=== PATIENT | female | born 1955 | race Caucasian/White ===

== ENCOUNTER 2019-07-05 15:44 | Outpatient (CLI) | payer OTHER, MEDICARE, SELFPAY ==
--- NOTE | 2019-07-05 16:00 | MR_ITS ---
WS: [id number] MRI LEFT KNEE HISTORY: pain COMPARISON: Knee radiograph 02/06/2019 Anterior cruciate ligament: Intact. Posterior cruciate ligament: Intact. Medial collateral ligament: Intact. Posterior lateral corner structures: PCL is being displaced from the knee joint by a large meniscal e xtrusion and osteophytes. No tear. Medial menisci: Intact. Normal signal, size and shape. Lateral meniscus: Anterior and posterior horns are abnormal shape and signal. Meniscal extrusion beyo nd the joint space. Horizontal tear in the posterior horn extends to the inferior articular surface. Extensor mechanism: Distal quadriceps tendon and patellar tendons are intact. Fluid and soft tissue: Small suprapatellar joint effusion. Lobulated Hogue's cyst extends over length of 7.0 cm. Osseous and articular structures: Patellofemoral compartment: Cartilage is intact. No displacement or marrow edema. Medial compartment: Mild narrowing of the medial compartment. No marrow edema in the cartilage is int act. Lateral compartment: Severe narrowing of the lateral compartment internal derangement. There is bone upon bone with marrow edema, complete loss of cartilage with meniscal extrusion and complex tears. Os teophytes extend laterally from the tibial plateau and femoral condyle. There is additional loss of c artilage over the posterior femoral condyle and subchondral cystic edema. MR/MR knee LT wo con* [id number] IMPRESSION: 1. Severe internal derangement lateral compartment of the LEFT knee. Complete loss of cartilage with bone upon bone and extruded meniscus with meniscal tears . 2. Large Hogue's cyst.
== END 2019-07-05 15:45 | disposition home or self-care (01) ==
PROVIDERS: Family Provider Family Medicine; PCP Family Medicine; Visit Provider Orthopaedic Surgery
DX: M71.22 Synovial cyst of popliteal space [Baker], left knee (principal); M25.562 Pain in left knee
CPT/HCPCS: 73721

== ENCOUNTER 2019-08-08 06:58 | Outpatient (CLI) | payer OTHER, MEDICARE, SELFPAY ==
--- NOTE | 2019-08-08 07:15 | MR_ITS ---
WS: [id number] MRI RIGHT KNEE HISTORY: Chronic pain COMPARISON: 02/06/2019 radiograph. Anterior cruciate ligament: Intact. Posterior cruciate ligament: Intact. Medial collateral ligament: Intact. Posterior lateral corner structures: Fluid surrounding the popliteus tendon with increased signal in the lateral corner structures. Medial menisci: Anterior and posterior horns are abnormal. Horizontal tear extending through the post erior horn with abnormal signal extending toward the meniscal root and also into the body of the meni scus. The anterior horn contains a horizontal tear and is partially extruded. Lateral meniscus: On the very last image through the posterior horn towards the meniscal root is incr eased signal extending to the superior articular surface. Anterior horn as a normal triangular struct ure is not identified. Extensor mechanism: Distal quadriceps tendon and patellar tendons are intact. Fluid and soft tissue: Moderate-sized joint effusion. Large lobulated Hogue's cyst extends over a stevie gth of at least 8.2 cm. Small loose bodies within the Hogue's cyst. Small amount of fluid surrounding the popliteus tendon. Osseous and articular structures: Patellofemoral compartment: Normal. Medial compartment: Severe narrowing medial compartment with bone upon bone with complete loss of car tilage. Subchondral edema involving the femoral condyle and tibial plateau. Small osteophytes. There is an osteochondral defect in the midportion of the femoral condyle. Lateral compartment: Moderate narrowing of the lateral compartment with osteophytes. Thinning of the cartilage with fissuring. No full-thickness defect. There is a small amount of marrow edema at the ba se of the lateral tibial spine. MR/MR knee RT wo con* [id number] IMPRESSION: 1. Severe osteoarthritis in the medial compartment. Bone upon bone with loss o f cartilage, subchondral edema and meniscal tears. 2. Moderate-sized joint effusion. 3. Large lobulated Hogue's cyst with loose bodies. 4. Fluid surrounding the popliteus tendon 5. Abnormal lateral menisci. Anterior meniscus is macerated. On the very last image through the meniscal root of the posterior horn is increased signal. Thi s increased signal may be external to the meniscal root. 6. Mild to moderate osteoarthritis lateral compartment.
== END 2019-08-08 06:59 | disposition home or self-care (01) ==
LOC: RADSHAW 07:01
PROVIDERS: Family Provider Family Medicine; PCP Family Medicine; Visit Provider Orthopaedic Surgery
DX: M25.561 Pain in right knee (principal); G89.29 Other chronic pain; M17.11 Unilateral primary osteoarthritis, right knee; M25.461 Effusion, right knee; M71.21 Synovial cyst of popliteal space [Baker], right knee
CPT/HCPCS: 73721

== ENCOUNTER 2020-01-08 08:40 | Inpatient (IN) | payer OTHER, MEDICARE, SELFPAY ==
--- NOTE | 2020-01-02 10:52 | ECG_ITS ---
[facility] Test Date: 2020-01-02 Pat Name: Mariano Summers Department: Room: Gender: Female Liaison Officer: : 1955 Requested By: Lian Palomo Order Number: [id number] [place] MD: Vanessa Mantilla M.D. Measurements Intervals [place] Rate: 73 P: 48 [place]: 206 QRS: 67 QRSD: 97 T: 62 QT: 410 QTc: 454 Interpretive Statements SINUS RHYTHM NONSPECIFIC T-WAVE ABNORMALITY No previous ECG available for comparison Electronically Signed On 01-02-2020 17:29:22 CDT by Vanessa Mantilla M.D. [id number]
[2020-01-02 10:54] VITALS: BMI 27.4
[2020-01-02 10:54] LABS: Basophils % 0.5 %; Eosinophils # 0.1 10^3/uL (0.0-0.8); Eosinophils % 1.4 %; Hematocrit 43.1 % (37.0-47.0); Lymphocytes # 1.3 10^3/uL (0.8-4.8); Lymphocytes % 19.6 %; Mean Corpuscular HGB Conc 32.5 g/dL (30.0-36.0); Mean Corpuscular Hemoglobin 31.2 pg (28.0-34.0); Mean Platelet Volume 9.5 fL (7.4-10.4); Monocytes # 0.5 10^3/uL (0.2-0.9); Monocytes % 7.2 %; Neutrophils # 4.67 10^3/uL (1.8-7.7); Nucleated Red Blood Cells % 0 %; Platelet Count 280 10^3/cmm (130-400); Red Blood Count 4.49 10^6/uL (4.1-5.3); Red Cell Distribution Width 12.3 % (12.1-15.1); White Blood Count 6.6 10^3/uL (4.0-10.0)
--- NOTE | 2020-01-02 11:14 | ANES.PREANE2 ---
Pre-Anesthetic Assessment Pre-Anesthetic Assessment: Height/Weight: Height 1.6 m Weight 70.307 kg Preop Diagnosis: OA Proposed Procedure: Operation Date: 01/08/20 07:00 Proposed Procedures p Total Knee Arthroplasty 20173 M17.0(Left) - Mac Gaxiola MD Familial anesthetic complications: None Social: Social History: No alcohol and No tobacco Exam: Pre-Anes Outpt Exam: alert, oriented x 3, clear to auscultation bilaterally and regular rate & rhythm Airway: Cervical ROM: WNL Dentition: Chipped, False and Partials Pulmonary: Pulmonary: None reported Metabolic: Metabolic: Thyroid Anesthetic Plan: ASA status: 2 Anesthesia: Eval. for regional block and Regional (specify below) Other: Will attempt spinal, though patient afraid of needles. informed her she can ask us to stop at anytime if she become uncomfortable Risk of > 500 ml blood loss (7ml/kg in children): No PFSH Anesthesia PFSH: Medical History Osteoarthritis of knees, bilateral Primary osteoarthritis of right knee Family History Denies family history of Diabetes CAD (coronary artery disease) Clotting disorder Dementia Hyperlipidemia Psychiatric illness Chronic kidney disease (CKD) Suicide Anesthesia complication Bleeding disorder Family history of premature coronary artery disease Lung disease Cancer Hypertension Stroke Social History (Updated 01/02/20 @ 10:39 by Merissa Nicole) Smoking and tobacco status: former smoker Alcohol intake: never Data Anesthesia CBC & Chem 7: 01/02/20 10:45 Other Labs: Laboratory Results - last 48 hr 01/02/20 10:45 WBC 6.6 RBC 4.49 Hgb 14.0 Hct 43.1 MCV 96.0 MCH 31.2 MCHC 32.5 RDW 12.3 Plt Count 280 MPV 9.5 Neut % (Auto) 71.0 Lymph % (Auto) 19.6 Cannon % (Auto) 7.2 Eos % (Auto) 1.4 Baso % (Auto) 0.5 Neut # (Auto) 4.67 Lymph # (Auto) 1.3 Cannon # (Auto) 0.5 Eos # (Auto) 0.1 Baso # (Auto) 0.0 Nucleated RBC % (auto) 0 Nucleated RBCs # 0.0 Cardiac Studies: No Data to Display
--- NOTE | 2020-01-02 14:17 | SUR.PREOP ---
spoke with pt and phone and pt unable to come for drive thru covid testing at 11am due to unable to get off work at [employer], pt to come in on wednesdayjanuary 04 at 1530 after work to get test done
[2020-01-07 16:28] LABS: Coronavirus Lab Test PTC Negative
[2020-01-08] VITALS (11 sets, daily range): BP systolic 110–150; BP diastolic 53–94; PULSE 64–98; RESP 12–18; TEMP 36.1–36.5; O2SAT 92–98
[2020-01-08] MEDS: sodium chloride 0.9% 1,000 ML 30 ML IV (06:01)
--- NOTE | 2020-01-08 06:16 | P.ANESUD_ITS ---
Pre-Anesthetic Update Pre-Anesthetic Assessment: Date of Surgery/Procedure: 01/08/20 Preop Zoey gnosis: Osteoarthritis left knee Proposed Procedure: Operation Date: 01/08/20 07:00 Proposed Procedures p Total Knee Arthroplasty 69881 M17.0(Left) - Mac Gaxiola MD Last Intake: Intake Last Liquid Date 01/08/20 Last Liquid Time 05:00 Last Solid Date 01/07/20 Last Solid Time 20:00 Labs Last 48hrs: Laboratory Results - last 48 hr 01/05/20 16:04 Nasal/Oral COVID-1 9 PCR Negative Vitals: Temperature 96.9 F L 01/08/20 05:40 Temperature Source Temporal Artery S can 01/08/20 05:40 Pulse Rate 81 01/08/20 05:40 Respiratory Rate 18 01/08/20 05:40 Blood Pressure 150/94 01/08/20 05:40 Blood Pressure Yue n 112 01/08/20 05:40 Pulse Oximetry 95 01/08/20 05:40 Oxygen Delivery Me thod 01/08/20 05:40 Cardiac Studies: No Data to Display
--- NOTE | 2020-01-08 06:31 | ANES.PROC ---
Anesthesia Procedures Procedure/Date: 01/08/20 Nerve Block ^: Nerve Block 1: Main Anesthesia: general anesthesia Time Out Performed: Yes Consent: requested by attending/covering physician, from patient, risks and benefits reviewed and patient agrees to proceed Nerve block location: adductor canal (L) Anesthesia monitors applied: pulse oximetry and oxygen Nerve block position: semi sitting Anesthetic Used: ropivicaine 0.5% and with decadron (4 mg) Amount of anesthesia used (mL): 30 Ultrasound used to: recognize landmarks Nerve Stimulator Used?: Yes Interscalene/Femoral BLK: 4 stimuplex 21 g needle used for position and inplane approach and visualize local anesthetic spread Injection: neg aspiration of heme Patient Tolerated Procedure: well Complications: none
[2020-01-08] MEDS: midazolam 1 mg/mL INJ 2 mL 2 MG IVP (06:34)
--- NOTE | 2020-01-08 06:55 | W.PM.OPSUD ---
Surgery/Procedure H&P Update DATE OF PROCEDURE: January 08, 2020 PREOP DIAGNOSIS: Osteoarthritis left knee PLANNED PROCEDURE: Operation Date: 01/08/20 07:00 Proposed Procedures p Total Knee Arthroplasty 12517 M17.0(Left) - Mac Gaxiola MD
--- NOTE | 2020-01-08 06:56 | W.PM.OPSFHP ---
Same Day Surgery H&P Indication for Procedure/HPI DATE OF PROCEDURE: January 08, 2020 CHIEF COMPLAINT/INDICATIONFOR SURGICAL PROCEDURE: OA L knee PREOP DIAGNOSIS: Osteoarthritis left knee PLANNED PROCEDRUE: Operation Date: 01/08/20 07:00 Proposed Procedures p Total Knee Arthroplasty 07202 M17.0(Left) - Mac Gaxiola MD Medications/Allergies* Home Medications Medication Instructions Recorded Confirmed Type ascorbate calcium (vitamin C) 500 1,000 mg PO DAILY 06/16/19 01/08/20 History mg tablet escitalopram oxalate 20 mg tablet 20 mg PO DAILY 06/16/19 01/08/20 History levothyroxine 100 mcg capsule 100 mcg PO DIRECTED 06/16/19 01/08/20 History levothyroxine 88 mcg capsule 88 mcg PO DIRECTED 06/16/19 01/08/20 History docusate sodium [Stool Softener] 300 mg PO BEDTIME 01/02/20 01/08/20 History trazodone 25 mg PO BEDTIME 01/02/20 01/08/20 History vitamin Z05-cjezn acid 2 tab PO DAILY 01/02/20 01/08/20 History Allergies/Adverse Reactions Allergy/AdvReac Type Severity Reaction Status Date / Time Sulfa (Sulfonamide Allergy algy-rash Verified 11/21/19 08:03 Antibiotics) Current Medications: Generic Name Dose Route Start Last Admin Trade Name Freq PRN Reason Stop Dose Admin Sodium Chloride 1,000 mls @ 30 mls/hr 01/08/20 05:30 01/08/20 06:01 Sodium Chloride 0.9% IV 01/09/20 05:29 30 mls/hr .Q24H INDER Administration Midazolam HCl 2 mg 01/08/20 05:28 01/08/20 06:34 Versed IVP 2 mg Q5M PRN Administration Preop Anxiety Pertinent History/Comorbid Conditions* Medical History (Updated 11/21/19 @ 08:53 by Mac Gaxiola MD) Osteoarthritis of knees, bilateral Primary osteoarthritis of right knee Family History (Updated 06/16/19 @ 08:37 by Nayely Swenson LPN) Denies family history of Diabetes CAD (coronary artery disease) Clotting disorder Dementia Hyperlipidemia Psychiatric illness Chronic kidney disease (CKD) Suicide Anesthesia complication Bleeding disorder Family history of premature coronary artery disease Lung disease Cancer Hypertension Stroke Social History Smoking and tobacco status: former smoker Alcohol intake: never Pertinent Exam Findings alert, oriented x 3, clear to auscultation bilaterally and regular rate & rhythm Recommendations Surgery/Procedure today Coding Level of Care Code Acute Nurses' Association Counselor for Wilda Singh
[2020-01-08] MEDS: tranexamic acid 1,000 mg/10mL SDV 1000 MG IRRIGATION (08:00)
[2020-01-08] MEDS: ketorolac 30 mg/mL INJ IM (08:00)
[2020-01-08] MEDS: EPINEPHrine 1 mg/mL INJ XX (08:00)
--- NOTE | 2020-01-08 08:47 | PM.OP ---
Operative Report Date of procedure: January 08, 2020 Pre-op Diagnosis: Osteoarthritis left knee Post-op diagnosis: same Post-op Findings: The patient had eburnation of the lateral femoral condyle and lateral tibial plateau with maceration of the lateral menisci Procedure Done: Left total knee arthroplasty Implants: Shobha total knee arthroplasty components were used includin) Size 4 triathalon cruciate retaining femoral component 2) Size 3 Tritanium tibial component 3) Size 3/11 mm thickness CR tibial bearing insert Pathology: none sent Surgeon: Mac Gaxiola Anesthesia: Nerve Block (Final/adductor canal block) Estimated blood loss (mL): 150 Findings: The patient had eburnation of the lateral femoral condyle and lateral tibial plateau with maceration of the lateral menisci Condition: stable Disposition: PACU Brief History: The patient is a 64-year-old female with an MRI that revealed a lateral compartment degenerative changes and maceration of the lateral meniscus. She failed reasonable conservative measures including anti-inflammatories even steroid injections. Options were discussed and she elected to proceed with total knee arthroplasty to improve pain and function Procedure: The patient was taken to the operating room. Patient was given 1 g of tranexamic acid . The above anesthesia provided by the anesthesia service. A timeout was performed. The patient was prepped and draped in the usual fashion with the lower extremity exposed. A anterior incision was made, midline, from a point proximal to the patella to the distal tibial tubercle. The knee was entered through a medial parapatellar approach. The patella could be displaced laterally and the knee flexed. The patellar fat pad was resected to provide better visibility. Retractors were placed medially and laterally adjacent to the tibial plateau. The femoral canal was drilled in line with the longitudinal axis of the femur. Intramedullary femoral guide for used to make a distal femoral cut in 5 degrees of valgus, resecting 8 mm from the more prominent condyle. Next the extra medullary tibial guide was placed in alignment with the longitudinal axis of the tibia. The cutting guides were set to remove just over 9 mm from the high tibial plateau. The proximal tibia was then cut. The femoral measuring guide was then placed over the distal femur. Rotation was verified checking the relationship of the guide to the condyle and the trochlear groove. The femur was measured and cut for the desired femoral component. The desired tibial baseplate was then chosen. A trial reduction with the femur tibial baseplate and polyethylene was done, assuring that the knee was stable throughout full motion. Ligament balancing involved nothing more than a release of the deep medial collateral ligament.The tibia was prepared for the tibial baseplate. The patella was carefully inspected with no significant chondromalacia identified. Decision was made to proceed with no resurfacing of the patella all surfaces were cleaned with pulsatile lavage. The femur and tibia were then press-fit into place. The posterior capsule and collateral ligaments were then injected with a solution of 100 mL of 0.2% ropivacaine, 1 mL of a 1:1000 epinephrine solution, and 30 mg of Toradol. Final polyethylene component was then snapped into place into the tibia. 2 grams of tranexamic acid were applied to the wound. The tourniquet was deflated. The tranxanemic acid was left contact with the knee for 5 minutes before the knee was irrigated with saline. The extensor retinaculum was closed with 1 Ethibond. The subcutaneous tissues were closed with 2-0 Vicryl and the skin was closed with skin tiny. A compressive dressing was applied. The patient was taken to recovery room in stable condition.
--- NOTE | 2020-01-08 09:02 | SUR.PHASEI ---
RECIEVED PT AWAKE ALERT ON RA PT ALERT HOB AT 30 DEGREES, PT VSS LT KNEE DRESSING D/I NO DRAIN FIRST ICE TO SITE DISTAL FOOT PINK WARM WITH STRONG REGULAR PULSE NOTED MARKED AND BILAT FOOT PUMPS ON BARRETT TO DD STATLOCK PLACED TO RT THIGH.YELLOW URINE NOTED TO TUBING AND BAG IN SMALL AMT.
--- NOTE | 2020-01-08 09:03 | XRR_ITS ---
PROCEDURE INFORMATION: Exam: XR Left Knee Exam date and time: 01/08/2020 9:14 AM Age: 64 years old Clinical indication: Device placement; Joint replacement hardware; Prior surgery; Surgery date: Post-operative (0-2 days); Surgery type: Left total knee arthroplasty TECHNIQUE: Imaging protocol: XR Left knee. Views: 3 views. COMPARISON: MR knee LT wo con* [id number] 07/05/2019 4:05 PM FINDINGS: Bones/joints: Left knee arthroplasty, without postoperative complication. Anatomic alignment. Soft tissues: Postoperative subcutaneous emphysema and skin tiny. XR/XR knee LT 3V* [id number] IMPRESSION: Left knee arthroplasty, without postoperative complication.
--- NOTE | 2020-01-08 09:05 | SUR.PHASEI ---
PT WAS A SPINAL AND LEVEL BELOW T 12 PT ABLE TO MOVE BILAT FEET TO COMMAND NOT ABLE TO LIFT KNEE YET.
--- NOTE | 2020-01-08 09:14 | PM.PACU ---
PACU note PACU note: Spinal block receding, moving feet Post-Anesthesia Exam: awake and vital signs stable Disposition: admitted
[2020-01-08] MEDS: mupirocin oint 22 gm 1 APPLIC NASAL (10:47)
[2020-01-08] MEDS: ondansetron 2 mg/ML SDV 2 mL 4 MG IVP ×2 (10:52→18:15)
[2020-01-08] MEDS: sodium chloride 0.9% 1,000 ML 75 ML IV ×2 (11:10→23:10)
[2020-01-08] MEDS: metoclopramide 5 mg/mL SDV 2 mL 10 MG IV (13:32)
--- NOTE | 2020-01-08 19:24 | PC.NURSE ---
Pt has had no complaints of pain today. She has had intermittent nausea and vomiting, which was treated with Zofran x2 doses and Reglan x1 dose (see MAR). Bilateral foot pumps in place. Left knee surgical dressing dry and intact, with ice pack in place. Nasal cannula applied at 2L/min for intermittent oxygen desaturations during sleep, with SpO2 as low as 77%, which resolves quickly when pt is awakened and instructed to deep breathe. Pt states she does not normally wear oxygen.
[2020-01-08] MEDS: docusate sodium 100 mg Capsule 300 MG PO (21:46)
[2020-01-08] MEDS: chlorhexidine gluconate 0.12% Btl 473 mL 30 ML MUCOUS MEM (21:46)
[2020-01-08] MEDS: trazodone 50 mg Tablet 25 MG PO (21:47)
[2020-01-09] VITALS (11 sets, daily range): BP systolic 124–171; BP diastolic 69–78; PULSE 72–84; RESP 17–20; TEMP 36.8–37.1; O2SAT 95–98
[2020-01-09] MEDS: oxyCODONE 5 mg IR Tab/Cap PO ×5 (04:24→20:17)
[2020-01-09 04:54] LABS: Hemoglobin 11.5 g/dL (11.5-15.3)
--- NOTE | 2020-01-09 07:19 | ANE.PACU2 ---
Inpatient post-anesthesia follow up: Airway intact: Yes Vital signs: Temperature 98.8 F Pulse Rate 72 Respiratory Rate 18 Blood Pressure 124/69 Pulse Oximetry 97 Oxygen Delivery Me thod Room Air Oxygen Flow Rate Fraction of Inspir ed Oxygen Hydration adequate: Yes Nausea and vomiting: No Pain level: 4 Mental status: Baseline Additional Comments: Patient developed PONV post surgery. Possibly d/t morphine. Controlled now.
[2020-01-09] MEDS: ondansetron 2 mg/ML SDV 2 mL 4 MG IVP (08:24)
[2020-01-09] MEDS: aspirin 325 mg EC Tablet PO (08:28)
[2020-01-09] MEDS: chlorhexidine gluconate 0.12% Btl 473 mL 30 ML MUCOUS MEM ×4 (08:28→21:12)
[2020-01-09] MEDS: mupirocin oint 22 gm 1 APPLIC NASAL ×2 (08:29→17:45)
[2020-01-09] MEDS: levothyroxine 88 mcg Tablet PO (10:03)
[2020-01-09] MEDS: sodium chloride 0.9% 1,000 ML 75 ML IV (13:47)
--- NOTE | 2020-01-09 17:38 | P.PN_ITS ---
Subjective Subjective: Interval history: Patient was vomiting last night. Pain uncontrolled with oral medications required IV Tylenol today Vitals/I&O/Wt Last Vital Signs Temp 98.6 F 01/09/20 15:56 Pulse 83 01/09/20 15:56 Resp 18 01/09/20 16:29 BP 171/77 01/09/20 15:56 Pulse Ox 96 01/09/20 15:56 01/09/20 01/09/20 01/09/20 06:59 14:59 22:59 Intake Total 950 / 1280 1310 / 1310 Output Total 350 / 1200 400 / 400 Balance 600 / 80 910 / 910 Physical Exam Narrative: EXAM NARRATIVE: Knee dressing clean and dry. Minimal swelling. No distal neurovascular deficit Urinary Catheter Management^: F: Cath Placed During This Visit: yes Urinary Catheter Date of Insertion: 01/08/20 Urinary Catheter Time of Insertion: 07:20 Data : 01/09/20 04:10 A&P Assessment and plan (1) Status post left knee replacement: Will keep overnight until tolerating pain with oral medications. Anticipate discharge tomorrow Status: Acute Attestations Medical Necessity Statement*: Patient has pain uncontrolled with oral medications alone. Will change to inpatient status and likely discharge home tomorrow Coding Level of Care Code Acute [employer] Truck Driver for Wilda Signh Diagnoses Status post left knee replacement Z96.652
--- NOTE | 2020-01-09 18:14 | PC.NURSE ---
summary pt started having severe pain prior to noon and was unable to sit on side of bed with phys tx. Which he worked with her while in bed because of that. I got a order from dr faith of [facility] which really helped her. pain is better now.
[2020-01-09] MEDS: docusate sodium 100 mg Capsule 300 MG PO (21:12)
[2020-01-09] MEDS: trazodone 50 mg Tablet 25 MG PO (21:12)
[2020-01-10] VITALS (10 sets, daily range): BP systolic 127–166; BP diastolic 63–88; PULSE 81–95; RESP 14–22; TEMP 36.9–37.4; O2SAT 88–97
[2020-01-10] MEDS: oxyCODONE 5 mg IR Tab/Cap PO ×3 (00:10→09:52)
--- NOTE | 2020-01-10 08:14 | PM.PN ---
Subjective Subjective: Interval history: Pain better controlled with oral meds. No vomiting last night. Vitals/I&O/Wt Last Vital Signs Temp 98.6 F 01/10/20 07:42 Pulse 92 01/10/20 07:42 Resp 18 01/10/20 07:42 BP 158/88 01/10/20 07:42 Pulse Ox 93 01/10/20 07:42 01/09/20 01/10/20 01/10/20 22:59 06:59 14:59 Intake Total 240 / 1550 400 / 1950 1100 / 1100 Balance 240 / 1150 400 / 1550 1100 / 1100 Physical Exam Narrative: EXAM NARRATIVE: Left knee incision clean and dry. Expected left knee swelling. Urinary Catheter Management^: F: Cath Placed During This Visit: yes Urinary Catheter Date of Insertion: 01/08/20 Urinary Catheter Time of Insertion: : Data : 01/09/20 04:10 A&P Assessment and plan (1) Status post left knee replacement: Continue to mobilize with therapy. We will try for discharge today. Patient struggling with pain control and nausea with pain meds and progress is slow. Status: Acute Attestations Medical Necessity Statement*: Will discharge home if pain controlled with meds and independent with walker. Coding Level of Care Code Acute Animal Damage Control Agent for Wilda Singh Diagnoses Status post left knee replacement Z96.652
[2020-01-10] MEDS: aspirin 325 mg EC Tablet PO (09:29)
[2020-01-10] MEDS: levothyroxine 88 mcg Tablet PO (09:29)
[2020-01-10] MEDS: chlorhexidine gluconate 0.12% Btl 473 mL 30 ML MUCOUS MEM ×4 (09:30→20:16)
[2020-01-10] MEDS: mupirocin oint 22 gm 1 APPLIC NASAL ×2 (09:31→17:33)
--- NOTE | 2020-01-10 10:18 | PC.NURSE ---
Students picked up tray.
[2020-01-10] MEDS: ondansetron 2 mg/ML SDV 2 mL 4 MG IVP (11:42)
--- NOTE | 2020-01-10 18:03 | PC.NURSE ---
END OF SHIFT SUMMARY pt slighty drowsy this am, but is A/Ox4. pt able to take morning meds well. pt able to get up to chair with standby assistance, but is transferring well. pt stated some nausea, but was relieved with Zofran. pt was able to rest well this afternoon and has since stated that she is feeling much better. pt is able to move left lower extremity and has been improving all throughout the day.
[2020-01-10] MEDS: docusate sodium 100 mg Capsule 300 MG PO (20:14)
[2020-01-10] MEDS: HYDROcodone-acetaminophen 5-325 mg Tablet 1 TAB PO (20:15)
[2020-01-10] MEDS: trazodone 50 mg Tablet 25 MG PO (20:16)
[2020-01-11 04:08] VITALS: BP 149/76; PULSE 92; RESP 18; TEMP 36.8; O2SAT 96
[2020-01-11] MEDS: HYDROcodone-acetaminophen 5-325 mg Tablet 1 TAB PO (04:31)
[2020-01-11 07:18] VITALS: BP 150/78; PULSE 86; RESP 18; TEMP 37.2; O2SAT 95
[2020-01-11] MEDS: mupirocin oint 22 gm 1 APPLIC NASAL (08:07)
[2020-01-11] MEDS: levothyroxine 88 mcg Tablet PO (08:08)
[2020-01-11] MEDS: chlorhexidine gluconate 0.12% Btl 473 mL 30 ML MUCOUS MEM (08:08)
[2020-01-11] MEDS: aspirin 325 mg EC Tablet PO (08:08)
--- NOTE | 2020-01-11 08:39 | PM.DCS ---
Discharge Providers Date of Admission: 01/09/20 17:37 Date of Discharge: January 11, 2020 Attending Provider at Admission: Mac Gaxiola MD Attending Provider at Discharge: Mac Gaxiola MD Primary Care Provider: Abhay Chamorro MD Diagnoses at Discharge Discharge Diagnosis (1) Status post left knee replacement: Status: Acute Reason for Visit Reason for Visit: bilaternal knee osteoarthtrits Hospital Course Hospital Course: The patient tolerated surgery well. They remained hemodynamically stable. They was begun on aspirin and sequential compression devices for DVT prophylaxis. The patient was mobilized with therapy beginning the day of surgery and by the first postoperative day independent with the walker. He continues to have problems with pain control and nausea with medications. By the third postoperative day she was tolerating hydrocodone and thought stable for discharge as the pain was adequately controlled and they were fully mobile they were discharged home. Physical Exam Narrative: EXAM NARRATIVE: On the day of discharge the knee incision was clean. They had no drainage. There is minimal swelling in the thigh and knee and the calf. No distal neurovascular deficits were noted Urinary Catheter Management^: F: Cath Placed During This Visit: yes Urinary Catheter Date of Insertion: 01/08/20 Urinary Catheter Time of Insertion: 07:20 Discharge Data Data Completed and Pending: Completed Studies During Hospitalization Category Date Time Status XR knee LT 3V* [id number] Routine Exams 01/08/20 09:03 Completed Vitals: Last Vital Signs Temp 98.9 F 01/11/20 07:18 Pulse 86 01/11/20 07:18 Resp 18 01/11/20 07:18 BP 150/78 01/11/20 07:18 Pulse Ox 95 01/11/20 07:18 Discharge Plan Discharge Patient Disposition: Home Health Service Condition: Stable Prescriptions: New hydrocodone-acetaminophen 5-325 mg Tablet 1 tab PO Q4H PRN (Reason: Moderate Pain) 7 Days Qty: 40 RF: 0 aspirin 325 mg Tablet,Delayed Release (Dr/Ec) 325 mg PO DAILY 30 Days Qty: 30 RF: 0 Continued ascorbate calcium (vitamin C) 500 mg tablet 1,000 mg PO DAILY RF: 0 levothyroxine 100 mcg capsule 100 mcg PO DIRECTED RF: 0 levothyroxine 88 mcg capsule 88 mcg PO DIRECTED RF: 0 escitalopram oxalate 20 mg tablet 20 mg PO DAILY RF: 0 trazodone 50 mg Tablet 25 mg PO BEDTIME RF: 0 vitamin H07-[id number] acid 0.5-1 mg Tablet 2 tab PO DAILY RF: 0 docusate sodium [Stool Softener] 100 mg Capsule 300 mg PO BEDTIME RF: 0 Discharge Orders: Discharge Order (Routine); Ordered 01/11/20 Ordered By: Mac Gaxiola Referrals: [facility] [Outside] (This is your home health provider. They will be calling to set up a time to begin home health services. If you do not hear from them in 1-2 days you may call their office at the phone number provided.) Mac Gaxiola MD [Physician] - 01/23/20 1:30 pm Discharge Diet: Advance as tolerated Discharge Activity: Limit activity as instructed Patient Instructions: Total Knee Replacement (DC) Activity Restrictions/Additional Instructions: May shower once incisions completely free of drainage. Discontinue knee dressing in 24-48 hours. Replaced dressings as needed. take Eek for breakthrough pain. Exercises per physical therapy. 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
[2020-01-11 12:00] VITALS: BP 144/83; PULSE 92; RESP 18; TEMP 36.4; O2SAT 95
[2020-01-11 14:23] VITALS: BP 144/83; PULSE 92; RESP 18; TEMP 36.4; O2SAT 95
== END 2020-01-11 14:41 | disposition home health service (06) | DRG 470 ==
LOC: MEDSURG 08:40
PROVIDERS: Admitting Provider Orthopaedic Surgery; PCP Family Medicine; Visit Provider Orthopaedic Surgery
PROC: 0SRD0JZ Replacement of Left Knee Joint with Synthetic Substitute, Open Approach (ICD-10-PCS; CPT 27447; principal; 2020-01-08 07:00)
DX: M17.0 Bilateral primary osteoarthritis of knee (principal); Z87.891 Personal history of nicotine dependence; G89.18 Other acute postprocedural pain
CPT/HCPCS: 12345; 36415; 51702; 73562; 85018; 85025; 87635; 93005; 96374; 96375; 97110; 97116; 97161; 97165; 97530; 97535; C1776; G0378; J0131; J0171; J0690; J1100; J1580; J1885; J2250; J2274; J2405; J2704; J2765; J2795; J7030

== ENCOUNTER 2020-01-29 08:33 | Outpatient (RCR) | payer OTHER, MEDICARE, SELFPAY | END 2020-02-07 23:59 | disposition home or self-care (01) | LOC: SPT 08:33 | PROVIDERS: PCP Family Medicine; Referring Provider Orthopaedic Surgery; Visit Provider Orthopaedic Surgery | DX: Z47.1 Aftercare following joint replacement surgery (principal); Z96.652 Presence of left artificial knee joint | CPT/HCPCS: 97110; 97116; 97161 ==

== ENCOUNTER 2020-02-08 06:00 | Outpatient (RCR) | payer OTHER, MEDICARE, SELFPAY | END 2020-03-09 23:59 | disposition home or self-care (01) | LOC: SPT 06:00 | PROVIDERS: PCP Family Medicine; Referring Provider Orthopaedic Surgery; Visit Provider Orthopaedic Surgery | DX: Z47.1 Aftercare following joint replacement surgery (principal); Z96.652 Presence of left artificial knee joint | CPT/HCPCS: 97110 ==

== ENCOUNTER → 2020-02-21 08:14 | Outpatient (BNVA) | payer OTHER, MEDICARE, SELFPAY | PROVIDERS: PCP Family Medicine; Visit Provider Orthopaedic Surgery | DX: Z47.1 Aftercare following joint replacement surgery (principal); Z96.652 Presence of left artificial knee joint | CPT/HCPCS: 73560; 73565 ==

== ENCOUNTER 2020-06-05 15:35 | Outpatient (CLI) | payer OTHER, MEDICARE, SELFPAY ==
--- NOTE | 2020-06-05 15:41 | MM_ITS ---
WS: [id number] BILATERAL DIGITAL SCREENING MAMMOGRAPHY WITH CAD CLINICAL INFORMATION: SCR HISTORY: Screening mammogram. No current complaints. COMPARISON: March 10, 2019 TECHNIQUE: Bilateral CC and MLO views. FINDINGS: Scattered fibroglandular densities bilaterally. No suspicious focal mass, asymmetry, calcifications, or architectural distortion. No evidence of malignancy. MM/[place] [id number] IMPRESSION: BI-RADS: 1-Negative FOLLOW UP: 1 Year Follow-up Recommend return to annual screening mammography.
== END 2020-06-05 15:36 | disposition home or self-care (01) ==
LOC: RADSHAW 15:36
PROVIDERS: PCP Family Medicine; Visit Provider Family Medicine
DX: Z12.31 Encounter for screening mammogram for malignant neoplasm of breast (principal)
CPT/HCPCS: 77067

== ENCOUNTER 2020-08-09 05:54 | Day surgery (SDC) | payer OTHER, MEDICARE, SELFPAY ==
[2020-08-08 13:48] VITALS: BMI 28.1
[2020-08-09 06:14] VITALS: BP 135/77; PULSE 85; RESP 18; TEMP 36.3; O2SAT 91
[2020-08-09] MEDS: sodium chloride 0.9% 1,000 ML 30 ML IV (06:20)
--- NOTE | 2020-08-09 06:51 | ANES.PREANE2 ---
Pre-Anesthetic Assessment Pre-Anesthetic Assessment: Height/Weight: Height 1.6 m Weight 72.121 kg Temp Pulse Resp BP Pulse Ox 97.3 F L 85 18 135/77 91 08/09/20 06:14 08/09/20 06:14 08/09/20 06:14 08/09/20 06:14 08/09/20 06:14 Preop Diagnosis: Screening Proposed Procedure: Operation Date: 08/09/20 07:00 Proposed Procedures p Colonoscopy z12.11 40612(Not Applicable) - Marito Welch MD Was Beta Randal taken within 24 hours: N/A Was Clonidine taken within 24 hours: N/A Last intake: Intake Last Liquid Date 08/08/20 Last Liquid Time 23:30 Last Solid Date 08/07/20 Last Solid Time 20:00 Social: Social History: No alcohol and No tobacco Exam: Pre-Anes Outpt Exam: alert, oriented x 3, clear to auscultation bilaterally and regular rate & rhythm Airway: Submandibular: WNL Cervical ROM: WNL MP: 2 Dentition: Chipped History/ROS: No significant history except as noted and No significant complaints Pulmonary: Pulmonary: None reported CV/HEM: CV/HEM: None reported : : None reported Hepatic: Hepatic: None reported GI: GI: None reported Metabolic: Metabolic: Thyroid Musc/skel: Musc/skel: None reported Neuropsych: Neuropsych: None reported Anesthetic Plan: ASA status: 2 Anesthesia: Anesthesia Evaluation and MAC Risk of > 500 ml blood loss (7ml/kg in children): No PFSH Anesthesia PFSH: Medical History (Updated 08/09/20 @ 06:54 by Marito Welch MD) Primary osteoarthritis of right knee Family History Denies family history of Diabetes CAD (coronary artery disease) Clotting disorder Dementia Hyperlipidemia Psychiatric illness Chronic kidney disease (CKD) Suicide Anesthesia complication Bleeding disorder Family history of premature coronary artery disease Lung disease Cancer Hypertension Stroke Social History Smoking and tobacco status: former smoker Alcohol intake: never Data Anesthesia Cardiac Studies: No Data to Display
--- NOTE | 2020-08-09 06:52 | W.PM.OPSUD ---
Surgery/Procedure H&P Update DATE OF PROCEDURE: August 09, 2020 DATE H&P PERFORMED: 08/05/20 PREOP DIAGNOSIS: Screening colonoscopy PLANNED PROCEDURE: Operation Date: 08/09/20 07:00 Proposed Procedures p Colonoscopy z12.11 68168(Not Applicable) - Marito Welch MD Related Problem List Diagnoses (1) Colon cancer screening:
[2020-08-09 07:17] VITALS: BP 101/61; PULSE 76; RESP 16; TEMP 36.4; O2SAT 93
[2020-08-09 07:31] VITALS: BP 131/72; PULSE 74; RESP 16; O2SAT 95
--- NOTE | 2020-08-09 13:00 | ANE.PACU2 ---
Inpatient post-anesthesia follow up: Airway intact: Yes Vital signs: Temperature 97.5 F Pulse Rate 74 Respiratory Rate 16 Blood Pressure 131/72 Pulse Oximetry 95 Oxygen Delivery Me thod Room Air Oxygen Flow Rate Fraction of Inspir ed Oxygen Hydration adequate: Yes Nausea and vomiting: No Pain level: 2 Mental status: Baseline
== END 2020-08-09 07:50 | disposition home or self-care (01) ==
PROVIDERS: PCP Family Medicine; Visit Provider Family Medicine
PROC: 0DJD8ZZ Inspection of Lower Intestinal Tract, Via Natural or Artificial Opening Endoscopic (ICD-10-PCS; CPT 45378; principal; 2020-08-09 07:00)
DX: Z12.11 Encounter for screening for malignant neoplasm of colon (principal); Z87.891 Personal history of nicotine dependence; E03.9 Hypothyroidism, unspecified; E78.5 Hyperlipidemia, unspecified; M17.11 Unilateral primary osteoarthritis, right knee
CPT/HCPCS: 12345; 96360; G0121; J2704; J7030

== ENCOUNTER 2020-11-11 22:20 | Inpatient (IN) | payer OTHER, MEDICARE, SELFPAY ==
[2020-11-11 22:40] VITALS: BP 182/89; PULSE 67; RESP 20; TEMP 36.7; O2SAT 97; BMI 26.5
--- NOTE | 2020-11-11 22:44 | XRR_ITS ---
PROCEDURE INFORMATION: Exam: XR Chest Exam date and time: 11/11/2020 10:44 PM Age: 65 years old Clinical indication: Patient HX: Stroke alert. Post covid 2019. TECHNIQUE: Imaging protocol: XR of the chest. Views: 1 view. COMPARISON: [facility] Ribs LEFT w Chest 1v 04/16/2017 3:58 PM FINDINGS: Lungs: Minimal atelectasis left base. Pleural spaces: Unremarkable. No pleural effusion. No pneumothorax. Heart/Mediastinum: Unremarkable. No cardiomegaly. Bones/joints: No acute findings. XR/XR chest 1V portable [id number] IMPRESSION: No acute findings.
--- NOTE | 2020-11-11 22:45 | ECG_ITS ---
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
--- NOTE | 2020-11-11 22:45 | CTR_ITS ---
PROCEDURE INFORMATION: Exam: CT Head Without Contrast Exam date and time: 11/11/2020 10:45 PM Age: 65 years old Clinical indication: Weakness, extremity; Left; Patient HX: Sudden onset of lue weakness. ; Additional info: Symptoms of acute stroke TECHNIQUE: Imaging protocol: Computed tomography of the head without contrast. Radiation optimization: All CT scans at this facility use at least one of these dose optimization techniques: automated exposure control; mA and/or kV adjustment per patient size (includes targeted exams where dose is matched to clinical indication); or iterative reconstruction. Other technique: STROKE PROTOCOL was implemented. COMPARISON: No relevant prior studies available. RADIATION DOSE METRICS: Total DLP (mGy-cm): 851.15 FINDINGS: Brain: Normal. No hemorrhage. Unremarkable white matter. No mass effect. Cerebral ventricles: No ventriculomegaly. Paranasal sinuses: Visualized sinuses are unremarkable. No fluid levels. Mastoid air cells: Visualized mastoid air cells are well aerated. Bones/joints: No acute findings. Soft tissues: Unremarkable. CT/CT head wo con* [id number] IMPRESSION: No acute intracranial abnormality. ASSESSMENT: ASPECTS (Anne Stroke Program Early CT Score) is 10. Radiation Dose CTDIVOL = (mGy): DLP = 851.15 (mGy-cm)
[2020-11-11 22:49] LABS: Glucose Point of Care 118 mg/dL (70-110)
[2020-11-11 22:55] LABS: Basophils % 0.3 %; Eosinophils # 0.2 10^3/uL (0.0-0.8); Eosinophils % 2.8 %; Hematocrit 41.2 % (37.0-47.0); Hemoglobin 13.4 g/dL (11.5-15.3); Lymphocytes # 2.1 10^3/uL (0.8-4.8); Lymphocytes % 30.9 %; Mean Corpuscular HGB Conc 32.5 g/dL (30.0-36.0); Mean Corpuscular Hemoglobin 30.6 pg (28.0-34.0); Mean Corpuscular Volume 94.1 fL (81-99); Mean Platelet Volume 9.6 fL (7.4-10.4); Monocytes # 0.6 10^3/uL (0.2-0.9); Monocytes % 9.4 %; Neutrophils # 3.85 10^3/uL (1.8-7.7); Neutrophils % 56.5 %; Nucleated Red Blood Cells % 0 %; Platelet Count 253 10^3/cmm (130-400); Red Blood Count 4.38 10^6/uL (4.1-5.3); Red Cell Distribution Width 12.8 % (12.1-15.1); White Blood Count 6.8 10^3/uL (4.0-10.0)
--- NOTE | 2020-11-11 23:08 | ED_ITS ---
HPI - Neuro Symptoms/Deficit General: Chief Complaint: Neuro Symptoms/Deficit Stated Complaint: L ARM NUMBNESS, BEGAN @ 1 HR AGO Time Seen by Provider: 11/11/20 22:29 Source: patient Mode of arrival: ambulatory Limitations: no limitations History of Present Illness: HPI Narrative: 65-year-old female states she fell asleep at 930 and was completely normal states she then woke up at 10 and had numbness down her left arm and weakness to her left arm. She denies any history of stroke and is not on any blood thinners. She states she got slight pain in her neck. Patient's weakness is mainly to her hand. States having hard time moving her fingers and extending her wrist. Denies any worsening improving factors Associated symptoms: Deny chest pain, nausea or vomiting Review of Systems Const: Denies: fever(s), chills, body aches or change in appetite Eyes: Denies: blurry vision or eye discomfort ENMT: Denies: throat pain or dental pain Card: Denies: chest pain Resp: Denies: dyspnea GI: Denies: abdominal pain, nausea, vomiting or diarrhea : Denies: dysuria Musc: Reports: neck pain Skin/Breast: Denies: rash Neuro: Reports: weakness in extremities Psych: Denies: depression Wilfredo/Lymph: Denies: easy bruising All/Imm: Denies: urticaria PFSH ED PFSH: Medical History Primary osteoarthritis of right knee Family History Denies family history of Diabetes CAD (coronary artery disease) Clotting disorder Dementia Hyperlipidemia Psychiatric illness Chronic kidney disease (CKD) Suicide Anesthesia complication Bleeding disorder Family history of premature coronary artery disease Lung disease Cancer Hypertension Stroke Social History Smoking and tobacco status: former smoker Alcohol intake: never NIH stroke score NIHSS: Level Of Consciousness - 1a: 0 Level Of Consciousness Questions - 1b: Both Correct Level Of Consciousness Commands - 1c: Both Correct Best Gaze - 2: Normal Visual Eller - 3: No Visual Loss Facial Palsy - 4: Normal Motor Arm Right - 5: No Drift Motor Arm Left - 5: Drift Motor Leg Right - 6: No Drift Motor Leg Left - 6: No Drift Limb Ataxia - 7: Absent Sensory - 8: Normal Best Language - 9: No Aphasia Dysarthia - 10: Normal Extinction And Inattention - 11: 0 Score: Total Score: 1 Physical Exam Const: COMMON NORMALS: no acute distress, patient oriented x3 and healthy appearing HENMT: COMMON NORMALS: normocephalic and atraumatic HEAD & SCALP: normocephalic and atraumatic Eye: COMMON NORMALS: Equal, round and reactive pupils present and EOMs intact bilaterally PUPIL: Yes Equal, round and reactive pupils present Neck/C-Spine: COMMON NORMALS: full ROM and supple Chest: COMMONS NORMALS: normal inspection of the chest and normal palpation of entire chest wall Resp: COMMON NORMALS: normal respiratory effort, No retractions, No use of accessory muscles and clear to auscultation bilaterally AUSCULTATION: clear to auscultation bilaterally Cardio: COMMON NORMALS: regular rate, regular rhythm and No murmurs present (Cardio) RATE: regular rate RHYTHM: regular rhythm GI: COMMON NORMALS: Normal to inspection, nondistended, normoactive bowel sounds present, Soft to palpation, non-tender and no masses PALPATION: Yes Soft to palpation Extremity: COMMON NORMALS: normal to inspection and full ROM NARRATIVE EXTREMITY EXAM: Slight weakness to the left arm. Does have a wrist drop at the left wrist and unable to move her fingers or extend her left hand. She is able to raise her left arm up above her head. Most the weakness is at the hand Neuro: COMMON NORMALS: patient oriented x3, moves all extremities and no focal motor deficits Psych: COMMON NORMALS: mental status grossly normal, Normal thought process present and cooperative THOUGHT PROCESS: Normal thought process present Skin: COMMON NORMALS: no rashes or lesions noted and no wounds GENERAL SKIN EXAM: no rashes or lesions noted Course Reevaluation(s): Reevaluation #1: Patient is evaluated by teleneurologist at [facility]. Patient has some weakness in her bicep and some numbness above her elbow as well so the neurologist I spoke to her and patient altogether and neurologist concerned it could be a stroke because it does not completely fit a radial nerve palsy. Patient states that the dysfunction to be debilitating and she would like to receive the TPA. Neurologist did went over all the risks and benefits and patient is consented to TPA and will start TPA infusion at this time. Time: 23:24 Vital Signs: Vital signs: Vital Signs Temperature 98.0 F 11/11/20 22:40 Pulse Rate 67 11/11/20 22:40 Respiratory Rate 20 H 11/11/20 22:40 Blood Pressure 182/89 11/11/20 22:40 Pulse Oximetry 97 11/11/20 22:40 MDM - Neuro Symptoms/Deficit MDM Narrative: Medical decision making narrative: Patient presents here with left arm weakness. Patient was evaluated by teleneurology who recommended TPA. I and neurologist spoke about the risk and benefits the patient she agreed to TPA. Patient's been stable here in the ER. Spoke to hospitalist and will admit to the ICU. Lab Data: Labs: Lab Results 11/11/20 11/11/20 11/11/20 Range/Units 22:46 22:50 22:50 WBC 6.8 (4.0-10.0) 10^3/ uL RBC 4.38 (4.1-5.3) 10^6/u L Hgb 13.4 (11.5-15.3) g/dL Hct 41.2 (37.0-47.0) % MCV 94.1 (81-99) fL MCH 30.6 (28.0-34.0) pg MCHC 32.5 (30.0-36.0) g/dL RDW 12.8 (12.1-15.1) % Plt Count 253 (130-400) 10^3/c mm MPV 9.6 (7.4-10.4) fL Neut % (Auto) 56.5 % Lymph % (Auto) 30.9 % Archule[place] % (Auto) 9.4 % Eos % (Auto) 2.8 % Baso % (Auto) 0.3 % Neut # (Auto) 3.85 (1.8-7.7) 10^3/u L Lymph # (Auto) 2.1 (0.8-4.8) 10^3/u L [place] # (Auto) 0.6 (0.2-0.9) 10^3/u L Eos # (Auto) 0.2 (0.0-0.8) 10^3/u L Baso # (Auto) 0.0 (0.0-0.1) 10^3/u L Nucleated RBC % (a uto) 0 % Nucleated RBCs # 0.0 /100WBC PT 13.30 (12.1-14.9) SECO NDS INR 0.98 (0.8-1.2) APTT 26.6 (23.9-36.7) SECO NDS Sodium (136-145) mmol/L Potassium (3.5-5.1) mmol/L Chloride (98-107) mmol/L Carbon Dioxide (22-29) mmol/L Anion Gap (5-19) BUN (8-23) mg/dL Creatinine (0.5-0.9) mg/dL GFR Calculation (90-130) mL/min Glucose (65-115) mg/dL POC Glucose 118 H (70-110) mg/dL Calculated Osmolal ity (285-295) mOsm/k g Calcium (8.5-10.5) mg/dL Total Bilirubin (0.15-1.2) mg/dL AST (0-32) U/L ALT (0-33) U/L Alkaline Phosphata se (35-105) IU/L Total Protein (6.6-8.7) g/dL Albumin (3.5-5.2) g/dL Globulin (1.3-4.6) g/dL Ethyl Alcohol (0-10) mg/dL 11/11/20 11/11/20 Range/Units 22:50 22:50 WBC (4.0-10.0) 10^3/ uL RBC (4.1-5.3) 10^6/u L Hgb (11.5-15.3) g/dL Hct (37.0-47.0) % MCV (81-99) fL MCH (28.0-34.0) pg MCHC (30.0-36.0) g/dL RDW (12.1-15.1) % Plt Count (130-400) 10^3/c mm MPV (7.4-10.4) fL Neut % (Auto) % Lymph % (Auto) % [place]ule[place] % (Auto) % Eos % (Auto) % Baso % (Auto) % Neut # (Auto) (1.8-7.7) 10^3/u L Lymph # (Auto) (0.8-4.8) 10^3/u L [place] # (Auto) (0.2-0.9) 10^3/u L Eos # (Auto) (0.0-0.8) 10^3/u L Baso # (Auto) (0.0-0.1) 10^3/u L Nucleated RBC % (a uto) % Nucleated RBCs # /100WBC PT (12.1-14.9) SECO NDS INR (0.8-1.2) APTT (23.9-36.7) SECO NDS Sodium 140 (136-145) mmol/L Potassium 3.6 (3.5-5.1) mmol/L Chloride 103 (98-107) mmol/L Carbon Dioxide 27 (22-29) mmol/L Anion Gap 13.6 (5-19) BUN 15 (8-23) mg/dL Creatinine 0.6 (0.5-0.9) mg/dL GFR Calculation 99.7 (90-130) mL/min Glucose 93 (65-115) mg/dL POC Glucose (70-110) mg/dL Calculated Osmolal ity 291 (285-295) mOsm/k g Calcium 9.0 (8.5-10.5) mg/dL Total Bilirubin 0.3 (0.15-1.2) mg/dL AST 13 (0-32) U/L ALT 18 (0-33) U/L Alkaline Phosphata se 86 (35-105) IU/L Total Protein 6.6 (6.6-8.7) g/dL Albumin 4.1 (3.5-5.2) g/dL Globulin 2.5 (1.3-4.6) g/dL Ethyl Alcohol < 10 (0-10) mg/dL Imaging Data^: CT Head: Radiologist's impression: [address] [address] [address] Scan Report Signed Patient: Mariano Summers Unit #: [id number] : 1955 Age/Sex: 65 / F ADM Date: 0 11/11/20 Loc: ER Room/Bed: Attending Dr: Ordering Provider/Ordering MD: Rowena Shah MD Date of Service: 11/11/20 Procedure(s): CT head wo con* [id number] Accession Number(s): [id number] Report Number: [id number] PROCEDURE INFORMATION: Exam: CT Head Without Contrast Exam date and time: 11/11/2020 10:45 PM Age: 65 years old Clinical indication: Weakness, extremity; Left; Patient HX: Sudden onset of lue weakness. ; Additional info: Symptoms of acute stroke TECHNIQUE: Imaging protocol: Computed tomography of the head without contrast. Radiation optimization: All CT scans at this facility use at least one of these dose optimization techniques: automated exposure control; mA and/or kV adjustment per patient size (includes targeted exams where dose is matched to clinical indication); or iterative reconstruction. Other technique: STROKE PROTOCOL was implemented. COMPARISON: No relevant prior studies available. RADIATION DOSE METRICS: Total DLP (mGy-cm): 851.15 FINDINGS: Brain: Normal. No hemorrhage. Unremarkable white matter. No mass effect. Cerebral ventricles: No ventriculomegaly. Paranasal sinuses: Visualized sinuses are unremarkable. No fluid levels. Mastoid air cells: Visualized mastoid air cells are well aerated. Bones/joints: No acute findings. Soft tissues: Unremarkable. CT/CT head wo con* [id number] IMPRESSION: No acute intracranial abnormality. ASSESSMENT: ASPECTS (Anne Stroke Program Early CT Score) is 10. Radiation Dose CTDIVOL = (mGy): DLP = 851.15 (mGy-cm) EKG Data^: EKG 1: Attestation: I personally reviewed and interpreted this EKG as follows: EKG interpretation date: 11/11/20 EKG interpretation time: 23:06 Interpretation: nsr hr [address] or t wave abnormalities qrs 97 qtc 424 Discharge Plan Discharge Prescriptions: No Action levothyroxine 100 mcg capsule 100 mcg PO DIRECTED RF: 0 escitalopram oxalate 20 mg tablet 20 mg PO DAILY RF: 0 trazodone 50 mg Tablet 25 mg PO BEDTIME RF: 0 vitamin G03-fswas acid 0.5-1 mg Tablet 2 tab PO DAILY RF: 0 docusate sodium [Stool Softener] 100 mg Capsule 300 mg PO BEDTIME RF: 0 Vitamin C 100 mg Tablet 100 mg PO DAILY RF: 0 ferrous gluconate 324 mg (38 mg iron) Tablet 324 mg PO DAILY RF: 0 aspirin 81 mg Tablet,Delayed Release (Dr/Ec) 81 mg PO DAILY RF: 0 levothyroxine [Euthyrox] 88 mcg tablet 88 mcg PO DAILY RF: 0 cholecalciferol (vitamin D3) [Vitamin D3] 25 mcg (1,000 unit) Capsule 25 mcg PO DAILY RF: 0 calcium carbonate-vitamin D3 [Calcium 600 + D(3)] 600 mg(1,500mg) -400 unit Tablet 1 tab PO DAILY RF: 0 Coding Level of Care Code ED Supervisor [employer] for Chg Fwd Exam Comprehensive
[2020-11-11 23:26] LABS: Alanine Aminotransferase 18 U/L (0-33); Albumin Level 4.1 g/dL (3.5-5.2); Alkaline Phosphatase 86 IU/L (35-105); Anion Gap 13.6 (5-19); Aspartate Amino Transferase 13 U/L (0-32); Blood Urea Nitrogen 15 mg/dL (8-23); Carbon Dioxide 27 mmol/L (22-29); Chloride 103 mmol/L (98-107); Creatinine Clr Calc Pharmacy 63.1872; Globulin 2.5 g/dL (1.3-4.6); Glomerular Filtration Rate 99.7 mL/min (90-130); Glucose 93 mg/dL (65-115); Osmolality Calculated 291 mOsm/kg (285-295); Potassium 3.6 mmol/L (3.5-5.1); Sodium 140 mmol/L (136-145); Total Bilirubin 0.3 mg/dL (0.15-1.2); Total Protein 6.6 g/dL (6.6-8.7)
[2020-11-11 23:30] LABS: Alcohol Level < 10 mg/dL (0-10)
[2020-11-11 23:32] LABS: INR 0.98 (0.8-1.2)
[2020-11-11 23:33] LABS: Partial Thromboplastin Time 26.6 SECONDS (23.9-36.7)
[2020-11-12] VITALS (41 sets, daily range): BP systolic 124–175; BP diastolic 50–104; PULSE 63–84; RESP 4–31; TEMP 36.7–37; O2SAT 90–97
--- NOTE | 2020-11-12 03:02 | PM.HP ---
Providers/Chief Complaint Admitting Physician: Anna Griffin MD Primary Care Provider: Abhay Chamorro MD Chief Complaint: L ARM NUMBNESS, BEGAN @ 1 HR AGO History of Present Illness Mariano Summers is a 65 year old female who presented to the emergency room with chief complaint of left upper extremity weakness, heaviness and inability to move it. She had gone to sleep around 930 and woke up not too much later with the symptoms. She had no other neurological complaints to speak of. Denied any left lower extremity weakness or paresthesias. Denied any difficulty walking. Had difficulty utilizing her left hand. Denied any numbness anywhere along the left side. No vision or speech changes. She has never had anything like this before. She had been lying on her left side with her arm up underneath the pillow but sleeps like that normally. CT of the head did not show any acute abnormalities. Patient was seen by neurology at [facility] who recommended TPA. Initial NIH score was 1. TPA was administered and since that time she does have improvement in the sensation in her left arm but it is not completely back to normal. Denies any history of hypertension, diabetes or prior TIA/strokes. No family history of strokes. She has a family member not biologically related to her who has had a stroke in the past. Her children were cognizant of the importance of getting her to the hospital as quickly as possible because of this. She does not smoke, quit more than 15 years ago. She takes aspirin daily. Review of Systems Const: Denies: fever(s) or chills Eyes: Denies: change in vision ENMT: Denies: throat pain or nasal congestion Card: Denies: chest pain, palpitations or edema Resp: Denies: dyspnea, productive cough or non-productive cough GI: Denies: abdominal pain, nausea, vomiting, diarrhea, constipation, hematochezia or melena : Denies: difficulty voiding or hematuria Musc: Reports: extremity pain (Chronic right knee difficulty with plan to replace) and joint pain (Right shoulder has been bothering her lately due to some bursitis) Skin/Breast: Denies: rash or sores Neuro: Reports: numbness in extremities (Left upper extremity primarily below the elbow) and weakness in extremities (Left upper extremity distally); Denies: headache(s) or difficulty walking Psych: Denies: anxiety or depression Wilfredo/Lymph: Denies: easy bruising or easy bleeding Medications/Allergies Home Medications Medication Instructions Recorded Confirmed Last Taken Type escitalopram oxalate 20 mg tablet 20 mg PO DAILY 06/16/19 08/08/20 08/08/20 History levothyroxine 100 mcg capsule 100 mcg PO DIRECTED 06/16/19 08/09/20 08/03/20 History docusate sodium [Stool Softener] 300 mg PO BEDTIME 01/02/20 08/08/20 08/08/20 History trazodone 25 mg PO BEDTIME 01/02/20 08/08/20 08/08/20 History vitamin K30-ssnvp acid 2 tab PO DAILY 01/02/20 08/08/20 08/08/20 History Vitamin C 100 mg PO DAILY 08/06/20 08/08/20 08/08/20 History ferrous gluconate 324 mg PO DAILY 08/06/20 08/08/20 08/08/20 History aspirin 81 mg PO DAILY 08/08/20 08/08/20 08/07/20 History calcium carbonate-vitamin D3 1 tab PO DAILY 08/08/20 08/08/20 08/08/20 History [Calcium 600 + D(3)] cholecalciferol (vitamin D3) 25 mcg PO DAILY 08/08/20 08/08/20 08/08/20 History [Vitamin D3] levothyroxine [Euthyrox] 88 mcg PO DAILY 08/08/20 08/09/20 08/09/20 History Allergies Allergy/AdvReac Type Severity Reaction Status Date / Time Sulfa (Sulfonamide Allergy algy-rash Verified 05/14/20 15:12 Antibiotics) PFSH Acute PFSH: Medical History (Updated 11/12/20 @ 04:53 by Anna Griffin MD) Borderline hyperlipidemia COVID-19 vaccine administered Hypothyroidism Osteoarthritis Primary osteoarthritis of right knee Surgical History (Updated 11/12/20 @ 04:52 by Anna Griffin MD) History of arthroscopy of right knee History of hysterectomy History of tubal ligation Hx of cholecystectomy Status post left knee replacement Family History Denies family history of Diabetes CAD (coronary artery disease) Clotting disorder Dementia Hyperlipidemia Psychiatric illness Chronic kidney disease (CKD) Suicide Anesthesia complication Bleeding disorder Family history of premature coronary artery disease Lung disease Cancer Hypertension Stroke Social History (Updated 11/12/20 @ 04:53 by Anna Griffin MD) Smoking and tobacco status: former smoker Quit status (tobacco): has quit using tobacco Former quit date comment: More than 15 years ago Alcohol intake: never Substance/Drug Use: never Household members: family Vitals/I&O/Wt Last Vital Signs Temp 98.0 F 11/12/20 02:02 Pulse 71 11/12/20 02:02 Resp 14 11/12/20 02:02 BP 138/76 11/12/20 02:02 Pulse Ox 94 11/12/20 02:02 11/11/20 11/11/20 11/12/20 14:59 22:59 06:59 Intake Total 66.3 / 66.3 Balance 66.3 / 66.3 Weight last 48 hrs Weight 68.039 kg Physical Exam Narrative: EXAM NARRATIVE: Constitutional: Awake and alert, cooperative, able to provide history HEENT: Normocephalic, atraumatic, pupils are equally reactive, extraocular movements are intact, nasopharynx is clear, oropharynx with poor dentition but otherwise clear, mucous membranes moist Neck: Supple Respiratory: Clear to auscultation bilaterally without any rales rhonchi or wheezes noted Cardiovascular: Regular rhythm, no murmurs, no carotid bruits Abdomen: Soft, nontender, nondistended, positive bowel sounds : Deferred Extremities: No pitting edema, scarring from prior left knee surgery noted Skin: No acute rashes or bruises Neuro: Face symmetric, speech clear, has a drift primarily of her left hand rather than of the left arm, handgrip is weaker on the left than the right but strength is equal proximally, equal strength both lower extremities, toes are downgoing, DTRs are equal bilaterally Psych: Normal affect Data : 11/11/20 22:50 11/11/20 22:50 A&P Assessment and plan (1) Cerebrovascular accident: Involving left upper extremity, status post TPA Status: Acute (2) Hypothyroidism: Chronically on levothyroxine Status: Chronic (3) Borderline hyperlipidemia: By patient's report, not on any hyperlipidemic agents Status: Chronic Additional A&P Information Inpatient admission secondary to TPA administration Serial neuro exams Usual post TPA monitoring Check lipid panel and A1c Statin therapy Initiate aspirin plus Plavix 24 hours post TPA, had previously been on aspirin 81 mg daily Check echocardiogram and carotid ultrasound Neurology at [place] recommended an MRI of the head which I have requested PT/OT/speech Bedside swallowing evaluation without obvious abnormalities so will initiate low-cholesterol diet Check urinalysis SCDs for DVT prophylaxis; pharmacological DVT prophylaxis contraindicated in the setting of TPA administration Supportive care otherwise Plans were discussed with patient and she was given opportunity to ask questions Anticipate discharge home Full code Attestations Medical Necessity Statement*: Anticipated stay greater than 2 midnights in a patient presenting late in the day with stroke symptoms now status post TPA. Will require post TPA monitoring, further neurological evaluation and other work-up as described. Coding Level of Care Code Acute Reliability Engineer for Chg Fwd Diagnoses Cerebrovascular accident I63.9 Hypothyroidism E03.9 Borderline hyperlipidemia E78.5
[2020-11-12 04:56] LABS: Add Urine Microscopic? NO; Charge for UA Resulting for Rev
[2020-11-12 05:24] LABS: Bilirubin Urine Neg (Negative); Blood Urine Neg (Negative); Glucose Urine UA Norm (Normal); Ketones Urine Negative (Negative); Leukocyte Esterase Urine Negative (Negative); Nitrate Urine Negative (Negative); Protein Urine Neg (Negative); Specific Gravity, Urine 1.005 (1.005-1.030); Urine Appearance Clear (CLEAR); Urine Color Straw (Yellow); Urobilinogen Urine Norm (Negative); pH Urine 7 (5-7)
[2020-11-12 05:42] LABS: Estmated Average Glucose 103; Hemoglobin A1C 5.2 % (4.0-6.0)
[2020-11-12 05:43] LABS: Chol HDL Ratio 4.75 mg/dL (0.0-4.40); Cholesterol 171 mg/dL (0-200); HDL Cholesterol 36 mg/dL (60-100); LDL Cholesterol Calculated 111 mg/dL (50-129); LDL HDL Ratio 3.08 RATIO (0.00-3.22); Thyroid Stimulating Hormone 5.93 uIU/mL (0.27-4.20); Triglycerides 120 mg/dL (0-150)
--- NOTE | 2020-11-12 06:38 | PC.NURSE ---
Shift Summary Patient arrived from the ED at 0315, she is alert and oriented vitals all stable, NIH of 1 upon my assessment. Patient voided 950, and is getting q30 neuro and vital checks to monitor for bleeding in the brain. Patient is appropriate and cooperative. Patient passed her swallow eval and has a regular low cholesterol diet.
--- NOTE | 2020-11-12 08:46 | PC.OT ---
OT NOTE: ORDERS RECEIVED. PATIENT RECEIVED TPA AT 2300 HOUR. WILL HOLD PER PROTOCOL AND EVALUATE TOMORROW.
--- NOTE | 2020-11-12 09:43 | PC.CHAP ---
Pastoral Care Encounter/Spiritual Assessment Type of Contact [] Declined directional drill operator visit [] Patient/Family/Request visit [] Outpatient visit [] Follow-up visit [] Physician referral [] Code/Alert [x] Routine visit [] Staff referral [] Actively dying [] Patient sleeping [] Family support [] [] Out of room [] Palliative care [] [x] Receiving care in room [] Pre-surgical visit [] Trauma [] Long length of stay [x] ICU visit [] Other: Relational/Emotional Strength [] Patient feels connected with others/family/visitors/staff [] Distress [] Loneliness/isolation [] Abandonment Spirituality of Patient [] Person of Jeanne [] Attends Temple of their Jeanne [] Believes in Prayer [] Reads Bible or Congregation materials [] There are Spiritual issues to be addressed Energy Sales Broker Interventions [x] Prayer [] Active listening [] Non-anxious presence [] Spiritual/emotional support [] Crisis/trauma care [] Spiritual counseling [] Bereavement support [] Provided bereavement packet [] Provided Bible/devotional materials [] Provided toy/stuffed animal, coloring book to patient or family member [] Provided Communion [] Anointing/Freedom [] Salvation [x] Completed spiritual assessment [] Other: Impact on Illness or Injury [] Angry [] Fearful [] Anxious [] Often cries [] Exhaustion [] Unable to work [] Unable to attend buddhism [] Unable to walk/stand [] Unable to read [] Unable to drive [] Unable to eat/drink [] Unable to sleep [] Unable to be with family [] Patient intubated [] Other: Summary Time spent with patient
--- NOTE | 2020-11-12 14:46 | PC.NUTR ---
Nutrition consult for stroke dx completed. Provided nutrition education on Stroke Nutrition Therapy. Pt listened attentively, but did not seem very interested in making dietary changes at this time. Per pt request, will order meat cut into bite-sized pieces at meals. See RD assessment for further details.
--- NOTE | 2020-11-12 15:15 | PC.PT ---
PT eval attempted. Hold today due to TPA.
--- NOTE | 2020-11-12 16:29 | PM.PN ---
Subjective Subjective: Interval history: Patient was seen and examined this morning, overall she is doing better. Still has weakness in her left hand. Blood pressure currently at goal (< 180/105) Vitals/I&O/Wt Last Vital Signs Temp 98.6 F 11/12/20 11:00 Pulse 78 11/12/20 14:33 Resp 16 11/12/20 14:30 BP 149/83 11/12/20 14:30 Pulse Ox 90 11/12/20 14:30 11/12/20 11/12/20 11/12/20 06:59 14:59 22:59 Intake Total 66.3 / 66.3 500 / 500 Output Total 950 / 950 450 / 450 Balance -883.7 / -883.7 50 / 50 Weight last 48 hrs Weight 68.039 kg Physical Exam Const: COMMON NORMALS: patient oriented x3 HENMT: COMMON NORMALS: normocephalic and atraumatic HEAD & SCALP: normocephalic and atraumatic Chest: CHEST: Yes Symmetrical chest wall rise Resp: COMMON NORMALS: clear to auscultation bilaterally EFFORT & INSPECTION: Yes symmetric chest movement AUSCULTATION: clear to auscultation bilaterally Cardio: COMMON NORMALS: regular rate, regular rhythm, S1 normal heart sound present, S2 normal heart sound present, No gallops present (Cardio), No murmurs present (Cardio), No rub (Cardio) and Peripheral pulses 2+ throughout RATE: regular rate RHYTHM: regular rhythm HEART SOUNDS: S1 normal heart sound present and S2 normal heart sound present PERIPHERAL PULSES: Peripheral pulses 2+ throughout GI: COMMON NORMALS: Normal to inspection, nondistended, normoactive bowel sounds present, Soft to palpation, non-tender, No hepatosplenomegaly present and no masses AUSCULTATION: Yes normoactive bowel sounds PALPATION: Yes Soft to palpation and Yes No hepatosplenomegaly present RECTAL EXAM: deferred Extremity: COMMON NORMALS: no clubbing, cyanosis or edema and no pedal edema Neuro: COMMON NORMALS: patient oriented x3 OTHER: Lt hand weak polysomnography technician, lt u/e poor 4/5 sensations intact, no facial asymmetry, power in both lower extremities intact. Data : 11/11/20 22:50 11/11/20 22:50 A&P Assessment and plan (1) Cerebrovascular accident: Involving left upper extremity, status post TPA Echocardiogram carotid ultrasound MRI brain with and without contrast Telemetry monitoring lipid panel HbA1c Serial neuro exams aspirin plus Plavix 24 hours post TPA PT/OT/speech Blood pressure currently at goal (< 180/105) Status: Acute (2) Hypothyroidism: Chronically on levothyroxine Status: Chronic (3) Borderline hyperlipidemia: By patient's report, not on any hyperlipidemic agents Status: Chronic Additional A&P Information SCDs for DVT prophylaxis; Full code Attestations Medical Necessity Statement*: Patient needs to be in the hospital for management of acute CVA. Coding Level of Care Code Acute Leather Cartridge Belt Maker for Chg Fwd Diagnoses Cerebrovascular accident I63.9 Hypothyroidism E03.9 Borderline hyperlipidemia E78.5
--- NOTE | 2020-11-12 20:24 | PC.NURSE ---
Scd equipment unavailable at this time. Nurse to reassess.
[2020-11-12] MEDS: atorvastatin 40 mg Tablet 20 MG PO (21:38)
[2020-11-13] VITALS (11 sets, daily range): BP systolic 112–152; BP diastolic 55–79; PULSE 65–79; RESP 13–22; TEMP 36.8–36.9; O2SAT 92–97
--- NOTE | 2020-11-13 03:15 | PC.NURSE ---
Inpatient transfer note Pt transferred to [facility] room 254-1 via w/c. Report given to NATALYA Coyle. Bedside neuro check completed with receiving nurse present.
[2020-11-13 05:15] LABS: Basophils % 0.6 %; Eosinophils # 0.2 10^3/uL (0.0-0.8); Hematocrit 45.2 % (37.0-47.0); Hemoglobin 14.4 g/dL (11.5-15.3); Lymphocytes # 1.5 10^3/uL (0.8-4.8); Lymphocytes % 20.2 %; Mean Corpuscular HGB Conc 31.9 g/dL (30.0-36.0); Mean Corpuscular Hemoglobin 30.4 pg (28.0-34.0); Mean Corpuscular Volume 95.6 fL (81-99); Mean Platelet Volume 9.8 fL (7.4-10.4); Monocytes # 0.6 10^3/uL (0.2-0.9); Monocytes % 7.7 %; Neutrophils # 4.96 10^3/uL (1.8-7.7); Neutrophils % 68.2 %; Nucleated Red Blood Cells % 0 %; Platelet Count 262 10^3/cmm (130-400); Red Blood Count 4.73 10^6/uL (4.1-5.3); Red Cell Distribution Width 12.9 % (12.1-15.1); White Blood Count 7.3 10^3/uL (4.0-10.0)
[2020-11-13 05:29] LABS: Anion Gap 10.9 (5-19); Blood Urea Nitrogen 14 mg/dL (8-23); Calcium 8.8 mg/dL (8.5-10.5); Carbon Dioxide 27 mmol/L (22-29); Chloride 104 mmol/L (98-107); Glomerular Filtration Rate 159.2 mL/min (90-130); Glucose 96 mg/dL (65-115); Osmolality Calculated 286 mOsm/kg (285-295); Potassium 3.9 mmol/L (3.5-5.1); Sodium 138 mmol/L (136-145)
[2020-11-13 05:31] LABS: Creatinine Clr Calc Pharmacy 63.1872
--- NOTE | 2020-11-13 06:00 | USCV_ITS ---
Mariano Summers Age: 65 Gender: F : 1955 Exam Date: 11/13/2020 06:24 Ordering Phys: Anna Griffin MD Technologist: Bushra Guthrie Exam Location: [facility] [place] Indication: CVA Risk Factors: Previous Vascular Surgery: Right Brachial BP: / Left Brachial BP: / Right Left Velocity (cm/s) Spectral Plaque Velocity (cm/s) Spectral Plaque Syst/Diast Broadening Syst/Diast Broadening 108.80/25.30 Prox CCA 85.70 / 17.00 99.20/ 24.30 Mid CCA 96.70 / 22.90 100.60/29.60 Distal CCA 98.10 / 27.60 74.10/ 26.90 Prox ICA 36.10 / 13.80 86.30/ 35.90 Mid ICA 103.00/ 30.80 156.30/49.40 Distal ICA 86.00 / 21.20 106.30 ECA 94.80 1.44 ICA/CCA 1.05 Antegrade Vertebral Antegrade 57.30/ 16.80 cm/s 32.50/ 8.50 cm/s Tri Subclavian Tri 129.0 101.8 0 0 FINDINGS Comparison: none available. No significant elevation of systolic or diastolic velocities. Waveforms are normal. No significant amount of calcified plaque or intimal thickening identified. CONCLUSIONS Normal carotid doppler ultrasound. Dr. Liz Asher DO (Electronically Signed) Final Date: 13 November 2020 08:37 S
--- NOTE | 2020-11-13 06:00 | USCV_ITS ---
Mariano Summers Age: 65 Gender: F : 1955 Exam Date: 11/13/2020 06:47 Ordering Phys: Anna Griffin MD Technologist: Bushra Guthrie Exam Location: [facility] [place] Indication: CVA BP: 145 / 78 HR: 68 Rhythm: Sinus Technical Quality: Adequate MEASUREMENTS (Male / Female) Normal Values 2D ECHO LV Diastolic Diameter PLAX 4.6 cm 4.2 - 5.9 / 3.9 - 5.3 cm LV Systolic Diameter PLAX 3.0 cm IVS Diastolic Thickness 1.6 cm 0.6 - 1.0 / 0.6 - 0.9 cm IVS Systolic Thickness 2.3 cm LVPW Diastolic Thickness 1.1 cm 0.6 - 1.0 / 0.6 - 0.9 cm LVPW Systolic Thickness 2.1 cm LVOT Diameter 2.0 cm LV Ejection Fraction 2D Teich 63.1 % LV Ejection Fraction MOD 2C 49.6 % LV Ejection Fraction 2C AL 49.9 % LA Diameter 3.2 cm LA Width 2.8 cm LA Height 3.5 cm RA Width 2.9 cm RA Height 4.0 cm Aorta at Sinotubular Diameter 2.9 cm M-MODE LV Diastolic Diameter MM 4.8 cm 4.2 - 5.9 / 3.9 - 5.3 cm LV Systolic Diameter MM 3.0 cm LV Ejection Fraction MM Teich 67.2 % IVS Diastolic Thickness MM 1.4 cm 0.6 - 1.0 / 0.6 - 0.9 cm IVS Systolic Thickness MM 1.7 cm LVPW Diastolic Thickness MM 1.6 cm 0.6 - 1.0 / 0.6 - 0.9 cm LVPW Systolic Thickness MM 1.9 cm Aortic Annulus Diameter 3.4 cm LA Ao Ratio MM 1.1 MV E Point Septal Separation 0.5 cm DOPPLER AV Peak Velocity 93.0 cm/s LVOT Peak Velocity 58.0 cm/s AV Area Cont Eq vti 1.8 cm squared AV Area Cont Eq pk 2.0 cm squared MV Peak Velocity 80.0 cm/s MV Area PHT 3.4 cm squared Mitral E to A Ratio 0.8 MV E' Velocity 32.0 cm/s Mitral E to MV E' Ratio 7.3 Mitral E to LV E' Lateral Ratio 7.3 Mitral E to LV E' Septal Ratio 7.3 TV Peak E Velocity 42.0 cm/s Right Atrial Pressure 3.0 mmHg PV Peak Velocity 66.0 cm/s RV Acceleration Time 0.1 s RV Ejection Time 0.3 s RV AcT/ET 0.2 FINDINGS Left Ventricle Normal left ventricular size, systolic function and wall thickness, with no regional wall motion abnormalities. Left ventricular ejection fraction is estimated at 65 %. Normal diastolic function. Right Ventricle Normal right ventricular size and systolic function. RVSP could not be calculated due to incomplete tricuspid regurgitation velocity profile. Right Atrium Normal right atrial size. Right atrial pressure estimated at 3 mmHg. Left Atrium Normal left atrial size. Mitral Valve Structurally normal mitral valve. No mitral valve stenosis. No mitral valve regurgitation. Aortic Valve Structurally normal trileaflet aortic valve. No aortic valve stenosis. No aortic valve regurgitation. Tricuspid Valve Structurally normal tricuspid valve. Trace tricuspid valve regurgitation. Pulmonic Valve Pulmonic valve not well visualized. No pulmonary valve stenosis. No pulmonary valve regurgitation. Pericardium No pericardial effusion. Aorta Normal size aortic root and proximal ascending aorta. Normal- sized inferior vena cava with normal respiratory variation. CONCLUSIONS 1. Normal left ventricular size, systolic function and wall thickness, with no regional wall motion abnormalities. Left ventricular ejection fraction is estimated at 65 %. Normal diastolic function. 2. Normal right ventricular size and systolic function. 3. No significant valvular abnormality. 4. No prior similar studies to compare. 5. No evidence of cardioembolic source of stroke based on the study. However, left atrial appendage not well visualized. KEMAL is recommended if clinically indicated. Kecia Mcgarry MD (Electronically Signed) Final Date: 13 November 2020 14:43 S
--- NOTE | 2020-11-13 09:00 | CT_ITS ---
WS: [id number] CT HEAD NONCONTRAST HISTORY: s/p tpa for cva TECHNIQUE: Contiguous axial imaging performed through the brain in 2.5 mm imaging. Bone and soft tiss ue windows. Sagittal and coronal reformats reviewed. All CT scans at [facility] use at le ast one of these dose optimization techniques: automated exposure control; mA and/or kV adjustment pe r patient size (includes targeted exams where dose is matched to clinical indication); or iterative r econstruction. DLP: 847.94 mGy.cm COMPARISON: 11/11/2020 No acute intracranial hemorrhage, midline shift or mass effect. Mild atrophy and mild chronic microvascular ischemic disease. No focal area of developing or subacute infarct is appreciated. Ventricles: Normal size with no hydrocephalus. No inferior displacement of cerebellar tonsils. Paranasal sinuses: As visualized are clear. Mastoid air cells: Cerumen in the external auditory canals bilaterally. Mastoid air cells are well-ae rated. Calvarium and scalp: Skull is intact with no soft tissue edema or swelling. CT/CT head wo con* [id number] IMPRESSION: 1. No acute intracranial hemorrhage or edema. 2. Mild chronic microvascular ischemic disease. No interval development of a s ubacute ischemic defect.
[2020-11-13] MEDS: aspirin 81 mg EC Tablet PO (09:21)
[2020-11-13] MEDS: clopidogrel 75 mg Tablet PO (09:21)
--- NOTE | 2020-11-13 10:40 | PC.CHAP ---
Pastoral Care Encounter/Spiritual Assessment Type of Contact [] Declined professional housing consultant visit [] Patient/Family/Request visit [] Outpatient visit [] Follow-up visit [] Physician referral [] Code/Alert [x] Routine visit [] Staff referral [] Actively dying [] Patient sleeping [] Family support [] [] Out of room [] Palliative care [] [] Receiving care in room [] Pre-surgical visit [] Trauma [] Long length of stay [] ICU visit [] Other: Relational/Emotional Strength [x] Patient feels connected with others/family/visitors/staff [] Distress [] Loneliness/isolation [] Abandonment Spirituality of Patient [x] Person of Jeanne [] Attends Alevism of their Jeanne [] Believes in Prayer [] Reads Bible or Moravian materials [] There are Spiritual issues to be addressed Nylon Machine Operator Interventions [x] Prayer [x] Active listening [x] Non-anxious presence [x] Spiritual/emotional support [] Crisis/trauma care [] Spiritual counseling [] Bereavement support [] Provided bereavement packet [] Provided Bible/devotional materials [] Provided toy/stuffed animal, coloring book to patient or family member [] Provided Communion [] Anointing/[place] [] Salvation [x] Completed spiritual assessment [] Other: Impact on Illness or Injury [] Angry [] Fearful [] Anxious [] Often cries [] Exhaustion [] Unable to work [] Unable to attend scientology [] Unable to walk/stand [] Unable to read [] Unable to drive [] Unable to eat/drink [] Unable to sleep [] Unable to be with family [] Patient intubated [] Other: Summary patient feeling much better but still weak Time spent with patient 15 min
--- NOTE | 2020-11-13 11:15 | MR_ITS ---
WS: [id number] MRI BRAIN WITH AND WITHOUT CONTRAST HISTORY: CVA, POST TPA COMPARISON: Head CT 11/13/2020 TECHNIQUE: Multiplanar imaging performed through the brain with MultiHance 15 ml's IV. There are a few small scattered lacunar infarcts which are positive on the diffusion weighted sequenc es in the RIGHT frontoparietal cortex. There are a few scattered diffusion weighted abnormalities in the posterior RIGHT frontal and anterior adjacent parietal cortex. No associated hemorrhage or signif icant edema. No additional diffusion-weighted abnormalities. No hemorrhage. There are a few scattered hyperintense signal abnormalities in the subcortical white m atter bilaterally from prior ischemic disease. Ventricles and extra-axial spaces are normal. Clivus and pituitary gland are normal. Visualized posterior fossa and brainstem are also normal. Postcontrast images are negative for masses or vascular malformations. Dural venous sinuses are normal. Paranasal sinuses: Well aerated with no significant disease. Mastoid air cells: Normal. Calvarium and scalp: Normal. MR/MR head wo/w con [id number] IMPRESSION: 1. Small acute lacunar infarcts scattered in the RIGHT frontoparietal cortex. No hemorrhage. 2. Otherwise mild chronic microvascular ischemic disease.
[2020-11-13] MEDS: gadobenate dimeglumine 20 mL vial IV (14:34)
--- NOTE | 2020-11-13 15:45 | P.DS_ITS ---
Discharge Providers Date of Admission: 11/12/20 02:16 Date of Discharge: November 13, 2020 Attending Provider at Admission: Anna Griffin MD Attending Provider at Discharge: Jose Rubin MD Primary Care Provider: Abhay Chamorro MD Diagnoses at Discharge Discharge Diagnosis (1) Cerebrovascular accident: Status: Acute (2) Hypothyroidism: Status: Chronic (3) Borderline hyperlipidemia: Status: Chronic Reason for Visit Reason for Visit: L ARM NUMBNESS, BEGAN @ 1 HR AGO Hospital Course Hospital Course 65 year old female who presented to the emergency room with chief complaint of left upper extremity weakness, heaviness and inability to move it,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 She had no other neurological complaints . No left lower extremity weakness or paresthesias. Denied any difficulty walking.Denied any numbness anywhere along the left side. No vision or speech changes.CT of the head did not show any acute abnormalities.Patient was seen by neurology at [facility] who recommended TPA.She received TPA in the ER, and was admitted for the management of acute CVA. 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 MR head wo/w con: Small acute lacunar infarcts scattered in the RIGHT frontoparietal cortex. No hemorrhage.Otherwise mild chronic microvascular ischemic disease.CV carotid duplex BI:Normal carotid doppler ultrasound. 2D echo: Normal left ventricular size, systolic function and wall thickness, with no regional wall motion abnormalities. Left ventricular ejection fraction is estimated at 65 %. Normal diastolic function. Normal right ventricular size and systolic function. No significant valvular abnormality. No prior similar studies to compare. No evidence of cardioembolic source of stroke based on the.No arrhythmia was detected on telemetry.She was started on amlodipine 5 mg p.o. daily as her blood pressure was on the higher side. 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 She has been given 1 week of from her work, physical therapy and occupational therapy has provided them the instructions.She will follow-up with her primary care physician in 1 week time to reassess the need to have work of. Patient overall responded well to the above medical management and is being discharged in stable condition to home she will follow Dr. Rosales as an outpatient. Physical Exam Const: COMMON NORMALS: patient oriented x3 HENMT: COMMON NORMALS: normocephalic and atraumatic HEAD & SCALP: normocephalic and atraumatic Chest: CHEST: Yes Symmetrical chest wall rise Resp: COMMON NORMALS: clear to auscultation bilaterally EFFORT & INSPECTION: Yes symmetric chest movement AUSCULTATION: clear to auscultation bilaterally Cardio: COMMON NORMALS: regular rate, regular rhythm, S1 normal heart sound present, S2 normal heart sound present, No gallops present (Cardio), No murmurs present (Cardio), No rub (Cardio) and Peripheral pulses 2+ throughout RATE: regular rate RHYTHM: regular rhythm HEART SOUNDS: S1 normal heart sound present and S2 normal heart sound present PERIPHERAL PULSES: Peripheral p ulses 2+ throughout GI: COMMON NORMALS: Normal to inspection, nondistended, normoactive bowel sounds present, Soft to palpation, non-tender, No hepatosplenomegaly present and no masses AUSCULTATION: Yes normoactive bowel sounds PALPATION: Yes Soft to palpation and Yes No hepatosplenomegaly present RECTAL EXAM: deferred Extremity: COMMON NORMALS: no clubbing, cyanosis or edema and no pedal edema Neuro: COMMON NORMALS: patient oriented x3 OTHER: Lt hand weak 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 Discharge Data Data Completed and Pending: Completed Studies During Hospitalization Category Date Time Status CT head wo con* [id number] Routine Cat Scan 11/13/20 09:[address] head wo con* 7 0450 Stat Cat Scan 11/11/20 22:45 Completed XR chest 1V magda ble [id number] Stat Exams 11/11/20 22:44 Completed MR head wo/w con [id number] Urgent MRI 11/13/20 11:15 Completed CV carotid duplex BI* [id number] Routine Ultrasound 11/13/20 06:00 Completed CV. echo complete * [id number] Routine Ultrasound 11/13/20 06:00 Completed Labs from last 24 hours 11/13/20 11/13/20 04:53 04:53 WBC 7.3 RBC 4.73 Hgb 14.4 Hct 45.2 MCV 95.6 MCH 30.4 MCHC 31.9 RDW 12.9 Plt Count 262 MPV 9.8 Neut % (Auto) 68.2 Lymph % (Auto) 20.2 [place] % (Auto) 7.7 Eos % (Auto) 3.0 Baso % (Auto) 0.6 Neut # (Auto) 4.96 Lymph # (Auto) 1.5 [place] # (Auto) 0.6 Eos # (Auto) 0.2 Baso # (Auto) 0.0 Nucleated RBC % (a uto) 0 Nucleated RBCs # 0.0 Sodium 138 Potassium 3.9 Chloride 104 Carbon Dioxide 27 Anion Gap 10.9 BUN 14 Creatinine 0.4 L GFR Calculation 159.2 H Glucose 96 Calculated Osmolal ity 286 Calcium 8.8 Vitals: Last Vital Signs Temp 98.4 F 11/13/20 15:26 Pulse 72 11/13/20 15:26 Resp 20 H 11/13/20 15:26 BP 152/75 11/13/20 15:26 Pulse Ox 97 11/13/20 15:26 Discharge Plan Discharge Patient Disposition: Home Condition: Stable Prescriptions: New atorvastatin 40 mg Tablet 40 mg PO BEDTIME 30 Days Qty: 30 RF: 3 clopidogrel 75 mg Tablet 75 mg PO DAILY 30 Days Qty: 30 RF: 3 amlodipine 5 mg tablet 5 mg PO DAILY Qty: 30 RF: 3 Continued levothyroxine 100 mcg capsule 100 mcg PO .ON WEDNESDAY RF: 0 escitalopram oxalate 20 mg tablet 20 mg PO QAM RF: 0 trazodone 50 mg Tablet 25 mg PO BEDTIME RF: 0 vitamin O82-schhk acid 0.5-1 mg Tablet 1 tab PO QAM RF: 0 docusate sodium [Stool Softener] 100 mg Capsule 300 mg PO BEDTIME RF: 0 ferrous gluconate 324 mg (38 mg iron) Tablet 324 mg PO BEDTIME RF: 0 aspirin 81 mg Tablet,Delayed Release (Dr/Ec) 81 mg PO QAM RF: 0 levothyroxine [Euthyrox] 88 mcg tablet 88 mcg PO .DAILY EXCEPT ON SAT RF: 0 cholecalciferol (vitamin D3) [Vitamin D3] 25 mcg (1,000 unit) Capsule 25 mcg PO QAM RF: 0 Vitamin C 1,000 mg Tablet 1,000 mg PO QAM RF: 0 calcium carbonate-vitamin D3 600 mg(1,500mg) -200 unit Tablet 1 tab PO QAM RF: 0 Benadryl 25 mg Capsule 50 mg PO BEDTIME RF: 0 fluticasone propionate 50 mcg/actuation [place],Suspension 1 spray INTRANASAL DAILY PRN (Reason: Allergy Symptoms) RF: 0 Discharge Orders: Discharge Order (Routine); Ordered 11/13/20 Ordered By: Jose Rubin Referrals: Cori Rosales MD [Physician] - 12/02/20 8:00 am Abhay Chamorro MD [Primary Care Provider] - 11/18/20 11:15 am Discharge Diet: Regular Discharge Activity: Resume usual activity Patient Instructions: Atorvastatin (By mouth), Clopidogrel (By mouth), Hypothyroidism (DC), Self Care Measures After a Stroke (DC), Hyperlipidemia (DC), Opioid Safety Discharge Attestations Time Spent in Discharge Care*: less than 30 min Specific Discharge Activities: educating patient, educating and/or supporting family/caregiver, discussing with pcp/other providers, discussing with correctional casework specialist/social workers/dc planners, documenting/other paperwork and evaluating patient/reviewing data Status at Discharge: Cognitive status at discharge: cognitively intact , Behavioral status at discharge: cooperative , Functional status at discharge: independent ambulation Overall status at discharge: patient is back to baseline Quality Metrics Clinical Quality Measures During this hospital stay, did patient experience: Stroke Contraindication to Antithrombotic: Antithrombotic prescribed Contraindication to Anticoagulation: Overlap treatment not indicated Contraindication to Statin: Statin prescribed Contraindication to tPA: tPA given Reason stroke education not provided: Stroke education provided to patient Pt Provided Written Stroke Discharge Instructions: Patient given written information Rehab services assessed: Physical therapy, Occupational therapy and Speech therapy Reason rehab assessment not done: Rehab assessment done Coding Level of Care Code Acute Chg FW DC note Exam Detailed Diagnoses Cerebrovascular accident I63.9 Hypothyroidism E03.9 Borderline hyperlipidemia E78.5
== END 2020-11-13 17:05 | disposition home or self-care (01) | DRG 63 ==
LOC: ER 11-12 00:04 → ICU 11-12 06:13 → MEDSURG 11-13 03:26
PROVIDERS: Admitting Provider Hospitalist; Emergency Provider Emergency Medicine; PCP Family Medicine; Visit Provider Internal Medicine
DX: I63.9 Cerebral infarction, unspecified (principal); G83.24 Monoplegia of upper limb affecting left nondominant side; R29.701 NIHSS score 1; Z87.891 Personal history of nicotine dependence; E78.5 Hyperlipidemia, unspecified; E03.9 Hypothyroidism, unspecified; M17.11 Unilateral primary osteoarthritis, right knee; Z96.652 Presence of left artificial knee joint; E11.22 Type 2 diabetes mellitus with diabetic chronic kidney disease; I12.9 Hypertensive chronic kidney disease with stage 1 through stage 4 chronic kidney disease, or unspecified chronic kidney disease; N18.9 Chronic kidney disease, unspecified; I25.10 Atherosclerotic heart disease of native coronary artery without angina pectoris; F03.90 Unspecified dementia, unspecified severity, without behavioral disturbance, psychotic disturbance, mood disturbance, and anxiety; Z82.49 Family history of ischemic heart disease and other diseases of the circulatory system; Z79.82 Long term (current) use of aspirin
CPT/HCPCS: 36415; 36416; 70450; 70553; 71045; 80048; 80053; 80061; 80307; 81003; 82962; 83036; 84443; 85025; 85610; 85730; 92523; 92610; 93005; 93306; 93880; 97161; 97165; 97530; A9577; J2997

== ENCOUNTER 2020-12-02 06:00 | Outpatient (RCR) | payer OTHER, MEDICARE, SELFPAY | END 2020-12-07 23:59 | disposition home or self-care (01) | LOC: SOT 06:00 | PROVIDERS: PCP Family Medicine; Referring Provider Family Medicine; Visit Provider Family Medicine | DX: I69.30 Unspecified sequelae of cerebral infarction (principal) | CPT/HCPCS: 97110; 97165 ==

== ENCOUNTER → 2020-12-05 08:03 | Outpatient (BNVA) | payer OTHER, MEDICARE, SELFPAY | PROVIDERS: PCP Family Medicine; Referring Provider Internal Medicine; Visit Provider Nurse Practitioner | DX: Z86.73 Personal history of transient ischemic attack (TIA), and cerebral infarction without residual deficits (principal); Z87.891 Personal history of nicotine dependence | CPT/HCPCS: 99204 ==

== ENCOUNTER 2020-12-08 06:00 | Outpatient (RCR) | payer OTHER, MEDICARE, SELFPAY | END 2021-01-07 23:59 | disposition home or self-care (01) | LOC: SOT 06:00 | PROVIDERS: PCP Family Medicine; Referring Provider Family Medicine; Visit Provider Family Medicine | DX: I69.30 Unspecified sequelae of cerebral infarction (principal) | CPT/HCPCS: 97110 ==

== ENCOUNTER 2021-01-10 15:25 | Outpatient (CLI) | payer OTHER, MEDICARE, SELFPAY ==
--- NOTE | 2021-01-10 15:45 | USCV_ITS ---
MarcoscassMiladmaggylars Age: 65 Gender: F : 1955 Exam Date: 01/10/2021 16:07 Ordering Phys: Abhay Chamorro MD Technologist: Ginna Rowland [place] [facility] [place]: left sided stroke BP: 122 / 72 HR: 70 Rhythm: Sinus Technical Quality: Good MEASUREMENTS (Male / Female) Normal Values 2D ECHO LV Diastolic Diameter PLAX 4.5 cm 4.2 - 5.9 / 3.9 - 5.3 cm LV Systolic Diameter PLAX 2.7 cm IVS Diastolic Thickness 1.5 cm 0.6 - 1.0 / 0.6 - 0.9 cm IVS Systolic Thickness 1.9 cm LVPW Diastolic Thickness 1.2 cm 0.6 - 1.0 / 0.6 - 0.9 cm LVPW Systolic Thickness 2.0 cm LVOT Diameter 2.2 cm LV Ejection Fraction 2D Teich 71.1 % LV Ejection Fraction MOD 2C 70.5 % LV Ejection Fraction 2C AL 72.4 % LA Diameter 3.1 cm LA Width 3.4 cm LA Height 3.5 cm RA Width 3.1 cm RA Height 3.9 cm Aorta at Sinotubular Diameter 3.5 cm DOPPLER AV Peak Velocity 104.0 cm/s LVOT Peak Velocity 73.0 cm/s AV Area Cont Eq vti 2.6 cm squared AV Area Cont Eq pk 2.6 cm squared MV Peak Velocity 121.0 cm/s MV Area PHT 3.4 cm squared Mitral E to A Ratio 1.0 MV E' Velocity 57.5 cm/s Mitral E to MV E' Ratio 10.6 Mitral E to LV E' Lateral Ratio 12.0 Mitral E to LV E' Septal Ratio 9.7 TR Peak Velocity 70.0 cm/s TR Peak Gradient 2.0 mmHg Right Atrial Pressure 3.0 mmHg Pulmonary Artery Systolic Pressu 5.0 mmHg PV Peak Velocity 61.0 cm/s RV Acceleration Time 0.1 s RV Ejection Time 0.3 s RV AcT/ET 0.2 FINDINGS Left Ventricle Normal left ventricular cavity size. Normal left ventricular systolic function. No regional wall motion abnormalities. Left ventricular ejection fraction is estimated at 65 %. Grade I/IV diastolic dysfunction (abnormal relaxation filling pattern), normal to mildly elevated filling pressures. Right Ventricle The right ventricle is normal in size and function. Right Atrium The right atrium is normal in size. Left Atrium The left atrium is normal in size. Mitral Valve Mildly thickened mitral valve. No mitral valve stenosis. Mild- moderate mitral valve regurgitation. Aortic Valve Structurally normal aortic valve without significant sclerosis or stenosis. There is no aortic regurgitation. Tricuspid Valve Mild tricuspid valve regurgitation. Pulmonic Valve Structurally normal pulmonic valve without significant stenosis. There is no pulmonic regurgitation. Pericardium Normal pericardium without effusion. Aorta Normal ascending aorta dimension. CONCLUSIONS 1-Normal left ventricular cavity size. Normal left ventricular systolic function. No regional wall motion abnormalities. Left ventricular ejection fraction is estimated at 65 %. Grade I/IV diastolic dysfunction (abnormal relaxation filling pattern), normal to mildly elevated filling pressures. 2-Structurally normal aortic valve without significant sclerosis or stenosis. There is no aortic regurgitation. 3-Mildly thickened mitral valve. No mitral valve stenosis. Mild- moderate mitral valve regurgitation. 4-Mild tricuspid valve regurgitation. 5-There is no pericardial effusion. 6-No significant change since the prior echocardiogram study of 11/13/2020. Vanessa Mantilla MD (Electronically Signed) Final Date: 10 January 2021 17:04 S
== END 2021-01-10 15:26 | disposition home or self-care (01) ==
LOC: US 15:26
PROVIDERS: PCP Family Medicine; Visit Provider Family Medicine
DX: I63.9 Cerebral infarction, unspecified (principal); I08.1 Rheumatic disorders of both mitral and tricuspid valves
CPT/HCPCS: 93306

== ENCOUNTER 2021-03-03 15:28 | Outpatient (CLI) | payer OTHER, MEDICARE, SELFPAY ==
--- NOTE | 2021-03-03 15:37 | XR_ITS ---
WS: [id number] SCREENING DEXA SCAN BUX CLINICAL INFORMATION: POST MENOPAUSAL COMPARISON: FINDINGS: The L1-L4 bone mineral density measures 1.021 g/cm2. This corresponds to a T score score of -1.3 and Z score of 0.0. Left femoral neck bone mineral density measures 0.837 g/cm2. This corresponds to a T score of -1.4 an d Z score of -0.2. Right femoral neck bone mineral density measures 0.943 g/cm2. This corresponds to a T score -0.5of an d Z score of 0.6. Mean femoral neck bone mineral density measures 0.890 g/cm2. This corresponds to a T score of -0.9 an d Z score of 0.2. XR/XR DEXA axial skeleton* [id number] IMPRESSION: Osteopenia Patient's FRAX calculated 10 year probability for major osteoporotic fracture i s 11.8 % and osteoporotic hip fracture is 2.1%.
== END 2021-03-03 15:29 | disposition home or self-care (01) ==
PROVIDERS: PCP Family Medicine; Visit Provider Family Medicine
DX: Z78.0 Asymptomatic menopausal state (principal); M85.80 Other specified disorders of bone density and structure, unspecified site
CPT/HCPCS: 77080

== ENCOUNTER → 2021-05-07 15:34 | Outpatient (BNVA) | payer OTHER, MEDICARE, SELFPAY | PROVIDERS: PCP Family Medicine; Visit Provider Podiatrist Foot & Ankle Surgery | DX: M79.671 Pain in right foot (principal); M79.672 Pain in left foot; M77.32 Calcaneal spur, left foot; M77.31 Calcaneal spur, right foot | CPT/HCPCS: 73630 ==

== ENCOUNTER 2021-05-08 14:09 | Outpatient (CLI) | payer OTHER, MEDICARE, SELFPAY | END 2021-05-08 14:10 | disposition home or self-care (01) | LOC: SPT 14:10 | PROVIDERS: PCP Family Medicine; Visit Provider Podiatrist Foot & Ankle Surgery | DX: Z46.89 Encounter for fitting and adjustment of other specified devices (principal); M79.673 Pain in unspecified foot; M72.2 Plantar fascial fibromatosis; M21.40 Flat foot [pes planus] (acquired), unspecified foot; M76.70 Peroneal tendinitis, unspecified leg | CPT/HCPCS: 97760; L3030 ==

== ENCOUNTER 2021-06-23 10:02 | Outpatient (CLI) | payer OTHER, MEDICARE, SELFPAY | END 2021-06-23 10:03 | disposition home or self-care (01) | LOC: SPT 06-24 10:04 | PROVIDERS: PCP Family Medicine; Visit Provider Podiatrist Foot & Ankle Surgery | DX: Z46.89 Encounter for fitting and adjustment of other specified devices (principal); M76.70 Peroneal tendinitis, unspecified leg; M21.40 Flat foot [pes planus] (acquired), unspecified foot; M72.2 Plantar fascial fibromatosis | CPT/HCPCS: 97760; L3030 ==

== ENCOUNTER 2021-09-15 15:20 | Outpatient (CLI) | payer BC, MEDICARE, SELFPAY ==
--- NOTE | 2021-09-15 15:35 | MM_ITS ---
WS: [id number] BILATERAL 3D TOMOSYNTHESIS DIGITAL SCREENING MAMMOGRAPHY WITH CAD CLINICAL INFORMATION: SCREENING HISTORY: Screening mammogram. No current complaints. COMPARISON: June 05, 2020 TECHNIQUE: Bilateral CC and MLO views. FINDINGS: Scattered fibroglandular densities bilaterally. No suspicious focal mass, asymmetry, calcifications, or architectural distortion. No evidence of malignancy. MM/[place] [id number] IMPRESSION: BI-RADS: 1-Negative FOLLOW UP: 1 Year Follow-up Recommend return to annual screening mammography.
== END 2021-09-15 15:21 | disposition home or self-care (01) ==
LOC: RAD 15:24
PROVIDERS: PCP Family Medicine; Visit Provider Family Medicine
DX: Z12.31 Encounter for screening mammogram for malignant neoplasm of breast (principal)
CPT/HCPCS: 77063; 77067

== ENCOUNTER 2022-07-06 17:45 | Emergency (ER) | payer MEDICARE, SELFPAY ==
[2022-07-06 17:52] VITALS: BP 179/77; PULSE 69; RESP 22; TEMP 36.3; O2SAT 98; BMI 27.6
--- NOTE | 2022-07-06 17:56 | XRR_ITS ---
PROCEDURE INFORMATION: Exam: XR Right Hip Exam date and time: 07/06/2022 6:31 PM Age: 67 years old Clinical indication: Pelvic pain; Additional info: Fall TECHNIQUE: Imaging protocol: Radiologic exam of the right hip. Views: 1 view hip with pelvis when performed. COMPARISON: CR XR hip RT 2-3V wo/w pel* [id number] 06/17/2022 8:12 AM FINDINGS: Bones/joints: Unremarkable. No acute fracture. Soft tissues: Unremarkable. XR/XR hip RT 2-3V wo/w pel* [id number] IMPRESSION: No acute findings.
--- NOTE | 2022-07-06 19:01 | ED_ITS ---
HPI - Extremity Problem General: Chief complaint: Extremity Problem,Nontraumatic Stated complaint: right hip pain Time Seen by Provider: 07/06/22 18:36 History of Present Illness: Patient is a 67-year-old female comes to the ED with right hip pain. She has some chronic right knee osteoarthritis that she is currently being worked up for by Dr. Gaxiola for potential knee replacement. She feels like she might be developing some arthritis in her right hip now. Patient has an appointment with Dr. Gaxiola this coming July 08. Today she started experiencing some pain in her right hip that radiates down into her right knee. She saw Dr. Chamorro today and he gave her 2 shots and they have not helped. She rates her pain currently a 10 out of 10. Denies any fall, injury or trauma to cause right hip pain. Associated symptoms: Deny chest pain, fever(s) or rash Review of Systems Const: Denies: fever(s), chills or fatigue Eyes: Denies: change in vision or eye discomfort ENMT: Denies: throat pain, odynophagia, nasal discharge or nasal congestion Card: Denies: chest pain, palpitations, edema, swelling of feet/ankles, dyspnea on exertion or orthopnea Resp: Denies: dyspnea, productive cough or non-productive cough GI: Denies: abdominal pain, nausea, vomiting, diarrhea, constipation or hematochezia : Denies: flank pain, dysuria or hematuria Musc: Reports: extremity pain (Right hip); Denies: neck pain, back pain or extremity swelling Skin/Breast: Denies: rash or new lesions Neuro: Denies: headache(s), numbness in extremities or weakness in extremities PFSH ED PFSH: Medical History Borderline hyperlipidemia Cerebrovascular accident COVID-19 vaccine administered Hypothyroidism Osteoarthritis Primary osteoarthritis of right knee Surgical History History of arthroscopy of right knee History of hysterectomy History of tubal ligation Hx of cholecystectomy Status post left knee replacement Family History Denies family history of Diabetes CAD (coronary artery disease) Clotting disorder Dementia Hyperlipidemia Psychiatric illness Chronic kidney disease (CKD) Suicide Anesthesia complication Bleeding disorder Family history of premature coronary artery disease Lung disease Cancer Hypertension Stroke Social History Smoking and tobacco status: former smoker Quit status (tobacco): has quit using tobacco Former quit date comment: More than 15 years ago Alcohol intake: never Household members: family Physical Exam Const: COMMON NORMALS: patient oriented x3 HENMT: COMMON NORMALS: normocephalic HEAD & SCALP: normocephalic MOUTH: Normal oral and palatal mucosa present THROAT: posterior oropharynx normal and uvula midline Neck/C-Spine: COMMON NORMALS: supple GENERAL: Yes normal visual inspection Resp: COMMON NORMALS: normal respiratory effort, No retractions, No use of accessory muscles and clear to auscultation bilaterally AUSCULTATION: clear to auscultation bilaterally Cardio: COMMON NORMALS: regular rate, regular rhythm, S1 normal heart sound present, S2 normal heart sound present, No gallops present (Cardio), No clicks present (Cardio), No murmurs present (Cardio) and Peripheral pulses 2+ throughout RATE: regular rate RHYTHM: regular rhythm HEART SOUNDS: S1 normal heart sound present and S2 normal heart sound present PERIPHERAL PULSES: Peripheral pulses 2+ throughout GI: COMMON NORMALS: Normal to inspection, nondistended, normoactive bowel sounds present, Soft to palpation, non-tender and no masses PALPATION: Yes Soft to palpation : COMMON NORMALS: Yes no CVA tenderness BLADDER/KIDNEY EXAM: Yes no CVA tenderness Back/Pelvis: COMMON NORMALS: no CVA tenderness Extremity: COMMON NORMALS: normal to inspection and full ROM Neuro: COMMON NORMALS: patient oriented x3 GAIT: Yes Normal gait present Skin: GENERAL SKIN EXAM: dry skin Course Vital Signs: Vital signs: Vital Signs Temperature 97.4 F L 07/06/22 17:52 Pulse Rate 69 07/06/22 17:52 Respiratory Rate 17 07/06/22 19:05 Blood Pressure 179/77 07/06/22 17:52 Pulse Oximetry 98 07/06/22 17:52 Oxygen Delivery Me thod 07/06/22 17:52 MDM - Extremity (Nontraumatic) Medical Decision Making Patient is a 67-year-old female comes to the ED with right hip pain. She has some chronic right knee osteoarthritis that she is currently being worked up for by Dr. Gaxiola for potential knee replacement. She feels like she might be developing some arthritis in her right hip now. Patient has an appointment with Dr. Gaxiola this coming July 08. Today she started experiencing some pain in her right hip that radiates down into her right knee. Vitals are stable. Exam of patient is benign. Right hand x-ray shows no acute findings. Patient given pain meds here in the ED and she had a relief in symptoms. She is diagnosed with right hip pain. She was stable for discharge home and told to follow-up with Dr. Gaxiola at her next scheduled appointment this coming week. Patient understood and agreed with plan. Lab Data Radiology Impressions Hip/Pelvis X-Ray 07/06/22 17:56 IMPRESSION: No acute findings. Discharge Plan Discharge Patient Disposition: Home Clinical Impression: Acute right hip pain Condition: Stable Prescriptions: No Action levothyroxine 100 mcg capsule 100 mcg PO .ON WEDNESDAY escitalopram oxalate 20 mg tablet 20 mg PO QAM meloxicam 15 mg tablet 15 mg PO DAILY 30 Days Qty: 30 6RF (DME) [employer] M[employer] Orthotics See Rx Instructions .Route .MEDSUPPLY Qty: 1 0RF Rx Instructions: As directed trazodone 50 mg Tablet 25 mg PO BEDTIME vitamin E99-lgbdj acid 0.5-1 mg Tablet 1 tab PO QAM docusate sodium [Stool Softener] 100 mg Capsule 300 mg PO BEDTIME ferrous gluconate 324 mg (38 mg iron) Tablet 324 mg PO BEDTIME aspirin 81 mg Tablet,Delayed Release (Dr/Ec) 81 mg PO QAM levothyroxine [Euthyrox] 88 mcg tablet 88 mcg PO .DAILY EXCEPT ON SAT Rx Instructions: every day but wednesday cholecalciferol (vitamin D3) [Vitamin D3] 25 mcg (1,000 unit) Capsule 25 mcg PO QAM Vitamin C 1,000 mg Tablet 1,000 mg PO QAM calcium carbonate-vitamin D3 600 mg(1,500mg) -200 unit Tablet 1 tab PO QAM Benadryl 25 mg Capsule 50 mg PO BEDTIME fluticasone propionate 50 mcg/actuation [place],Suspension 1 spray INTRANASAL DAILY PRN (Reason: Allergy Symptoms) atorvastatin 40 mg Tablet 40 mg PO BEDTIME 30 Days Qty: 30 3RF clopidogrel 75 mg Tablet 75 mg PO DAILY 30 Days Qty: 30 3RF amlodipine 5 mg tablet 5 mg PO DAILY Qty: 30 3RF Discharge Orders: Discharge ED (Routine); Ordered 07/06/22 Ordered By: Marcelo Arnold Referrals: Abhay Chamorro MD [Primary Care Provider] - Discharge Diet: Regular Discharge Activity: Increase activity as tolerated Activity Restrictions/Additional Instructions: Follow-up with Dr. Gaxiola at your next scheduled appointment this week. Continue taking all home medications as previously prescribed. Return to the ER or your medical provider if condition worsens. Please read and understand discharge instructions. Thank you for choosing [facility] for your healthcare needs today. Please realize this is an emergency room and that we are providing you with a medical screening exam and this may not be complete and all inclusive of all the testing and or work up that you may need to determine your ailment or severity of your illness. It is very important that you follow up as instructed or that you return to the Emergency Department should you have concerns or if your condition changes or worsens in any way. Coding Level of Care Code ED [employer] Supervisor for Wilda Singh
[2022-07-06 19:05] VITALS: RESP 17
[2022-07-06] MEDS: oxyCODONE-APAP 5-325 mg Tablet 1 TAB PO (19:05)
== END 2022-07-06 19:44 | disposition home or self-care (01) ==
PROVIDERS: Emergency Provider Physician Assistant; PCP Family Medicine
DX: M25.551 Pain in right hip (principal); Z79.82 Long term (current) use of aspirin; Z79.02 Long term (current) use of antithrombotics/antiplatelets; Z87.891 Personal history of nicotine dependence
CPT/HCPCS: 73502; 99283

== ENCOUNTER → 2022-07-08 09:56 | Outpatient (BNVA) | payer MEDICARE, SELFPAY | PROVIDERS: PCP Family Medicine; Visit Provider Orthopaedic Surgery | DX: M54.16 Radiculopathy, lumbar region (principal) | CPT/HCPCS: 99213 ==

== ENCOUNTER 2022-07-15 06:00 | Outpatient (RCR) | payer MEDICARE, SELFPAY | END 2022-08-07 23:59 | disposition home or self-care (01) | LOC: SPT 06:00 | PROVIDERS: PCP Family Medicine; Visit Provider Orthopaedic Surgery | DX: M54.16 Radiculopathy, lumbar region (principal) | CPT/HCPCS: 97110; 97161 ==

== ENCOUNTER → 2022-08-04 08:05 | Outpatient (BNVA) | payer MEDICARE, SELFPAY | PROVIDERS: PCP Family Medicine; Visit Provider Orthopaedic Surgery | DX: M48.062 Spinal stenosis, lumbar region with neurogenic claudication (principal); M47.816 Spondylosis without myelopathy or radiculopathy, lumbar region | CPT/HCPCS: 72110; 99204 ==

== ENCOUNTER 2022-08-08 06:00 | Outpatient (RCR) | payer MEDICARE, SELFPAY | END 2022-08-25 23:59 | disposition home or self-care (01) | LOC: SPT 06:00 | PROVIDERS: PCP Family Medicine; Visit Provider Orthopaedic Surgery | DX: M54.16 Radiculopathy, lumbar region (principal) | CPT/HCPCS: 97110 ==

== ENCOUNTER → 2022-09-01 08:11 | Outpatient (BNVA) | payer MEDICARE, SELFPAY | PROVIDERS: PCP Family Medicine; Visit Provider Orthopaedic Surgery | DX: M48.062 Spinal stenosis, lumbar region with neurogenic claudication (principal) | CPT/HCPCS: 99213 ==

== ENCOUNTER → 2022-09-16 13:36 | Outpatient (BNVA) | payer MEDICARE, SELFPAY | PROVIDERS: PCP Family Medicine; Visit Provider Orthopaedic Surgery | DX: M17.11 Unilateral primary osteoarthritis, right knee (principal) | CPT/HCPCS: 73560; 73565; 99213 ==

== ENCOUNTER 2022-09-25 15:56 | Outpatient (CLI) | payer MEDICARE, SELFPAY ==
--- NOTE | 2022-09-25 16:30 | CT_ITS ---
WS: [id number] CT RIGHT knee, noncontrast HISTORY: pre op planning TECHNIQUE: Protocol for ADAL total knee replacement has been obtained. This includes axial imaging th rough the RIGHT hip, RIGHT knee and RIGHT ankle. DLP: 931.07 mGy.cm COMPARISON: None available. Pelvis: No fractures. Very minimal degenerative changes at the SI joints. No destructive process. Dis delmi colonic diverticulosis without acute diverticulitis. Patent bilateral inguinal canals. There is a loop of nonobstructed small bowel in the RIGHT inguinal canal hernia. RIGHT knee: Mild tricompartment joint space narrowing and osteophyte formation. No significant effusi on. RIGHT ankle: No destructive bone process. No fracture. CT/CT knee RT wo con* [id number] IMPRESSION: CT imaging provided for [facility] robotic total knee replacement. RIGHT inguinal canal hernia containing a loop of nonobstructed small bowel.
== END 2022-09-25 15:57 | disposition home or self-care (01) ==
LOC: RAD 16:00
PROVIDERS: PCP Family Medicine; Visit Provider Orthopaedic Surgery
DX: Z01.818 Encounter for other preprocedural examination (principal); M17.11 Unilateral primary osteoarthritis, right knee; K40.90 Unilateral inguinal hernia, without obstruction or gangrene, not specified as recurrent
CPT/HCPCS: 73700

== ENCOUNTER 2022-09-29 15:12 | Outpatient (CLI) | payer MEDICARE, SELFPAY ==
--- NOTE | 2022-09-29 15:42 | MM_ITS ---
WS: [id number] BILATERAL 3D TOMOSYNTHESIS DIGITAL SCREENING MAMMOGRAPHY WITH CAD CLINICAL INFORMATION: SCREEN HISTORY: Screening mammogram. No current complaints. COMPARISON: 2021 TECHNIQUE: Bilateral CC and MLO views. FINDINGS: Scattered fibroglandular densities bilaterally. No suspicious focal mass, asymmetry, calcifications, or architectural distortion. No evidence of malignancy. Vascular calcification. MM/[place] [id number] IMPRESSION: BI-RADS: 2-Benign FOLLOW UP: 1 Year Follow-up Recommend return to annual screening mammography.
== END 2022-09-29 15:13 | disposition home or self-care (01) ==
PROVIDERS: PCP Family Medicine; Visit Provider Family Medicine
DX: Z12.31 Encounter for screening mammogram for malignant neoplasm of breast (principal)
CPT/HCPCS: 77063; 77067

== ENCOUNTER 2022-10-07 06:00 | Outpatient (RCR) | payer MEDICARE, SELFPAY | END 2022-10-07 23:59 | disposition home or self-care (01) | LOC: SPT 06:00 | PROVIDERS: Visit Provider Orthopaedic Surgery | DX: M17.11 Unilateral primary osteoarthritis, right knee (principal) | CPT/HCPCS: 97161 ==

== ENCOUNTER 2022-10-08 06:00 | Outpatient (RCR) | payer MEDICARE, SELFPAY | END 2022-11-05 23:59 | disposition home or self-care (01) | LOC: SPT 06:00 | PROVIDERS: Visit Provider Orthopaedic Surgery | DX: M17.11 Unilateral primary osteoarthritis, right knee (principal) | CPT/HCPCS: 97110 ==

== ENCOUNTER 2022-10-13 14:57 | Outpatient (CLI) | payer MEDICARE, SELFPAY ==
--- NOTE | 2022-10-13 15:43 | XR_ITS ---
WS: [id number] SCREENING DEXA SCAN FP Complete CLINICAL INFORMATION: POSTMENOPAUSAL COMPARISON: March 03, 2021 FINDINGS: The L1-L4 bone mineral density measures 1.038 g/cm2. This corresponds to a T score score of -1.2 and Z score of 0.3. Left femoral neck bone mineral density measures 0.847 g/cm2. This corresponds to a T score of -1.3 an d Z score of 0.0. Right femoral neck bone mineral density measures 0.896 g/cm2. This corresponds to a T score -0.9of an d Z score of 0.4. Mean femoral neck bone mineral density measures 0.872 g/cm2. This corresponds to a T score of -1.1 an d Z score of 0.2. XR/XR DEXA axial skeleton* [id number] IMPRESSION: Osteopenia lumbar spine. Osteopenia femoral necks. Patient's FRAX calculated 10 year probability for major osteoporotic fracture i s 11.4 % and osteoporotic hip fracture is 2.1%. Bone mineral density in the lumbar spine has increased 1.7% since 2020 Bone mineral density in the femoral necks decreased -2.0% since 2020
== END 2022-10-13 14:58 | disposition home or self-care (01) ==
PROVIDERS: PCP Family Medicine; Visit Provider Family Medicine
DX: Z13.820 Encounter for screening for osteoporosis (principal); Z78.0 Asymptomatic menopausal state; M85.89 Other specified disorders of bone density and structure, multiple sites
CPT/HCPCS: 77080

== ENCOUNTER → 2022-10-28 15:46 | Outpatient (BNVA) | payer MEDICARE, SELFPAY | PROVIDERS: PCP Family Medicine; Visit Provider Podiatrist Foot & Ankle Surgery | DX: M72.2 Plantar fascial fibromatosis (principal); M76.822 Posterior tibial tendinitis, left leg; M21.42 Flat foot [pes planus] (acquired), left foot | CPT/HCPCS: 99214 ==

== ENCOUNTER → 2022-11-18 15:29 | Outpatient (BNVA) | payer MEDICARE, SELFPAY | PROVIDERS: PCP Family Medicine; Visit Provider Podiatrist Foot & Ankle Surgery | DX: M72.2 Plantar fascial fibromatosis (principal); M76.822 Posterior tibial tendinitis, left leg; M76.821 Posterior tibial tendinitis, right leg; M21.42 Flat foot [pes planus] (acquired), left foot | CPT/HCPCS: 99213 ==

== ENCOUNTER 2022-11-30 16:20 | Outpatient (CLI) | payer MEDICARE, SELFPAY | END 2022-11-30 16:21 | disposition home or self-care (01) | LOC: SPT 16:20 | PROVIDERS: PCP Family Medicine; Visit Provider Podiatrist Foot & Ankle Surgery | DX: Z46.89 Encounter for fitting and adjustment of other specified devices (principal); M76.829 Posterior tibial tendinitis, unspecified leg; M72.2 Plantar fascial fibromatosis; M21.40 Flat foot [pes planus] (acquired), unspecified foot | CPT/HCPCS: 97760; L3030 ==

== ENCOUNTER → 2022-12-22 15:40 | Outpatient (BNVA) | payer MEDICARE, SELFPAY | PROVIDERS: PCP Family Medicine; Visit Provider Student in an Organized Health Care Education/Training Program | DX: M17.11 Unilateral primary osteoarthritis, right knee (principal) | CPT/HCPCS: 73560; 73565; 99213 ==

== ENCOUNTER → 2023-02-16 14:45 | Outpatient (BNVA) | payer MEDICARE, SELFPAY | PROVIDERS: PCP Family Medicine; Visit Provider Student in an Organized Health Care Education/Training Program | DX: Z01.818 Encounter for other preprocedural examination (principal); M17.11 Unilateral primary osteoarthritis, right knee | CPT/HCPCS: 99214 ==

== ENCOUNTER 2023-02-18 17:04 | Outpatient (CLI) | payer MEDICARE, SELFPAY ==
--- NOTE | 2023-02-18 17:30 | CT_ITS ---
WS: [id number] CT RIGHT KNEE, NONCONTRAST TECHNIQUE: Noncontrast CT of the RIGHT knee to include the RIGHT hip and ankle. CLINICAL INFORMATION: RIGHT TOTAL KNEE ARTHROPLASTY [facility] COMPARISON: 09/15/22 DLP: 961.[address] scans at [facility] use at least one of these dose optimization techniques: automated e xposure control; mA and/or kV adjustment per patient size (includes targeted exams where dose is matc hed to clinical indication); or iterative reconstruction. FINDINGS: Moderate tricompartment arthritis RIGHT knee. Prior LEFT TKA. Subcutaneous soft tissue edema about th e knee. Hypertrophic changes about the joint line. RIGHT inguinal canal hernia containing a loop of nonobstructed bowel unchanged from previous. Sigmoid diverticulosis. Fat-containing LEFT inguinal hernia. IMPRESSION: RIGHT inguinal canal hernia containing a loop of nonobstructed bowel unchanged from previous Images obtained for preoperative purposes.
== END 2023-02-18 17:05 | disposition home or self-care (01) ==
LOC: RAD 17:06
PROVIDERS: PCP Family Medicine; Visit Provider Student in an Organized Health Care Education/Training Program
DX: M17.11 Unilateral primary osteoarthritis, right knee (principal)
CPT/HCPCS: 73700

== ENCOUNTER → 2023-03-02 14:57 | Outpatient (BNVA) | payer MEDICARE, SELFPAY | PROVIDERS: PCP Family Medicine; Visit Provider Family Medicine | DX: Z01.818 Encounter for other preprocedural examination (principal) | CPT/HCPCS: 80053; 81003; 85025 ==

== ENCOUNTER 2023-03-15 08:56 | Observation (INO) | payer MEDICARE, OTHER, SELFPAY ==
[2023-03-15] VITALS (19 sets, daily range): BP systolic 100–153; BP diastolic 52–80; PULSE 60–85; RESP 14–20; TEMP -12.3–36.7; O2SAT 92–98; BMI 27.4
[2023-03-15] MEDS: acetaminophen 1,000 MG/100 ML PIGGYBACK 400 MG IV ×3 (06:28→23:36)
[2023-03-15] MEDS: ketorolac 30 mg/mL INJ IVP (06:33)
[2023-03-15] MEDS: lactated ringers 500 ML IV (06:33)
[2023-03-15] MEDS: sodium chloride 0.9% 1,000 ML 30 ML IV (06:34)
--- NOTE | 2023-03-15 06:50 | P.HPUD_ITS ---
Surgery/Procedure H&P Update DATE OF PROCEDURE: March 15, 2023 DATE H&P PERFORMED: 02/16/23 H&P UPDATE INFORMATION: I have reviewed H&P completed within last 30 days, I have examined patient prior to procedure and No changes to prior documentation CHANGES TO PREVIOUS DOCUMENTATION: No change in HPI from office visit patient's had no change in clinical symptoms overall is doing well denies any urinary symptoms I did discuss with her pr eoperative clearance physician she did have a trace amount of bacteria in her urine but was likely a contaminant she was treated appropriately with antibiotics and just completed this she denies of any Urinary symptoms today at this point in time through shared decision making we elected proceed with surgical intervention for a right total knee arthroplasty Demond robotic assisted. She understands the ins and outs procedure risk benefits complication alternatives of surgery and elects to proceed all questions answered. PREOP DIAGNOSIS: Right knee degenerative joint disease PRIMARY INDICATION FOR PROCEDURE: Right knee degenerative joint disease PLANNED PROCEDURE: Operation Date: 03/15/23 07:00 Proposed Procedures p Demond Robot Total Knee Arthroplasty(Right) - Jeb Arnold DO
[2023-03-15] MEDS: ceFAZolin 2,000 MG in sodium chloride 0.9% (plus) 50 ML 100 MG IV ×2 (06:58→18:02)
[2023-03-15] MEDS: tranexamic acid 1,000 mg/10mL SDV 1000 MG IV (07:38)
[2023-03-15] MEDS: ROPivacaine 0.2% Premix 100 mL 200 MG INTRA-ARTI (08:02)
[2023-03-15] MEDS: tranexamic acid 1,000 mg/10mL SDV 1000 MG XX (08:02)
[2023-03-15] MEDS: ketorolac 30 mg/mL INJ XX (08:03)
[2023-03-15] MEDS: EPINEPHrine 1 mg/mL INJ XX (08:04)
--- NOTE | 2023-03-15 08:29 | ANES.PREANE2 ---
Pre-Anesthetic Assessment Height/Weight: Height 1.6 m Weight 70.307 kg Temp Pulse Resp BP Pulse Ox O2 Del Method 98 F 72 16 153/69 94 Room Air 03/15/23 06:14 03/15/23 06:14 03/15/23 06:14 03/15/23 06:14 03/15/23 06:14 03/15/23 06:14 Preop Diagnosis: Right knee degenerative joint disease Operation Date: 03/15/23 07:00 Proposed Procedures p Demond Robot Total Knee Arthroplasty(Right) - Jeb Arnold DO Familial anesthetic complications: none Was Beta Randal taken within 24 hours: N/A Was Clonidine taken within 24 hours: N/A Last intake: Intake Last Liquid Date 03/14/23 Last Liquid Time 22:30 Last Solid Date 03/14/23 Last Solid Time 22:00 Social No alcohol and No tobacco Exam alert, oriented x 3 and clear to auscultation bilaterally Airway Submandibular: within normal limits Cervical ROM: within normal limits Mallampati: Class II CV/HEM Anemia Metabolic Hyperlipidemia and Thyroid Disease [facility] [place] Lower Back Pain and Osteoarthritis/DJD Neuropsych Neuropathy Anesthetic Plan ASA status: 3 Anesthesia: Regional (specify below) (SAB with right adductor blk) Medications/Allergies Home Medications Medication Instructions Recorded Confirmed Last Taken Type escitalopram oxalate 20 mg tablet 20 mg PO QAM 06/16/19 03/12/23 03/12/23 History levothyroxine 100 mcg capsule 100 mcg PO .ON Wednesday06/16/19 03/12/23 03/12/23 History docusate sodium 100 mg capsule 300 mg PO BEDTIME 01/02/20 03/12/23 03/12/23 History (Stool Softener) trazodone 50 mg tablet 25 mg PO BEDTIME 01/02/20 03/12/23 03/12/23 History vitamin B12 0.5 mg-folic acid 1 mg 1 tab PO QAM 01/02/20 03/12/23 03/12/23 History tablet ferrous gluconate 324 mg (38 mg 324 mg PO BEDTIME 08/06/20 03/12/23 03/12/23 History iron) tablet cholecalciferol (vitamin D3) 25 25 mcg PO QAM 08/08/20 03/12/23 03/12/23 History mcg (1,000 unit) capsule (Vitamin D3) levothyroxine 88 mcg tablet 88 mcg PO .DAILY EXCEPT ON SAT 08/08/20 03/12/23 03/14/23 History (Euthyrox) ascorbic acid (vitamin C) 1,000 mg 1,000 mg PO QAM 11/12/20 03/12/23 03/12/23 History tablet (Vitamin C) calcium carbonate 600 mg-vitamin 1 tab PO QAM 11/12/20 03/12/23 03/12/23 History D3 5 mcg (200 unit) tablet diphenhydramine HCl 25 mg capsule 50 mg PO BEDTIME 11/12/20 03/12/23 03/12/23 History (Benadryl) fluticasone propionate 50 1 spray intranasal DAILY PRN 11/12/20 03/12/23 03/12/23 History mcg/actuation nasal Allergy Symptoms spray,suspension amlodipine 5 mg tablet 5 mg PO DAILY #30 tabs 11/13/20 03/12/23 03/15/23 Rx atorvastatin 40 mg tablet 40 mg PO BEDTIME 30 days #30 tabs 11/13/20 03/12/23 03/12/23 Rx clopidogrel 75 mg tablet 75 mg PO DAILY 30 days #30 tabs 11/13/20 03/12/23 03/10/23 Rx Custom Molded Orthotics #1 ea 06/24/21 02/16/23 Unknown Rx Custom Molded Orthotics #1 ea 10/28/22 02/16/23 Unknown Rx Allergies Allergy/AdvReac Type Severity Reaction Status Date / Time Sulfa (Sulfonamide Allergy algy-rash Verified 03/12/23 10:46 Antibiotics) Current Medications Generic Name Dose Route Start Last Admin Trade Name Freq PRN Reason Stop Dose Admin Sodium Chloride 1,000 mls @ 30 mls/hr 03/15/23 06:00 03/15/23 06:34 Sodium Chloride 0.9% IV 03/16/23 05:59 30 mls/hr .Q24H INDER Administration PFSH Anesthesia Medical History Borderline hyperlipidemia Cerebrovascular accident COVID-19 vaccine administered Hypothyroidism Osteoarthritis Primary osteoarthritis of right knee Surgical History History of arthroscopy of right knee History of hysterectomy History of tubal ligation Hx of cholecystectomy Status post left knee replacement Family History Denies family history of Diabetes CAD (coronary artery disease) Clotting disorder Dementia Hyperlipidemia Psychiatric illness Chronic kidney disease (CKD) Suicide Anesthesia complication Bleeding disorder Family history of premature coronary artery disease Lung disease Cancer Hypertension Stroke Social History Smoking and tobacco/nicotine status: former use of tobacco/nicotine Quit status (tobacco/nicotine): has quit using Former quit date comment: More than 15 years ago Alcohol intake: never Substance/Drug Use: never Household members: family Data Anesthesia Blood Bank 03/15/23 06:30 Blood Type AB Positive Rho(D) Type Positive Antibody Screen Negative Cardiac Studies: Echocardiogram 01/10/21 Cardiac Event Monitor 01/03/21 Anesthesia Procedures Nerve Block Nerve Block 1: Main Anesthesia: spinal anesthesia block Time Out Performed: Yes Consent: requested by attending/covering physician, from patient, risks and benefits reviewed and patient agrees to proceed Nerve block location: adductor canal (right) Anesthesia monitors applied: pulse oximetry, EKG, BP cuff and oxygen Nerve block position: supine Anesthetic Used: ropivicaine 0.5% Amount of anesthesia used (mL): 20 Ultrasound used to: recognize landmarks Nerve Stimulator Used?: No Interscalene/Femoral BLK: 4 stimuplex 21 g needle used for position and inplane approach Injection: neg aspiration of heme Patient Tolerated Procedure: well Complications: none
--- NOTE | 2023-03-15 08:54 | XRR_ITS ---
PROCEDURE INFORMATION: Exam: XR Right Knee Exam date and time: 03/15/2023 10:41 AM Age: 67 years old Clinical indication: Device placement; Joint replacement hardware; Prior surgery; Surgery date: Post-operative (0-2 days); Surgery type: RT knee; Additional info: S/P R tka TECHNIQUE: Imaging protocol: Radiologic exam of the right knee. Views: 1 or 2 views. COMPARISON: 1. CT knee RT ADAL 02/18/2023 5:22 PM 2. CR XR knees AP WB w RT lmt ORTH 12/22/2022 3:49 PM FINDINGS: Bones/joints: Interval right total knee arthroplasty with intact hardware, adequate alignment, and no perihardware lucency or fracture. No acute fracture or dislocation. Expected lipohemarthrosis. Soft tissues: Regional soft tissue swelling and air are expected in the immediate postoperative setting. XR/XR knee RT 1-2V [id number] IMPRESSION: Status post right total knee arthroplasty.
--- NOTE | 2023-03-15 08:55 | W.PM.BPON ---
Date of Procedure: 03/15/2023 Surgeon: Jeb Arnold DO Piston Maker(s): Marcelo Arnold PA-C Procedure(s) performed: Right total knee arthroplasty [facility] robotic assisted Findings of the procedure(s): Right knee severe degenerative joint disease, patient underwent right total knee arthroplasty and procedure went as planned with no complications Estimated blood loss: 20 cc Specimen(s) removed: Bony cuts from femur and tibia removed Post-operative diagnosis: Right knee degenerative joint disease
--- NOTE | 2023-03-15 08:56 | PM.OP ---
Operative Report Date of procedure: March 15, 2023 Surgeon: Jeb Arnold DO Outside Sales Engineer: Marcelo Arnold PA-C: PA was necessary for assistance in this case with retraction and protection of neurovascular structures as well as assist in implantation and wound closure. His help was needed to execute this case. Procedure: Preoperative diagnosis: Right knee degenerative joint disease post-op diagnosis: Same Procedure done: Right total knee arthroplasty, cemented?robotic assisted Demond Implants: Shobha triathlon size 3 femur CR cemented right [place] triathlon size?3 tibia baseplate cemented Shobha triathlon symmetric patella size 31 mm [place] triathlon polyethylene 11mm Surgeon: Jeb Arnold DO Estimated blood loss: 20 mL Tourniquet 55 minutes IV fluids: 600 mL Urine output: 500 mL Complications: None Condition: stable Disposition: floor Brief History: Patient is a 67-year-old female with with chronic right knee degenerative joint disease.? Patient has been worked up in the outpatient setting in the orthopedic office at this point time through shared decision making given [id number] arthritis as well as failed conservative treatment, and pt would like to proceed with a right total knee arthroplasty.? Through shared decision making elected to proceed with surgical intervention for right total knee arthroplasty.? We talked about continued conservative treatment and surgical intervention as far as the risk benefits complications alternatives surgical and nonsurgical treatment options.? At this point time understanding patient risks with surgery he agrees to proceed with surgical intervention.? Once again? risk with surgery include but are not limited to make it better make it worse blood clot, heart attack, stroke, on the table, infection, injury to nerves or vessels, persistent pain, arthrofibrosis, implant failure.? Understanding these risks patient agrees to proceed with surgical intervention consent was obtained in the office.? All questions answered. Procedure: Patient was seen and evaluated in the preoperative holding area.? Consent was reviewed and signed with patient with plan for right total knee arthroplasty.? All questions answered.? Correct extremity marked.? Patient seen and evaluated by the anesthesia department and once cleared for surgery was taken back to the operative suite.? Patient was placed into a supine position on the OR table.? All bony prominences were well-padded.? Patient was appropriately secured to the bed.? Patient underwent anesthesia per the anesthesia department.? Patient received spinal anesthesia and? Jaeger catheter was placed.? A nonsterile tourniquet was applied to the right thigh.? At this point in time a final timeout performed.? Patient received appropriate preoperative antibiotics and TXA. Next the right lower extremity was then prepped and draped in standard orthopedic fashion. Esmarch tourniquet was used exsanguinate the right lower extremity.? Tourniquet was insufflated to 250 mmHg. A standard anterior incision was made over midline of the knee.? Sharp scalpel excision through skin and subcutaneous tissue full-thickness skin flaps were made.? Fascia was elevated off of the extensor retinaculum was stable with medial parapatellar arthrotomy was then made.? The performed standard sequential releases..? Immediately on entry into the joint patient was found to have severe eburnated bone and tricompartmental arthritic changes noted.? With significant osteophyte formation.? Next the the patella was then stuffed and the knee was then flexed.?? Natasha was placed superiorly around the anterior aspect of the femur this was freed of synovium and I subsequently then placed by 2 femur pins to establish my femur arrays for the Demond robot.? These were then placed bicortically and? femur array was then appropriately secured with appropriate visualization.? Next attention was turned towards the tibial rays.? These were then drilled sequentially bicortically in parallel fashion and intraincisional.? I then placed my guide as well as my tibial array on in place.? This was appropriately secured and had excellent visualization with the Demodn robot.? Next the tibial checkpoint as well as femur checkpoint were then placed.? At this point time I then subsequently established my head center as well as my medial lateral malleoli as well as my checkpoints.? Next utilizing standard Demond technology I then mapped out the appropriate points and confirmation points around the femur as well as the tibia in standard fashion.? Once this was then done I then removed all osteophytes in preparation for dynamic testing.? All osteophytes were removed as well as I removed the ACL and the PCL was excised due to its significant tearing and degeneration noted.? At this point time the knee was brought into full extension and we performed our standard evaluation of our gap balancing stressing ligaments and extension as well as flexion appropriate adjustments were made to have appropriate gap balancing in both flexion and extension.? This plan for final counts.? We get a preoperative plan evaluating our implants which was a size 3 femur and a size 3 tibia.? Next we brought in the Demond robot and sequentially made our femur cuts.? All excess bony cuts were then removed.? Finally we made our tibial cut.? Once this was done a standard PCL retractor was then placed into this position I excised the medial and lateral meniscus.? The tibial cut was then subsequently removed all excess bony debris was removed.? I then utilized a lamina printer apprentice and remove the posterior osteophytes.? At this point time sized the tibia and confirmed this was a size 3.? I utilized our blunt probe to establish rotation of tibial implant.? Once this was done I then placed my tibia size 3 trial in appropriate position and then subsequently placed tibial pins to hold this into place placed a size 11 mm poly as well as a size 3 femur which was appropriately impacted in place knee was then subsequently brought into extension. Trials were then assessed, with the 11 mm poly and this was stable with varus valgus stress in extension as well as had symmetrical translation when brought into flexion demonstrating symmetrical gaps. I had excellent balance gaps in flexion and extension with varus and valgus stresses.? At this point I was satisfied with these implants these were then verified and opened on the back table size 3 tibia, size3 femur,? size 11 mm polythickness.? We did confirm appropriate gap balancing and stresses as well as alignment utilizing? Tangler and were satisfied with this plan.? ?At this point time with my trials in place I then towel clip the patella everted this made appropriate measurements subsequently utilizing freehand technique performed by patellar resurfacing this was confirmed to be appropriate resection and subsequently sized to be a 31 mm symmetric.? My drill peg guides were then clamped and appropriate position and appropriate position in the patella for appropriate tracking and parallel with the joint.? Pegs were drilled trial implant was placed and the knee was then subsequently ranged and found to have excellent patellar tracking.? Femur pegs were then drilled.? Satisfied with our tibial placement rotation I then utilized the keel punch and prepped the tibia.? At this point time all of our trial implants were removed.? All checkpoints as well as guidepins and arrays were removed and appropriate counts made.? The wound bed? was thoroughly irrigated and dried and prepped for cementation.? Cement was mixed on the back table.? Once cement was ready this was then covered onto the tibia and the tibial baseplate was then impacted and all excess cement was removed.? Next the polyethylene was then impacted into place on the tibial baseplate.? Next cement was placed onto the femur as well as under the femur implants and impacted in to place and all excess cement was extruded and removed.? Knee was taken into full extension? to clear all excess cement was removed.? Warm saline was placed over the joint.? I then towel clip patella and dried for cementation. cemented the patella into place.? This was all clamped and the cement was allowed to cure.? Thorough irrigation performed with pulse lavage.? I then placed my periarticular injection while the cement was curing.? Once cured the knee was taken through range of motion and had excellent stability and gaps were balanced in flexion and extension.? Tourniquet was then deflated. hemostasis satisfactory with electrocautery.? Next I then subsequently closed the capsule with Ethibond suture as well as a running strata fix suture.? Knee was then taken through range of motion 30 times.? Next the skin was then closed in layered fashion of running stratifix sutures of deep and subcutenous tissue and skin.? ?closed in flexion and Prineo glue was then placed over the incision this allowed to cure.? Incision was covered with Silverlon, with ABDs soft roll and Francisco wrap.? Patient was then awakened from anesthesia and taken to PACU in stable condition. Disposition: Patient taken to PACU in stable condition will be admitted to the floor for pain control PT/OT weight-bear as tolerated right lower extremity dressing changes as needed, DVT prophylaxis. Pain control. Patient will receive appropriate postoperative antibiotics. patient will be seen today by the internal medicine team for medical management.? Patient will follow up with the office in 2 weeks.? Patient understands agrees with current plan.? All questions answered.
--- NOTE | 2023-03-15 09:56 | PM.CONSULT ---
Providers/Reason For Consult Consulting Physician/Specialty*: David Hernandez MD, hospitalist Reason for Consult*: Medical management Requesting Physician: Dr. Arnold Attending Physician: Jeb Arnold DO Primary Care Provider: Abhay Chamorro MD History of Present Illness History of Present Illness Mariano Summers is a 67 year old female who was directly postoperative right total knee arthroplasty. I have been consulted to manage her medical problems. She has past history of CVA for which she is on Plavix. She also has a history of hypertension. She denies any recent chest pain, shortness of breath, or stroke symptoms. She reports she recovered nicely from her stroke with only minimal residual left upper extremity weakness. She denies any blood in her stool or black or tarry stools. Review of Systems General: Reports: 10 or more systems reviewed and unremarkable except in HPI and below Card: Denies: chest pain Resp: Denies: dyspnea GI: Denies: abdominal pain, nausea, vomiting, hematochezia or melena Medications/Allergies Home Medications Medication Instructions Recorded Confirmed Last Taken Type escitalopram oxalate 20 mg tablet 20 mg PO QAM 06/16/19 03/12/23 03/12/23 History levothyroxine 100 mcg capsule 100 mcg PO .ON Wednesday06/16/19 03/12/23 03/12/23 History docusate sodium 100 mg capsule 300 mg PO BEDTIME 01/02/20 03/12/23 03/12/23 History (Stool Softener) trazodone 50 mg tablet 25 mg PO BEDTIME 01/02/20 03/12/23 03/12/23 History vitamin B12 0.5 mg-folic acid 1 mg 1 tab PO QAM 01/02/20 03/12/23 03/12/23 History tablet ferrous gluconate 324 mg (38 mg 324 mg PO BEDTIME 08/06/20 03/12/23 03/12/23 History iron) tablet cholecalciferol (vitamin D3) 25 25 mcg PO QAM 08/08/20 03/12/23 03/12/23 History mcg (1,000 unit) capsule (Vitamin D3) levothyroxine 88 mcg tablet 88 mcg PO .DAILY EXCEPT ON SAT 08/08/20 03/12/23 03/14/23 History (Euthyrox) ascorbic acid (vitamin C) 1,000 mg 1,000 mg PO QAM 11/12/20 03/12/23 03/12/23 History tablet (Vitamin C) calcium carbonate 600 mg-vitamin 1 tab PO QAM 11/12/20 03/12/23 03/12/23 History D3 5 mcg (200 unit) tablet diphenhydramine HCl 25 mg capsule 50 mg PO BEDTIME 11/12/20 03/12/23 03/12/23 History (Benadryl) fluticasone propionate 50 1 spray intranasal DAILY PRN 11/12/20 03/12/23 03/12/23 History mcg/actuation nasal Allergy Symptoms spray,suspension amlodipine 5 mg tablet 5 mg PO DAILY #30 tabs 11/13/20 03/12/23 03/15/23 Rx atorvastatin 40 mg tablet 40 mg PO BEDTIME 30 days #30 tabs 11/13/20 03/12/23 03/12/23 Rx clopidogrel 75 mg tablet 75 mg PO DAILY 30 days #30 tabs 11/13/20 03/12/23 03/10/23 Rx Custom Molded Orthotics #1 ea 06/24/21 02/16/23 Unknown Rx Custom Molded Orthotics #1 ea 10/28/22 02/16/23 Unknown Rx Allergies Allergy/AdvReac Type Severity Reaction Status Date / Time Sulfa (Sulfonamide Allergy algy-rash Verified 03/12/23 10:46 Antibiotics) Current Medications Generic Name Dose Route Start Last Admin Trade Name Freq PRN Reason Stop Dose Admin Sodium Chloride 1,000 mls @ 30 mls/hr 03/15/23 06:00 03/15/23 06:34 Sodium Chloride 0.9% IV 03/16/23 05:59 30 mls/hr .Q24H INDER Administration PFSH Acute PFSH: Medical History (Updated 03/15/23 @ 10:18 by David Hernandez MD) Borderline hyperlipidemia Cerebrovascular accident COVID-19 vaccine administered Hypothyroidism Osteoarthritis Primary osteoarthritis of right knee Surgical History History of arthroscopy of right knee History of hysterectomy History of tubal ligation Hx of cholecystectomy Status post left knee replacement Family History Denies family history of Diabetes CAD (coronary artery disease) Clotting disorder Dementia Hyperlipidemia Psychiatric illness Chronic kidney disease (CKD) Suicide Anesthesia complication Bleeding disorder Family history of premature coronary artery disease Lung disease Cancer Hypertension Stroke Social History Smoking and tobacco/nicotine status: former use of tobacco/nicotine Quit status (tobacco/nicotine): has quit using Former quit date comment: More than 15 years ago Alcohol intake: never Substance/Drug Use: never Household members: family Vitals/I&O/Wt Last Vital Signs Temp 97.8 F 03/15/23 09:29 Pulse 78 03/15/23 09:54 Resp 20 H 03/15/23 09:54 BP 121/61 03/15/23 09:54 Pulse Ox 92 03/15/23 09:54 O2 Del Method Room Air 03/15/23 09:54 O2 Flow Rate 6 03/15/23 09:34 03/14/23 03/15/23 03/15/23 22:59 06:59 14:59 Intake Total 100 / 100 100 / 100 Output Total 20 / 20 Balance 100 / 100 80 / 80 Weight last 48 hrs Weight 70.307 kg Physical Exam Narrative: General exam is a conversive white female in no distress Neck is supple no lymphadenopathy or thyromegaly Cardiovascular regular rate and rhythm, no murmur Lungs clear Abdomen is soft with positive bowel sounds Extremities no cyanosis clubbing or edema. No foot drop is noted on the right. Distal cap refill brisk. Dressing is present right knee. Skin no rash Neuro difficult to note but patient reports slight left upper extremity weakness. Exam appeared relatively normal. Urinary Catheter Management: Jaeger: Cath Placed During This Visit: yes Urinary Catheter Date of Insertion: 03/15/23 Urinary Catheter Time of Insertion: 07:25 Data Other Labs: Laboratory in March 02 was reviewed in detail including a CBC, BMP, liver function tests, urinalysis. Knee x-ray I reviewed personally postoperative which demonstrates arthroplasty A&P Assessment and plan (1) Cerebrovascular accident: Patient has past history of CVA Resume her Plavix, starting tomorrow. I discussed this with her surgeon. Continue statin (2) Primary osteoarthritis of right knee: Patient is directly postoperative right knee arthroplasty Management per orthopedics CBC tomorrow to look for postoperative anemia. Overall blood loss appears to only be 20 cc. BMP tomorrow as well for fluid and electrolyte management. Eliquis 2.5 mg twice daily can be utilized for her DVT prevention management. I discussed with orthopedics. (3) Hypertension: Continue amlodipine Plan Other medical problems as noted in past medical history Thank you for this consultation Consult Attestations Medical Necessity Statement: As per primary Diagnoses Cerebrovascular accident I63.9 Primary osteoarthritis of right knee M17.11 Hypertension I10 Time Spent (min) 32
--- NOTE | 2023-03-15 10:01 | PM.PACU ---
PACU note Narrative: Patient is a 67-year-old female that just underwent a right total knee arthroplasty. Pt transferred to PACU in stable condition. Dressing is dry. pt is awake and alert. pt can wiggle toes and plantarflex and dorsiflex foot. pt able to perform straight leg raise, Femoral nerve intact. Distal pulses are palpable toes are warm and well-perfused. Cap refill is normal and under 2 seconds. Unable to assess sensation due to residual spinal. pain is controlled. Exam: awake Disposition: admitted
[2023-03-15] MEDS: lactated ringers 1,000 ML 100 ML IV ×2 (11:21→23:36)
[2023-03-15] MEDS: multivitamin therapeutic Tablet 1 TAB PO (11:26)
[2023-03-15] MEDS: calcium carb-vit d 600mg/400unit 1 Tablet 1 EACH PO ×2 (11:26→17:10)
[2023-03-15] MEDS: docusate sodium 100 mg Capsule PO ×2 (11:27→17:10)
[2023-03-15] MEDS: chlorhexidine gluconate 0.12% Btl 473 mL 30 ML MUCOUS MEM ×3 (11:27→21:22)
[2023-03-15] MEDS: oxyCODONE 5 mg IR Tab/Cap PO ×2 (14:22→21:27)
--- NOTE | 2023-03-15 16:06 | ANE.PACU2 ---
Inpatient post-anesthesia follow up: Airway intact: Yes Vital signs: Temperature 9.9 F Pulse Rate 75 Respiratory Rate 16 Blood Pressure 128/71 Pulse Oximetry 93 Oxygen Delivery Me thod Room Air Oxygen Flow Rate 6 Fraction of Inspir ed Oxygen Hydration adequate: Yes Nausea and vomiting: No Pain level: 2 Mental status: Baseline
[2023-03-15] MEDS: tranexamic acid 1,000 MG/100 ML PREMIX 600 MG IV (17:06)
[2023-03-15] MEDS: iron polysaccharide complex 150 mg Capsule PO (17:10)
[2023-03-15] MEDS: mupirocin oint 22 gm 1 APPLIC NASAL (18:03)
[2023-03-15] MEDS: atorvastatin 40 mg Tablet PO (21:21)
[2023-03-15] MEDS: trazodone 50 mg Tablet 25 MG PO (21:21)
[2023-03-16] VITALS (7 sets, daily range): BP systolic 147–170; BP diastolic 55–76; PULSE 63–82; RESP 14–18; TEMP 36.6–36.8; O2SAT 91–98
[2023-03-16] MEDS: ceFAZolin 2,000 MG in sodium chloride 0.9% (plus) 50 ML 100 MG IV ×2 (01:27→11:10)
[2023-03-16 06:20] LABS: Basophils % 0.2 %; Eosinophils # 0.1 10^3/uL (0.0-0.8); Eosinophils % 0.8 %; Hematocrit 40.1 % (36-47); Lymphocytes # 0.7 10^3/uL (0.8-4.8); Lymphocytes % 8.6 %; Mean Corpuscular HGB Conc 33.4 g/dL (30-55); Mean Corpuscular Hemoglobin 30.3 pg (27-33); Mean Corpuscular Volume 90.7 fl (85-98); Mean Platelet Volume 9.6 fL (7.4-10.4); Monocytes # 0.7 10^3/uL (0.2-0.9); Monocytes % 7.8 %; Neutrophils # 6.97 10^3/uL (1.8-7.7); Neutrophils % 82.2 %; Nucleated Red Blood Cells % 0 %; Platelet Count 249 10^3/cmm (157-399); Red Blood Count 4.42 10^6/uL (3.85-5.65); Red Cell Distribution Width 12.5 % (12.1-15.1); White Blood Count 8.48 10^3/uL (3.29-11.43)
[2023-03-16] MEDS: escitalopram 10 mg Tablet 20 MG PO (06:34)
[2023-03-16] MEDS: acetaminophen 1,000 MG/100 ML PIGGYBACK 400 MG IV (06:35)
[2023-03-16 06:44] LABS: Anion Gap 14.7 (5-19); Blood Urea Nitrogen 7 mg/dL (8-23); Calcium 8.4 mg/dL (8.5-10.5); Carbon Dioxide 25 mmol/L (22-29); Chloride 97 mmol/L (98-107); Glomerular Filtration Rate 220.6 mL/min (90-130); Glucose 136 mg/dL (65-115); Osmolality Calculated 276 mOsm/kg (285-295); Potassium 3.7 mmol/L (3.5-5.1); Sodium 133 mmol/L (136-145)
[2023-03-16] MEDS: ondansetron 2 mg/ML SDV 2 mL 4 MG IVP ×2 (07:48→14:00)
[2023-03-16] MEDS: mupirocin oint 22 gm 1 APPLIC NASAL ×2 (08:45→17:21)
[2023-03-16] MEDS: chlorhexidine gluconate 0.12% Btl 473 mL 30 ML MUCOUS MEM ×4 (08:45→20:30)
[2023-03-16] MEDS: amlodipine 5 mg Tablet PO (08:46)
[2023-03-16] MEDS: docusate sodium 100 mg Capsule PO ×2 (08:46→17:21)
[2023-03-16] MEDS: HYDROcodone-acetaminophen 5-325 mg Tablet 1 TAB PO ×4 (08:46→23:52)
[2023-03-16] MEDS: apixaban 5 mg Tablet 2.5 MG PO ×2 (08:47→17:22)
[2023-03-16] MEDS: clopidogrel 75 mg Tablet PO (08:47)
[2023-03-16] MEDS: multivitamin therapeutic Tablet 1 TAB PO (08:47)
--- NOTE | 2023-03-16 08:53 | PM.PN ---
Subjective Subjective: Ms. Breen reports she has some nausea. She states this happened with her last hospital stay, and that she had persistent nausea and the hospital stay 4 days. She was able to take the pain medicine that she was discharged with, which was hydrocodone. Medications: Reviewed: Yes Vitals/I&O/Wt Last Vital Signs Temp 97.8 F 03/16/23 07:29 Pulse 67 03/16/23 07:29 Resp 16 03/16/23 07:29 BP 157/74 03/16/23 07:29 Pulse Ox 96 03/16/23 07:29 O2 Del Method Room Air 03/16/23 07:29 O2 Flow Rate 6 03/15/23 09:34 03/15/23 03/16/23 03/16/23 22:59 06:59 14:59 Intake Total 2270 / 3350 150 / 3500 100 / 100 Output Total 1400 / 1420 575 / 1995 Balance 870 / 1930 -425 / 1505 100 / 100 Weight last 48 hrs Weight 70.307 kg Physical Exam Narrative: General exam no distress Neck is supple no lymphadenopathy or thyromegaly Cardiovascular regular rate and rhythm, no murmur Lungs clear Abdomen is soft with positive bowel sounds Extremities no cyanosis clubbing or edema. No foot drop is noted on the right. Distal \ Urinary Catheter Management: Jaeger: Cath Placed During This Visit: yes, but has since been removed by the nurse Reason for Continuing Indwelling Catheter: Perioperative Use in Selected Surgeries Urinary Catheter Date of Insertion: 03/15/23 Urinary Catheter Time of Insertion: 07:25 Date Urinary Catheter Removed: 03/16/23 Time Urinary Catheter Discontinued: 06:00 Data 03/16/23 05:40 03/16/23 05:40 A&P Assessment and plan (1) Cerebrovascular accident: Patient has past history of CVA Continue Plavix and statin (2) Primary osteoarthritis of right knee: Patient is directly postoperative right knee arthroplasty Management per orthopedics No evidence of postoperative anemia Continue fluids secondary to persistent nausea and vomiting Eliquis for DVT prophylaxis Secondary to persistent nausea vomiting oxycodone was discontinued. She was instructed to take hydrocodone which she tolerated last time. She is going to try to avoid Dilaudid. (3) Hypertension: Continue amlodipine Plan Other medical problems as noted in past medical history Thank you for this consultation Attestations Medical Necessity Statement*: As per primary Diagnoses Cerebrovascular accident I63.9 Primary osteoarthritis of right knee M17.11 Hypertension I10 Time Spent (min) 24
--- NOTE | 2023-03-16 10:02 | PC.CHAP ---
Pastoral Care Encounter/Spiritual Assessment Type of Contact [] Declined clinical exercise specialist visit [] Patient/Family/Request visit [] Outpatient visit [] Follow-up visit [] Physician referral [] Code/Alert [x] Routine visit [] Staff referral [] Actively dying [] Patient sleeping [] Family support [] [] Out of room [] Palliative care [] [] Receiving care in room [] Pre-surgical visit [] Trauma [] Long length of stay [] ICU visit [] Other: Relational/Emotional Strength [x] Patient feels connected with others/family/visitors/staff [] Distress [] Loneliness/isolation [] Abandonment Spirituality of Patient [x] Person of Jeanne [] Attends Jehov[employer] Witness of their Jeanne [x] Believes in Prayer [] Reads Bible or Rastafari materials [] There are Spiritual issues to be addressed Skip Hoist Operator Interventions [x] Prayer [x] Active listening [] Non-anxious presence [] Spiritual/emotional support [] Crisis/trauma care [] Spiritual counseling [] Bereavement support [] Provided bereavement packet [] Provided Bible/devotional materials [] Provided toy/stuffed animal, coloring book to patient or family member [] Provided Communion [] Anointing/[place] [] Salvation [x] Completed spiritual assessment [] Other: Impact on Illness or Injury [] Angry [] Fearful [] Anxious [] Often cries [] Exhaustion [] Unable to work [] Unable to attend yazdanism [] Unable to walk/stand [] Unable to read [] Unable to drive [] Unable to eat/drink [] Unable to sleep [] Unable to be with family [] Patient intubated [] Other: Summary Time spent with patient 5 min
[2023-03-16] MEDS: ketorolac 30 mg/mL INJ 15 MG IVP ×2 (11:14→22:14)
[2023-03-16] MEDS: lactated ringers 1,000 ML 75 ML IV (14:00)
[2023-03-16] MEDS: calcium carb-vit d 600mg/400unit 1 Tablet 1 EACH PO (17:21)
[2023-03-16] MEDS: trazodone 50 mg Tablet 25 MG PO (20:30)
[2023-03-16] MEDS: atorvastatin 40 mg Tablet PO (20:30)
[2023-03-17] MEDS: HYDROcodone-acetaminophen 5-325 mg Tablet 1 TAB PO ×3 (03:32→15:36)
[2023-03-17] MEDS: lactated ringers 1,000 ML 75 ML IV (03:33)
[2023-03-17 04:00] VITALS: BP 141/58; PULSE 70; RESP 17; TEMP 36.8; O2SAT 93
[2023-03-17 05:41] LABS: Basophils % 0.3 %; Eosinophils % 0.3 %; Hematocrit 40.7 % (36-47); Lymphocytes # 0.8 10^3/uL (0.8-4.8); Lymphocytes % 10.2 %; Mean Corpuscular HGB Conc 33.2 g/dL (30-55); Mean Corpuscular Hemoglobin 29.7 pg (27-33); Mean Corpuscular Volume 89.6 fl (85-98); Mean Platelet Volume 9.4 fL (7.4-10.4); Monocytes # 0.8 10^3/uL (0.2-0.9); Neutrophils # 5.83 10^3/uL (1.8-7.7); Neutrophils % 77.8 %; Nucleated Red Blood Cells % 0 %; Platelet Count 269 10^3/cmm (157-399); Red Blood Count 4.54 10^6/uL (3.85-5.65); Red Cell Distribution Width 12.6 % (12.1-15.1); White Blood Count 7.48 10^3/uL (3.29-11.43)
[2023-03-17 06:04] LABS: Anion Gap 10.4 (5-19); Blood Urea Nitrogen 6 mg/dL (8-23); Calcium 9.3 mg/dL (8.5-10.5); Carbon Dioxide 29 mmol/L (22-29); Chloride 103 mmol/L (98-107); Glomerular Filtration Rate 158.3 mL/min (90-130); Glucose 109 mg/dL (65-115); Osmolality Calculated 286 mOsm/kg (285-295); Potassium 3.4 mmol/L (3.5-5.1); Sodium 139 mmol/L (136-145)
[2023-03-17] MEDS: escitalopram 10 mg Tablet 20 MG PO (06:23)
[2023-03-17 07:45] VITALS: BP 138/62; PULSE 74; RESP 18; TEMP 36.1; O2SAT 95
[2023-03-17] MEDS: amlodipine 5 mg Tablet PO (09:17)
[2023-03-17] MEDS: multivitamin therapeutic Tablet 1 TAB PO (09:17)
[2023-03-17] MEDS: clopidogrel 75 mg Tablet PO (09:17)
[2023-03-17] MEDS: apixaban 5 mg Tablet 2.5 MG PO (09:17)
[2023-03-17] MEDS: calcium carb-vit d 600mg/400unit 1 Tablet 1 EACH PO (09:17)
[2023-03-17] MEDS: potassium chloride ER 20 mEq Tablet 40 MEQ PO (09:17)
[2023-03-17] MEDS: iron polysaccharide complex 150 mg Capsule PO (09:17)
--- NOTE | 2023-03-17 09:20 | P.PN_ITS ---
Subjective Subjective: Patient is 2 days postop right total knee arthroplasty. No acute events overnight. Pain is well controlled and she has been able to get up and ambulate around room. She had PT yesterday patient has been able to keep p.o. fluids down along with crackers over the last 10 to 12 hours. Patient says she is feeling a lot better and her nausea has improved greatly. Vitals/I&O/Wt Last Vital Signs Temp 97.0 F L 03/17/23 07:45 Pulse 74 03/17/23 07:45 Resp 18 03/17/23 07:45 BP 138/62 03/17/23 07:45 Pulse Ox 95 03/17/23 07:45 O2 Del Method Room Air 03/17/23 07:45 O2 Flow Rate 6 03/15/23 09:34 03/16/23 03/17/23 03/17/23 22:59 06:59 14:59 Intake Total 60 / 1510 1000 / 2510 Output Total 2200 / 2640 1000 / 3640 Balance -2140 / -1130 0 / -1130 Physical Exam Const: COMMON NORMALS: no acute distress GENERAL APPEARANCE: cooperative Extremity: NARRATIVE EXTREMITY EXAM: Right leg? Dressing is dry and intact. pt can wiggle toes and plantarflex and dorsiflex foot. pt able to perform straight leg raise, Femoral nerve intact. Distal pulses are palpable toes are warm and well-perfused. Cap refill is normal and under 2 seconds. Sensation to foot is intact. Urinary Catheter Management: Jaeger: Cath Placed During This Visit: yes, but has since been removed by the nurse Reason for Continuing Indwelling Catheter: Perioperative Use in Selected Cole rgeries Urinary Catheter Date of Insertion: 03/15/23 Urinary Catheter Time of Insertion: 07:25 Date Urinary Catheter Removed: 03/16/23 Time Urinary Catheter Discontinued: 06:00 Data 03/17/23 05:19 03/17/23 05:19 A&P Assessment and plan (1) Status post total right knee replacement: Plan Plan: Hospitalist on board for medical management Labs and imaging ordered DVT prophylaxis Pain control PT Weightbearing as tolerated Follow-up appointment at orthopedic clinic in 2 weeks Patient's nausea and vomiting has improved and she is able to keep p.o. food and fluids down. patient is stable for discharge home from an orthopedic standpoint. Attestations Medical Necessity Statement*: Continuing care for right total knee arthroplasty Coding Level of Care Code Acute Code for Chg Fwd Diagnoses Status post total right knee replacement Z96.651
[2023-03-17] MEDS: chlorhexidine gluconate 0.12% Btl 473 mL 30 ML MUCOUS MEM (09:23)
[2023-03-17] MEDS: mupirocin oint 22 gm 1 APPLIC NASAL (09:23)
[2023-03-17 12:03] VITALS: BP 161/68; PULSE 72; RESP 18; TEMP 36.6; O2SAT 96
[2023-03-17] MEDS: TRAMadol 50 mg Tablet PO (12:17)
--- NOTE | 2023-03-17 12:58 | PM.PN ---
Subjective Subjective: Patient reports she is much better. No nausea and vomiting. Working well with physical therapy Medications: Reviewed: Yes Vitals/I&O/Wt Last Vital Signs Temp 97.9 F 03/17/23 12:03 Pulse 72 03/17/23 12:03 Resp 18 03/17/23 12:03 BP 161/68 03/17/23 12:03 Pulse Ox 96 03/17/23 12:03 O2 Del Method Room Air 03/17/23 12:03 O2 Flow Rate 6 03/15/23 09:34 03/16/23 03/17/23 03/17/23 22:59 06:59 14:59 Intake Total 60 / 1510 1000 / 2510 646.25 / 646.25 Output Total 2200 / 2640 1000 / 3640 Balance -2140 / -1130 0 / -1130 646.25 / 646.25 Physical Exam Narrative: General exam no distress Neck is supple no lymphadenopathy or thyromegaly Cardiovascular regular rate and rhythm, no murmur Lungs clear Abdomen is soft with positive bowel sounds Extremities no cyanosis clubbing or edema. No foot drop is noted on the right. Urinary Catheter Management: Jaeger: Cath Placed During This Visit: yes, but has since been removed by the nurse Reason for Continuing Indwelling Catheter: Perioperative Use in Selected Surgeries Urinary Catheter Date of Insertion: 03/15/23 Urinary Catheter Time of Insertion: 07:25 Date Urinary Catheter Removed: 03/16/23 Time Urinary Catheter Discontinued: 06:00 Data 03/17/23 05:19 03/17/23 05:19 A&P Assessment and plan (1) Cerebrovascular accident: Patient has past history of CVA Continue Plavix and statin (2) Primary osteoarthritis of right knee: Postoperative day #2 Management per orthopedics No evidence of postoperative anemia Much improved with no nausea and vomiting Eliquis for DVT prophylaxis We will add oxycodone as an allergy, although really this is just a side effect intolerance (3) Hypertension: Continue amlodipine Plan Other medical problems as noted in past medical history Thank you for this consultation Attestations Medical Necessity Statement*: As per primary Diagnoses Cerebrovascular accident I63.9 Primary osteoarthritis of right knee M17.11 Hypertension I10 Time Spent (min) 18
[2023-03-17 15:28] VITALS: BP 158/76; PULSE 73; RESP 18; TEMP 36.7; O2SAT 94
--- NOTE | 2023-03-17 15:48 | P.DS_ITS ---
Discharge Providers Date of Admission: 03/15/23 08:56 Date of Discharge: March 17, 2023 Attending Provider at Admission: Jeb Arnold DO Attending Provider at Discharge: Jeb Arnold DO Consults: Hospitalist?Dr. Hernandez Primary Care Provider: Abhay Chamorro MD Diagnoses at Discharge Discharge Diagnosis (1) Cerebrovascular accident: Status: Inactive (2) Primary osteoarthritis of right knee: Status: Resolved (3) Hypertension: Status: Acute Reason for Visit Reason for Visit: 26196 M17.11 Brief History: Status post right total knee arthroplasty Hospital Course Hospital Course Patient presented to the preoperative holding area with plan for right total k nee arthroplasty after patient has been worked up in the outpatient setting for failed conservative treatment of right knee degenerative joint disease.? Once cleared by anesthesia for surgery patient subsequently was taken back to the operative suite? underwent? anesthesia per anesthesia department and then subsequently underwent a right total knee arthroplasty.? Procedure was performed without any complications patient was taken to PACU in stable condition patient? recovered well in PACU and then was admitted to the floor postoperatively internal medicine was consulted and on board for medical management and assistance with care.? Patient received appropriate PT/OT, postoperative antibiotics, postoperative TXA, pain control, postoperative DVT prophylaxis.? Elevation and ice.? Patient encouraged for knee range of motion allowed weightbearing as tolerated to the operative lower extremity.? Dressing was changed as needed, labs were monitored daily.?? Patient recovered well postoperatively and worked well and progressed well with therapy.? Patient had significant postoperative nausea during postoperative day 1 and as result requiring further hospitalization. It was determined on postoperative day 2 the patient was stable for discharge from an orthopedic standpoint and medicine.? Patient was comfortable with discharge and plan was discharged home.? Patient received appropriate discharge instructions as well as pain medication and DVT prophylaxis postoperatively.? Given appropriate instructions for? dressing management.? Patient will follow-up with Dr. Arnold/orthopedics in the office in 2 weeks.? All questions answered.? Understand if there is any issues questions or concerns and contact the office. Physical Exam Const: COMMON NORMALS: no acute distress GENERAL APPEARANCE: cooperative Extremity: NARRATIVE EXTREMITY EXAM: Right leg? Dressing is dry and intact. pt can wiggle toes and plantarflex and dorsiflex foot. pt able to perform straight leg raise, Distal pulses are palpable toes are warm and well-perfused. Cap refill is normal and under 2 seconds. Sensation to foot is intact. Urinary Catheter Management: Jaeger: Cath Placed During This Visit: yes, but has since been removed by the nurse Reason for Continuing Indwelling Catheter: Perioperative Use in Selected Rin geries Urinary Catheter Date of Insertion: 03/15/23 Urinary Catheter Time of Insertion: 07:25 Date Urinary Catheter Removed: 03/16/23 Time Urinary Catheter Discontinued: 06:00 Discharge Data Studies Completed and Pending Completed Studies During Hospitalization Category Date Time Status XR knee RT 1-2V 27460 Routine Exams 03/15/23 08:54 Completed Pending at discharge Category Date Time Status Basic Metabolic Panel AM LABS Lab 03/18/23 04:00 Ordered Complete Blood Count w/Auto AM LABS Lab 03/18/23 04:00 Ordered Radiology Impressions Knee X-Ray 03/15/23 08:54 IMPRESSION: Status post right total knee arthroplasty. Laboratory Results WBC 7.48 10^3/uL (3.29-11.43) 03/17/23 05:19 RBC 4.54 10^6/uL (3.85-5.65) 03/17/23 05:19 Hgb 13.50 g/dL (11.27-16.99) 03/17/23 05:19 Hct 40.7 % (36-47) 03/17/23 05:19 MCV 89.6 fl (85-98) 03/17/23 05:19 MCH 29.7 pg (27-33) 03/17/23 05:19 MCHC 33.2 g/dL (30-55) 03/17/23 05:19 RDW 12.6 % (12.1-15.1) 03/17/23 05:19 Plt Count 269 10^3/cmm (157-399) 03/17/23 05:19 MPV 9.4 fL (7.4-10.4) 03/17/23 05:19 Neut % (Auto) 77.8 % 03/17/23 05:19 Lymph % (Auto) 10.2 % 03/17/23 05:19 [place] % (Auto) 11.0 % 03/17/23 05:19 Eos % (Auto) 0.3 % 03/17/23 05:19 Baso % (Auto) 0.3 % 03/17/23 05:19 Neut # (Auto) 5.83 10^3/uL (1.8-7.7) 03/17/23 05:19 Lymph # (Auto) 0.8 10^3/uL (0.8-4.8) 03/17/23 05:19 [place] # (Auto) 0.8 10^3/uL (0.2-0.9) 03/17/23 05:19 Eos # (Auto) 0.0 10^3/uL (0.0-0.8) 03/17/23 05:19 Baso # (Auto) 0.0 10^3/uL (0.0-0.1) 03/17/23 05:19 Nucleated RBC % (auto) 0 % 03/17/23 05:19 Nucleated RBCs # 0.0 /100WBC 03/17/23 05:19 Sodium 139 mmol/L (136-145) 03/17/23 05:19 Potassium 3.4 mmol/L (3.5-5.1) L 03/17/23 05:19 Chloride 103 mmol/L (98-107) 03/17/23 05:19 Carbon Dioxide 29 mmol/L (22-29) 03/17/23 05:19 Anion Gap 10.4 (5-19) 03/17/23 05:19 BUN 6 mg/dL (8-23) L 03/17/23 05:19 Creatinine 0.4 mg/dL (0.5-0.9) L 03/17/23 05:19 GFR Calculation 158.3 mL/min (90-130) H 03/17/23 05:19 Glucose 109 mg/dL (65-115) 03/17/23 05:19 Calculated Osmolality 286 mOsm/kg (285-295) 03/17/23 05:19 Calcium 9.3 mg/dL (8.5-10.5) 03/17/23 05:19 Blood Type AB Positive 03/15/23 06:30 Rho(D) Type Positive 03/15/23 06:30 Antibody Screen Negative 03/15/23 06:30 Vitals Last Vital Signs Temp 98.1 F 03/17/23 15:28 Pulse 73 03/17/23 15:28 Resp 18 03/17/23 15:28 BP 158/76 03/17/23 15:28 Pulse Ox 94 03/17/23 15:28 O2 Del Method Room Air 03/17/23 15:28 O2 Flow Rate 6 03/15/23 09:34 Discharge Plan Discharge Patient Disposition: Home Health Service Condition: Stable Prescriptions: New Eliquis 2.5 mg tablet 2.5 mg PO BID 14 Days Qty: 28 0RF hydrocodone-acetaminophen 5-325 mg tablet 1 tab PO Q4H PRN (Reason: pain) 7 Days Qty: 42 0RF Continued levothyroxine 100 mcg capsule 100 mcg PO .ON WEDNESDAY escitalopram oxalate 20 mg tablet 20 mg PO QAM (DME) Custom Molded Orthotics See Rx Instructions .Route .MEDSUPPLY Qty: 1 0RF Rx Instructions: As directed (DME) Custom Molded Orthotics See Rx Instructions .Route .MEDSUPPLY Qty: 1 0RF Rx Instructions: As directed trazodone 50 mg Tablet 25 mg PO BEDTIME vitamin [id number] acid 0.5-1 mg Tablet 1 tab PO QAM docusate sodium [Stool Softener] 100 mg Capsule 300 mg PO BEDTIME ferrous gluconate 324 mg (38 mg iron) Tablet 324 mg PO BEDTIME levothyroxine [Euthyrox] 88 mcg tablet 88 mcg PO .DAILY EXCEPT ON SAT Rx Instructions: every day but wednesday cholecalciferol (vitamin D3) [Vitamin D3] 25 mcg (1,000 unit) Capsule 25 mcg PO QAM ascorbic acid (vitamin C) [Vitamin C] 1,000 mg Tablet 1,000 mg PO QAM calcium carbonate-vitamin D3 600 mg(1,500mg) -200 unit Tablet 1 tab PO QAM diphenhydramine HCl [Benadryl] 25 mg Capsule 50 mg PO BEDTIME fluticasone propionate 50 mcg/actuation [place],Suspension 1 spray INTRANASAL DAILY PRN (Reason: Allergy Symptoms) atorvastatin 40 mg Tablet 40 mg PO BEDTIME 30 Days Qty: 30 3RF clopidogrel 75 mg Tablet 75 mg PO DAILY 30 Days Qty: 30 3RF amlodipine 5 mg tablet 5 mg PO DAILY Qty: 30 3RF Discharge Orders: Discharge Order (Routine); Ordered 03/17/23 Ordered By: Jeb Arnold Referrals: [facility] ([facility]) [Outside] Jeb Arnold, [Physician] - 7-10 days (Dr. Arnold's office will contact you within 2 business days to set up your follow-up appointment. ) Discharge Diet: Advance as tolerated Discharge Activity: Increase activity as tolerated, Use walker/crutches as instructed and As per PT/OT instructions Patient Instructions: Hydrocodone/Acetaminophen (By mouth), Ondansetron (By mouth) (Zofran, Zofran ODT, Zuplenz), Apixaban (By mouth) (Eliquis), Osteoar thritis (DC), Total Knee Replacement (DC), Opioid Safety Activity Restrictions/Additional Instructions: Orthopedic Discharge instructions Keep incisions clean dry and intact, leave Silverlon bandage dressings on in place for 7 days after that may rinse incisions with warm soapy water pat dry and redress with a dry dressing. Patient may weight-bear as tolerate to the operative extremity Utilize crutches as needed Encourage knee range of motion Ice and elevate as needed for pain and swelling Take pain medication as prescribed Take antinausea medication as needed The prescribed Eliquis twice daily for the next 14 days for blood clot prevention May supplement for pain with ibuprofen [id number] as needed No baths or soaks Follow-up in the orthopedic office in 2 weeks Contact the office for any questions or concerns Discharge Attestations Time Spent in Discharge Care*: less than 30 min Status at Discharge: Cognitive status at discharge: cognitively intact , Behavioral status at discharge: cooperative , Quality Metrics Clinical Quality Measures [ No reported AMI, CVA or VTE this stay] Coding Level of Care Code Acute Code for Chg Fwd Diagnoses Cerebrovascular accident I63.9 Primary osteoarthritis of right knee M17.11 Hypertension I10 Time Spent (min) 25
[2023-03-17 17:13] VITALS: BP 158/76; PULSE 73; RESP 18; TEMP 36.7; O2SAT 94
== END 2023-03-17 17:14 | disposition home health service (06) ==
LOC: MEDSURG 08:57
PROVIDERS: Admitting Provider Student in an Organized Health Care Education/Training Program; PCP Family Medicine; Visit Provider Student in an Organized Health Care Education/Training Program
PROC: 8E0Y0CZ Robotic Assisted Procedure of Lower Extremity, Open Approach (ICD-10-PCS; CPT 27447; principal; 2023-03-15 07:00)
DX: M17.11 Unilateral primary osteoarthritis, right knee (principal); I10 Essential (primary) hypertension; Z86.73 Personal history of transient ischemic attack (TIA), and cerebral infarction without residual deficits; Z79.02 Long term (current) use of antithrombotics/antiplatelets; E78.5 Hyperlipidemia, unspecified; E03.9 Hypothyroidism, unspecified; Z87.891 Personal history of nicotine dependence
CPT/HCPCS: 20985; 27447; 36415; 51702; 73560; 73562; 80048; 85025; 86850; 86900; 97110; 97116; 97161; 97165; C1713; C1776; G0378; J0131; J0171; J0690; J1885; J2371; J2405; J2704; J2795; J7030; J7120

== ENCOUNTER → 2023-04-06 10:14 | Outpatient (BNVA) | payer MEDICARE, OTHER, SELFPAY | PROVIDERS: Visit Provider Student in an Organized Health Care Education/Training Program | DX: Z96.651 Presence of right artificial knee joint (principal) | CPT/HCPCS: 73560; 73565; 97110; 97161; 99024 ==

== ENCOUNTER 2023-04-06 15:35 | Outpatient (RCR) | payer MEDICARE, OTHER, SELFPAY | END 2023-04-08 23:59 | disposition home or self-care (01) | LOC: SPT 15:35 | PROVIDERS: PCP Family Medicine; Visit Provider Student in an Organized Health Care Education/Training Program | DX: Z47.1 Aftercare following joint replacement surgery (principal); Z96.651 Presence of right artificial knee joint | CPT/HCPCS: 73560; 73565; 97110; 97161; 99024 ==

== ENCOUNTER 2023-04-09 06:00 | Outpatient (RCR) | payer MEDICARE, OTHER, SELFPAY | END 2023-05-09 23:59 | disposition home or self-care (01) | LOC: SPT 06:00 | PROVIDERS: PCP Family Medicine; Visit Provider Student in an Organized Health Care Education/Training Program | DX: Z47.1 Aftercare following joint replacement surgery (principal); Z96.651 Presence of right artificial knee joint | CPT/HCPCS: 97110 ==

== ENCOUNTER → 2023-04-27 08:03 | Outpatient (BNVA) | payer MEDICARE, OTHER, SELFPAY | PROVIDERS: PCP Family Medicine; Visit Provider Physician Assistant | DX: Z96.651 Presence of right artificial knee joint (principal) | CPT/HCPCS: 73560; 73565; 99024 ==

== ENCOUNTER → 2023-06-01 09:41 | Outpatient (BNVA) | payer MEDICARE, SELFPAY | PROVIDERS: PCP Family Medicine; Visit Provider Podiatrist Foot & Ankle Surgery | DX: M21.41 Flat foot [pes planus] (acquired), right foot; M21.42 Flat foot [pes planus] (acquired), left foot; M76.822 Posterior tibial tendinitis, left leg | CPT/HCPCS: 99213 ==

== ENCOUNTER 2023-06-24 11:41 | Outpatient (CLI) | payer MEDICARE, SELFPAY | END 2023-06-24 11:42 | disposition home or self-care (01) | LOC: SPT 11:42 | PROVIDERS: PCP Family Medicine; Visit Provider Podiatrist Foot & Ankle Surgery | DX: Z46.89 Encounter for fitting and adjustment of other specified devices (principal); M79.673 Pain in unspecified foot; M21.40 Flat foot [pes planus] (acquired), unspecified foot; M72.2 Plantar fascial fibromatosis; M76.829 Posterior tibial tendinitis, unspecified leg | CPT/HCPCS: 97760; L3030 ==

== ENCOUNTER → 2023-06-29 07:57 | Outpatient (BNVA) | payer MEDICARE, SELFPAY | PROVIDERS: PCP Family Medicine; Visit Provider Physician Assistant | DX: Z96.651 Presence of right artificial knee joint (principal) | CPT/HCPCS: 73560; 73565; 99213 ==

== ENCOUNTER 2023-07-25 11:07 | Emergency (ER) | payer MEDICARE, SELFPAY ==
[2023-07-25 11:14] VITALS: BP 134/77; PULSE 72; RESP 18; TEMP 36.3; O2SAT 99; BMI 26.2
--- NOTE | 2023-07-25 11:19 | CTR_ITS ---
PROCEDURE INFORMATION: Exam: CT Head Without Contrast Exam date and time: 07/25/2023 11:42 AM Age: 68 years old Clinical indication: Dizziness; Additional info: Dizzy TECHNIQUE: Imaging protocol: Computed tomography of the head without contrast. Radiation optimization: All CT scans at this facility use at least one of these dose optimization techniques: automated exposure control; mA and/or kV adjustment per patient size (includes targeted exams where dose is matched to clinical indication); or iterative reconstruction. COMPARISON: MR head wo/w con [id number] 11/13/2020 1:55 PM RADIATION DOSE METRICS: Total DLP (mGy-cm): 1035.68 FINDINGS: Brain: Normal. No hemorrhage. Unremarkable white matter. No mass effect. Cerebral ventricles: No ventriculomegaly. Paranasal sinuses: Visualized sinuses are unremarkable. No fluid levels. Mastoid air cells: Visualized mastoid air cells are well aerated. Bones/joints: Unremarkable. No acute fracture. Soft tissues: Unremarkable. CT/CT head wo con* [id number] IMPRESSION: No acute intracranial abnormality.
--- NOTE | 2023-07-25 11:19 | ECG_ITS ---
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 Measurements Intervals [place] Rate: 64 P: 42 MI: 198 QRS: 60 QRSD: 99 T: 52 QT: 415 QTc: 430 Interpretive Statements SINUS RHYTHM Compared to ECG 11/11/2020 23:06:23 First degree AV block no longer present Electronically Signed On 07-25-2023 21:42:02 CDT by Kenisha Han M.D. [id number]
--- NOTE | 2023-07-25 11:20 | ED_ITS ---
HPI - Dizziness 2 General: Chief Complaint: Dizziness Stated Complaint: dizzy, vomiting Time Seen by Provider: 07/25/23 11:16 Source: patient Mode of arrival: ambulatory Limitations: no limitations History of Present Illness: HPI Narrative: 68-year-old female states she has been h aving vertigo since yesterday. She states she has no dizziness at rest but states with any movement she gets severely dizzy and has vomiting. States she has had this in the past but is worse today. She denies any headaches denies any fevers. She denies any weakness or slurred speech Associated symptoms: Denies chest pain, chills, headache(s), nausea or vomiting Review of Systems 2 Const: Denies: fever(s), chills, body aches or change in appetite Eyes: Denies: blurry vision or eye discomfort ENMT: Denies: throat pain or dental pain Card: Denies: chest pain Resp: Denies: dyspnea GI: Denies: abdominal pain, nausea, vomiting or diarrhea Musc: Denies: neck pain or back pain Skin/Breast: Denies: rash Neuro: Reports: dizziness; Denies: headache(s) PFSH ED 2 PFSH: Medical History COVID-19 vaccine administered Osteoarthritis Borderline hyperlipidemia Hypothyroidism Cerebrovascular accident Primary osteoarthritis of right knee Surgical History History of arthroscopy of right knee History of tubal ligation History of hysterectomy Hx of cholecystectomy Status post left knee replacement Family History Denies family history of Diabetes CAD (coronary artery disease) Clotting disorder Dementia Hyperlipidemia Psychiatric illness Chronic kidney disease (CKD) Suicide Anesthesia complication Bleeding disorder Family history of premature coronary artery disease Lung disease Cancer Hypertension Stroke Social History Smoking and tobacco/nicotine status: former use of tobacco/nicotine Quit status (tobacco/nicotine): has quit using Former quit date comment: More than 15 years ago Alcohol intake: never Substance/Drug Use: never Household members: family Physical Exam 2 Const: COMMON NORMALS: no acute distress, patient oriented x3 and healthy appearing HENMT: COMMON NORMALS: normocephalic and atraumatic HEAD & SCALP: n ormocephalic and atraumatic Eye: COMMON NORMALS: Equal, round and reactive pupils present and EOMs intact bilaterally PUPIL: Yes Equal, round and reactive pupils present Neck/C-Spine: COMMON NORMALS: full ROM and supple Chest: COMMONS NORMALS: normal inspection of the chest Resp: COMMON NORMALS: normal respiratory effort Cardio: COMMON NORMALS: regular rate, regular rhythm and No murmurs present (Cardio) RATE: regular rate RHYTHM: regular rhythm Extremity: COMMON NORMALS: normal to inspection and full ROM Neuro: COMMON NORMALS: patient oriented x3, moves all extremities and no focal motor deficits CRANIAL NERVES: Yes CN normal except as noted SPEECH: s peech normal MOTOR EXAM: 5/5 motor strength present throughout OTHER: Beating nystagmus when looking to the right Psych: COMMON NORMALS: mental status grossly normal, Normal thought process present and cooperative THOUGHT PROCESS: Normal thought process present Skin: COMMON NORMALS: no rashes or lesions noted and no wounds GENERAL SKIN EXAM: no rashes or lesions noted Course 2 Vital Signs: Vital signs: Vital Signs Temperature 97.4 F L 07/25/23 11:14 Pulse Rate 62 07/25/23 11:46 Respiratory Rate 18 07/25/23 11:46 Blood Pressure 119/74 07/25/23 11:46 Pulse Oximetry 98 07/25/23 11:46 Oxygen Delivery Me thod Room Air 07/25/23 11:46 MDM - Dizziness Medical Decision Making Patient presents here with vertigo is likely peripheral in nature her symptoms resolved here after Antivert she is able to ambulate the halls without any symptoms head CT is normal no signs of a stroke she stable for discharge we will prescribe her Antivert she is to follow-up with her PCP and return if worsening. Medical Records I reviewed the patient's medical records. Lab Data I reviewed the patient's lab results. 07/25/23 11:23 07/25/23 11:[address] 07/25/23 11:19 IMPRESSION: No acute intracranial abnormality. Laboratory Results WBC 6.29 10^3/uL (3.29-11.43) 07/25/23 11:23 RBC 4.88 10^6/uL (3.85-5.65) 07/25/23 11:23 Hgb 15.00 g/dL (11.27-16.99) 07/25/23 11:23 Hct 45.6 % (36-47) 07/25/23 11:23 MCV 93.4 fl (85-98) 07/25/23 11:23 MCH 30.7 pg (27-33) 07/25/23 11:23 MCHC 32.9 g/dL (30-55) 07/25/23 11:23 RDW 13.1 % (12.1-15.1) 07/25/23 11:23 Plt Count 290 10^3/cmm (157-399) 07/25/23 11:23 MPV 9.6 fL (7.4-10.4) 07/25/23 11:23 Neut % (Auto) 75.5 % 07/25/23 11:23 Lymph % (Auto) 18.3 % 07/25/23 11:23 [place] % (Auto) 4.8 % 07/25/23 11:23 Eos % (Auto) 0.6 % 07/25/23 11:23 Baso % (Auto) 0.5 % 07/25/23 11:23 Neut # (Auto) 4.75 10^3/uL (1.8-7.7) 07/25/23 11:23 Lymph # (Auto) 1.2 10^3/uL (0.8-4.8) 07/25/23 11:23 [place] # (Auto) 0.3 10^3/uL (0.2-0.9) 07/25/23 11:23 Eos # (Auto) 0.0 10^3/uL (0.0-0.8) 07/25/23 11:23 Baso # (Auto) 0.0 10^3/uL (0.0-0.1) 07/25/23 11:23 Nucleated RBC % (auto) 0 % 07/25/23 11:23 Nucleated RBCs # 0.0 /100WBC 07/25/23 11:23 Sodium 140 mmol/L (136-145) 07/25/23 11:23 Potassium 3.4 mmol/L (3.5-5.1) L 07/25/23 11:23 Chloride 101 mmol/L (98-107) 07/25/23 11:23 Carbon Dioxide 25 mmol/L (22-29) 07/25/23 11:23 Anion Gap 17.4 (5-19) 07/25/23 11:23 BUN 11 mg/dL (8-23) 07/25/23 11:23 Creatinine 0.5 mg/dL (0.5-0.9) 07/25/23 11:23 GFR Calculation 122.0 mL/min (90-130) 07/25/23 11:23 Glucose 162 mg/dL (65-115) H 07/25/23 11:23 Calculated Osmolality 293 mOsm/kg (285-295) 07/25/23 11:23 Calcium 9.2 mg/dL (8.5-10.5) 07/25/23 11:23 Total Bilirubin 0.6 mg/dL (0.15-1.2) 07/25/23 11:23 AST 11 U/L (0-32) 07/25/23 11:23 ALT 13 U/L (0-33) 07/25/23 11:23 Alkaline Phosphatase 95 U/L (35-105) 07/25/23 11:23 Total Protein 7.2 g/dL (6.6-8.7) 07/25/23 11:23 Albumin 4.4 g/dL (3.5-5.2) 07/25/23 11:23 Globulin 2.8 g/dL (1.3-4.6) 07/25/23 11:23 All radiology interpretation(s) finalized by discharge EKG Data EKG 1: I personally reviewed and interpreted this EKG as follows: EKG interpretation date: 07/25/23 EKG interpretation time: 11:29 Interpretation: nsr hr [address] or t wave abnormalities qrs 99 qtc 424 Discharge Plan Discharge Patient Disposition: Home Clinical Impression: Vertigo Condition: Stable Prescriptions: New meclizine 50 mg tablet 50 mg PO BID PRN (Reason: dizziness) Qty: 20 0RF ondansetron 4 mg tablet,disintegrating 4 mg PO Q6H PRN (Reason: nausea and vomiting) Qty: 14 0RF No Action levothyroxine 100 mcg capsule 100 mcg PO Q7D Rx Instructions: on wednesday escitalopram oxalate 20 mg tablet 20 mg PO QAM lisinopril 5 mg tablet 5 mg PO DAILY (DME) sole supports See Rx Instructions .Route .MEDSUPPLY Qty: 1 0RF Rx Instructions: As directed trazodone 50 mg Tablet 25 mg PO BEDTIME vitamin [id number] acid 0.5-1 mg Tablet 1 tab PO QAM docusate sodium [Stool Softener] 100 mg Capsule 300 mg PO BEDTIME PRN (Reason: Constipation) ferrous gluconate 324 mg (38 mg iron) Tablet 324 mg PO BEDTIME levothyroxine [Euthyrox] 88 mcg tablet See Rx Instructions .ROUTE .COMPLEX Rx Instructions: 88 mcg orally ;every day but wednesday cholecalciferol (vitamin D3) [Vitamin D3] 25 mcg (1,000 unit) Capsule 25 mcg PO QAM ascorbic acid (vitamin C) [Vitamin C] 1,000 mg Tablet 1,000 mg PO QAM calcium carbonate-vitamin D3 600 mg(1,500mg) -200 unit Tablet 1 tab PO QAM diphenhydramine HCl [Benadryl] 25 mg Capsule 50 mg PO BEDTIME fluticasone propionate 50 mcg/actuation [place],Suspension 1 spray INTRANASAL DAILY PRN (Reason: Allergy Symptoms) atorvastatin 40 mg Tablet 40 mg PO BEDTIME 30 Days Qty: 30 3RF clopidogrel 75 mg Tablet 75 mg PO DAILY 30 Days Qty: 30 3RF amlodipine 5 mg tablet 5 mg PO DAILY Qty: 30 3RF Discharge Orders: Discharge ED (Routine); Ordered 07/25/23 Ordered By: Rowena Shah Referrals: Abhay Chamorro MD [Primary Care Provider] - 4-7 days Discharge Diet: Advance as tolerated Discharge Activity: Resume usual activity Patient Instructions: Vertigo (ED) Coding Level of Care Code ED Molder Punch for Wilda Singh
[2023-07-25] MEDS: sodium chloride 0.9% 1,000 ML 999 ML IV (11:29)
[2023-07-25] MEDS: ondansetron 2 mg/ML SDV 2 mL 4 MG IVP (11:30)
[2023-07-25] MEDS: meclizine 25 mg tablet 50 MG PO (11:30)
[2023-07-25 11:36] LABS: Basophils % 0.5 %; Eosinophils % 0.6 %; Hematocrit 45.6 % (36-47); Lymphocytes # 1.2 10^3/uL (0.8-4.8); Lymphocytes % 18.3 %; Mean Corpuscular HGB Conc 32.9 g/dL (30-55); Mean Corpuscular Hemoglobin 30.7 pg (27-33); Mean Corpuscular Volume 93.4 fl (85-98); Mean Platelet Volume 9.6 fL (7.4-10.4); Monocytes # 0.3 10^3/uL (0.2-0.9); Monocytes % 4.8 %; Neutrophils # 4.75 10^3/uL (1.8-7.7); Neutrophils % 75.5 %; Nucleated Red Blood Cells % 0 %; Platelet Count 290 10^3/cmm (157-399); Red Blood Count 4.88 10^6/uL (3.85-5.65); Red Cell Distribution Width 13.1 % (12.1-15.1); White Blood Count 6.29 10^3/uL (3.29-11.43)
[2023-07-25 11:46] VITALS: BP 119/74; PULSE 62; RESP 18; O2SAT 98
[2023-07-25 11:50] LABS: Alanine Aminotransferase 13 U/L (0-33); Albumin Level 4.4 g/dL (3.5-5.2); Alkaline Phosphatase 95 U/L (35-105); Anion Gap 17.4 (5-19); Aspartate Amino Transferase 11 U/L (0-32); Blood Urea Nitrogen 11 mg/dL (8-23); Calcium 9.2 mg/dL (8.5-10.5); Carbon Dioxide 25 mmol/L (22-29); Chloride 101 mmol/L (98-107); Globulin 2.8 g/dL (1.3-4.6); Glucose 162 mg/dL (65-115); Osmolality Calculated 293 mOsm/kg (285-295); Potassium 3.4 mmol/L (3.5-5.1); Sodium 140 mmol/L (136-145); Total Bilirubin 0.6 mg/dL (0.15-1.2); Total Protein 7.2 g/dL (6.6-8.7)
--- NOTE | 2023-07-25 11:59 | PC.NURSE ---
Pt ambulated approx 60ft, tolerated well, no dizziness
[2023-07-25 12:23] VITALS: BP 119/74; PULSE 65; RESP 16; TEMP 36.3; O2SAT 99
== END 2023-07-25 12:24 | disposition home or self-care (01) ==
PROVIDERS: Emergency Provider Emergency Medicine; PCP Family Medicine
DX: R42 Dizziness and giddiness (principal); Z79.02 Long term (current) use of antithrombotics/antiplatelets; Z87.891 Personal history of nicotine dependence; Z86.73 Personal history of transient ischemic attack (TIA), and cerebral infarction without residual deficits
CPT/HCPCS: 70450; 80053; 85025; 93005; 96361; 96374; 99285; J2405; J7030; J8597

== ENCOUNTER → 2023-09-14 07:49 | Outpatient (BNVA) | payer MEDICARE, SELFPAY | PROVIDERS: PCP Family Medicine; Visit Provider Student in an Organized Health Care Education/Training Program | DX: Z96.651 Presence of right artificial knee joint (principal) | CPT/HCPCS: 73560; 73565; 99213 ==

== ENCOUNTER 2023-10-06 15:21 | Outpatient (CLI) | payer MEDICARE, SELFPAY ==
--- NOTE | 2023-10-06 15:26 | MM_ITS ---
WS: [email or web address] VIEWS: MLO and CC views both breasts. 3D digital tomosynthesis is also included in this exam. Comparison made with prior exam of 07/06/2008, 03/24/2010, 02/05/2012, 12/25/2013, 01/07/2015, 01/24/2016, 12/20/2016, 02/17/2018, 03/10/2019, 06/05/2020, 09/15/2021, 09/29/2022,. Findings: There was no sign of mass, architectural distortion or suspicious calcification in either breast. The re are scattered areas of fibroglandular density MM/[place] [id number] Impression: BI-RADS: 2-Benign finding. FOLLOW-UP: 1 Year Follow-up This mammogram was also analyzed by the Computer Aided Detection System R2 Imag e Foil Spinner.
== END 2023-10-06 15:22 | disposition home or self-care (01) ==
LOC: RAD 15:21
PROVIDERS: PCP Family Medicine; Visit Provider Family Medicine
DX: Z12.31 Encounter for screening mammogram for malignant neoplasm of breast (principal); R92.323 Mammographic fibroglandular density, bilateral breasts
CPT/HCPCS: 77063; 77067

== ENCOUNTER → 2023-10-18 07:16 | Outpatient (BNVA) | payer MEDICARE, SELFPAY | PROVIDERS: PCP Family Medicine; Visit Provider Podiatrist Foot & Ankle Surgery | DX: M21.41 Flat foot [pes planus] (acquired), right foot; M21.42 Flat foot [pes planus] (acquired), left foot; M76.821 Posterior tibial tendinitis, right leg; M76.822 Posterior tibial tendinitis, left leg | CPT/HCPCS: 99213 ==

== ENCOUNTER 2024-02-01 10:38 | Outpatient (RCR) | payer MEDICARE, SELFPAY | END 2024-02-07 23:59 | disposition home or self-care (01) | LOC: SPT 10:38 | PROVIDERS: PCP Family Medicine; Visit Provider Family Medicine | DX: S39.011D Strain of muscle, fascia and tendon of abdomen, subsequent encounter (principal); X58.XXXD Exposure to other specified factors, subsequent encounter | CPT/HCPCS: 97161 ==

== ENCOUNTER 2024-02-08 06:00 | Outpatient (RCR) | payer MEDICARE, SELFPAY | END 2024-03-03 23:59 | disposition home or self-care (01) | LOC: SPT 06:00 | PROVIDERS: PCP Family Medicine; Visit Provider Family Medicine | DX: S39.011D Strain of muscle, fascia and tendon of abdomen, subsequent encounter (principal); X58.XXXD Exposure to other specified factors, subsequent encounter | CPT/HCPCS: 97110 ==

== ENCOUNTER 2024-03-13 15:46 | Outpatient (CLI) | payer MEDICARE, SELFPAY ==
--- NOTE | 2024-03-13 16:16 | CT_ITS ---
WS: [email or web address] CT abdomen pelvis w con* [id number] REASON FOR EXAM: FEMORAL HERNIA WO OBSTRUCTION OR GANGRENE IV CONTRAST ADMINISTERED: 100 mL Omnipaque 350@3 mL/s. Oral contrast. Small bowel opacified to the il eocecal valve. No opacification of the colon. TOTAL EXAM DLP: 349.[address] scans at [facility] use at least one of these dose optimization techniques: automat ed exposure control; mA and/or kV adjustment per patient size (includes targeted exams where dose is matched to clinical indication); or iterative reconstruction. FINDINGS: LUNG BASES: No significant finding. ABDOMEN: Small cyst in the dome of the liver. Status post cholecystectomy. Mild compensatory dilatation of the common bile duct and the central mos t hepatic radicles postcholecystectomy. No obstructing calculus or mass. No pancreatic abnormality. Normal spleen. Minimal enlargement of the medial limb of the left adrenal gland with slight hypointensity. No discre te mass. Small cysts within both kidneys. No hydronephrosis. No mass or calculus. The abdominal aorta is calcified without aneurysmal dilatation. Major branches appear patent without significant stenosis. No free fluid or focal fluid collection. Normal bowel. PELVIS: No mass or adenopathy. Status post hysterectomy. Presumed previous nephrectomy. No free fluid or focal fluid collection. Right groin hernia sac with wide mouth, containing fat, mesentery, and small bowel loop. No free flui d, edema, or bowel abnormality to suggest incarceration. There does not appear to be significant femo ral vein compression and the hernia sac extends medial to the pubic tubercle. Similar hernia in the left groin containing only fat. SPINE AND BONY PELVIS: Degenerative spondylosis at L4-L5. No vertebral body abnormality. Symmetric mild osteoarthritis of th e hips. No focal bone lesion. CT/CT abdomen pelvis w con* [id number] IMPRESSION: Incidental, not significant findings in the liver and left adrenal as above. Postcholecystectomy changes in the central bile ducts and common duct as above. Bilateral groin hernias as above. The findings of the sac extending medial to t he pubic tubercle and no significant femoral vein compression favor inguinal he rnia. No evidence of incarceration.
[2024-03-13] MEDS: iohexol 350 mg/mL 500 mL Btl (per mL) PO (16:49)
[2024-03-13 16:57] LABS: Blood Urea Nitrogen 10 mg/dL (8-23); Glomerular Filtration Rate 70.9 mL/min (90-130)
[2024-03-13] MEDS: iohexol 350 mg/mL 500 mL Btl (per mL) IV (17:01)
== END 2024-03-13 15:47 | disposition home or self-care (01) ==
LOC: RAD 15:47
PROVIDERS: PCP Family Medicine; Visit Provider Surgery
DX: K40.21 Bilateral inguinal hernia, without obstruction or gangrene, recurrent (principal); R19.2 Visible peristalsis; R10.13 Epigastric pain; R10.12 Left upper quadrant pain; I70.0 Atherosclerosis of aorta; M51.360 Other intervertebral disc degeneration, lumbar region with discogenic back pain only; Z90.710 Acquired absence of both cervix and uterus; Z90.49 Acquired absence of other specified parts of digestive tract
CPT/HCPCS: 74177; 82565; 84520

== ENCOUNTER → 2024-03-14 08:07 | Outpatient (BNVA) | payer MEDICARE, SELFPAY | PROVIDERS: PCP Family Medicine; Visit Provider Student in an Organized Health Care Education/Training Program | DX: Z96.651 Presence of right artificial knee joint (principal) | CPT/HCPCS: 73560; 73565; 99213 ==

== ENCOUNTER 2024-10-09 15:50 | Outpatient (CLI) | payer MEDICARE, SELFPAY ==
--- NOTE | 2024-10-09 15:56 | MM_ITS ---
WS: [email or web address] BILATERAL 3D TOMOSYNTHESIS DIGITAL SCREENING MAMMOGRAPHY WITH CAD CLINICAL INFORMATION: SCREENING HISTORY: Screening mammogram. No current complaints. COMPARISON: 2023 TECHNIQUE: Bilateral CC and MLO views. FINDINGS: Scattered fibroglandular densities bilaterally. No suspicious focal mass, asymmetry, calcifications, or architectural distortion. No evidence of malignancy. Vascular calcification MM/MM scr BI tomosynthesis [id number] IMPRESSION: DENSITY: There are scattered areas of fibroglandular density. BI-RADS: 2 - Benign. FOLLOW UP: 1 Year Follow-up Recommend return to annual screening mammography.
== END 2024-10-09 15:51 | disposition home or self-care (01) ==
PROVIDERS: PCP Family Medicine; Visit Provider Family Medicine
DX: Z12.31 Encounter for screening mammogram for malignant neoplasm of breast (principal); R92.323 Mammographic fibroglandular density, bilateral breasts; R92.1 Mammographic calcification found on diagnostic imaging of breast
CPT/HCPCS: 77063; 77067

== ENCOUNTER 2024-12-01 12:54 | Outpatient (CLI) | payer MEDICARE, SELFPAY ==
--- NOTE | 2024-12-01 12:59 | XR_ITS ---
WS: [email or web address] SCREENING DEXA SCAN [employer] CLINICAL INFORMATION: OSTEOPOROSIS COMPARISON: 2022 FINDINGS: The L1-L4 bone mineral density measures 1.065 g/cm2. This corresponds to a T score score of -1.0 and Z score of 0.5. Left femoral neck bone mineral density measures 0.826 g/cm2. This corresponds to a T score of -1.4 and Z score of -0.1. Right femoral neck bone mineral density measures 0.876 g/cm2. This corresponds to a T score -1.0of and Z score of 0.3. Mean femoral neck bone mineral density measures 0.851 g/cm2. This corresponds to a T score of -1.2 and Z score of 0.1. XR/XR DEXA axial skeleton* [id number] IMPRESSION: Osteopenia lumbar spine. Osteopenia femoral necks. Patient's FRAX calculated 10 year probability for major osteoporotic fracture i s 12.2% and osteoporotic hip fracture is 2.6%. Bone mineral density lumbar spine increased 2.6% Bone mineral density femoral necks decreased -2.4%
== END 2024-12-01 12:55 | disposition home or self-care (01) ==
LOC: RAD 12:55
PROVIDERS: PCP Family Medicine; Visit Provider Family Medicine
DX: Z13.820 Encounter for screening for osteoporosis (principal); M85.88 Other specified disorders of bone density and structure, other site; M85.852 Other specified disorders of bone density and structure, left thigh; M85.851 Other specified disorders of bone density and structure, right thigh
CPT/HCPCS: 77080

== ENCOUNTER 2025-04-09 05:37 | Emergency (ER) | payer MEDICARE, SELFPAY ==
--- OUTSIDE RECORDS SUMMARY | 2025-04-09 05:45 | XMS_ITS | Clinical Summary ---
Author Organization [facility] Address [address] 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 Gender Identity Not on file Sexual Orientation Not on file Plan of Treatment Health Maintenance Due Date Last Done Comments DTAP/TDAP/TD VACCINES (1 - Tdap) 1972 BREAST CANCER SCREENING 1993 COLORECTAL SCREENING 1998 Colorectal Cancer Screening 1998 FIT-DNA Q 3 years 1998 FIT/FOBT Q 1 year 1998 Flex Sig/CT Colonography Q 5 years 1998 PNEUMOCOCCAL VACCINE 50+ YEARS (1 of 1 - PCV) 06/03/19 04 ZOSTER VACCINE (1 of 2) 2003 OSTEOPOROSIS SCREENING 2018 INFLUENZA VACCINE (#1) 2024 RSV VACCINE (60+ or ) (1 - 1-dose 75+ series) 2028 Care Teams Chief Talent Officer Relationship Specialty Start Date End Date Marito Welch MD [address] [place] [address] [address] [place] [id number] PCP - General 06/29/07
--- OUTSIDE RECORDS SUMMARY | 2025-04-09 05:45 | XMS_ITS | Continuity of Care Document ---
Author Organization [facility] Address [address] [place] [address] Care Team Providers Care Associate Trainer Name Role Phone ROSE JOHN Primary Care Provider Assessment No assessment recorded. Plan of Treatment Reminders Order Date Submit Date Provider Last Modified By Organization Details Last Modified Time Details Appointments OFFICE VISIT ALVARO 2024 07:00A Bobby John MD Not available Not available Not available Lab culture, urine 2024 025 [facility], [address] [place] [address], [facility] [address] [place], [address], 02/06/2025 15:15:23 urinalysi s, dipstick 2024 025 [facility] ([facility]), [address] [place], [address], 02/04/2025 11:41:41 Referral None recorded. Procedures None recorded. Surgeries None recorded. Imaging None recorded. Medication Orders nitrofura ntoin monohydra te/macroc rystals 100 mg capsule 2024 025 [facility], [address], [place], [address], 02/16/2025 05:01:05 Patient TargetsNo targets recorded. Patient InstructionsNo instructions recorded. Reason for Referral None Reported. Results Created Date Observation Date Name Description Value Unit Range Abnormal Flag Note LastModifiedBy Organization Detail LastModifiedTime 02/07/2002/06/2025 CULTU RE, URINE , ROUTI NE culture, urine, routine SEE NOTE abnormal CULTU RE, URINE , ROUTI NE Micro Numbe r: [id number] Test Statu s: Final Speci men Sourc e: Not given Speci men Quali ty: Adequ ate Resul t: 10,00 0-49, 000 CFU/m L of Esche daniel a coli Comme nt: No colle ction date was provi ded. The speci men is gener ally defin ed as stabl e up to 48 hours . The resul t(s) need( s) to be inter prete d cauti ously . Clini copat holog ic corre latio n is requi red. Repea t testi ng is recom issa d as clini edie indic ated. [employer] is avail able with quest ions or comme nts based on your area of inter est: [phone] ([phone]) E.col i ----- ----- ----- - INT SRUTHI AMOX/ CLAVU LANAT E S 4 AMP/S ULBAC RIVER S <=2 CEFAZ ANTONINA NR <=1 2 CEFEP KACIE S <=0.1 2 CEFTA ZIDIM E S <=0.5 CEFTR IAXON E S <=0.2 5 CIPRO FLOXA ADELSO S <=0.0 6 GENTA MICIN S <=1 IMIPE NEM S <=0.2 5 LEVOF LOXAC IN S <=0.1 2 MEROP ENEM S <=0.2 5 NITRO FURAN TOIN S 32 PIP/T AZOBA CTAM S <=4 TRIME THOPR IM/NELSON LFA S <=20 S = Susce ptibl e I = Inter media te R = Resis tant NS = Not susce ptibl e SDD = Susce ptibl e Dose Depen dent * = Not Teste d NR = Not Repor lars NN = See Thera py Comme nts THERA PY COMME NTS Note 1: For infec tions other than uncom plica lars UTI cause d by E. coli, K. pneum oniae or P. mirab ilis: Cefaz antonina is resis tant if SRUTHI > or = 8 mcg/m L. (Dist ingui shing susce ptibl e versu s inter media te for isola samantha with SRUTHI < or = 4 mcg/m L requi res addit ional testi ng.) Note 2: For uncom plica lars UTI cause d by E. coli, K. pneum oniae or P. mirab ilis: Cefaz antonina is susce ptibl e if SRUTHI <32 mcg/m L and predi cts susce ptibl e to the oral agent s cefac kb, cefdi jyoti, cefpo doxim e, cefpr ozil, cefur oxime , cepha lexin and lorac arbef . NO COLLE CTION DATE RECEI ARVIND. WE HAVE USED THE DATE THE SPECI MEN WAS RECEI ARVIND BY THIS LABOR ATORY THE COLLE CTION DATE. IF THIS IS INCOR RECT, PLEAS E CONTA CT CLIEN T SERVI MARCELA. PHONE NUMBE R: [phone] Not Available [facility] [address] [place], [address], 02/06/2025 15:15:23 02/05/2002/04/2025 urina lysis , dipst ick Leukocytes Small Not Available [facility] ([facility]) [address] [place] [address], [address], 02/04/2025 11:24:19 02/05/20 25 02/04/2025 urina lysis , dipst ick Nitrite positi ve Not Available [facility] ([facility]) [address] [place], [address], 02/04/2025 11:24:19 02/05/20 25 02/04/2025 urina lysis , dipst ick Urobilinogen 2 Not Available [facility] ([facility]) [address] [place], [address], 02/04/2025 11:24:19 02/05/20 25 02/04/2025 urina lysis , dipst ick Protein 300 Not Available [facility] ([facility]) [address] [place], [address], 02/04/2025 11:24:19 02/05/20 25 02/04/2025 urina lysis , dipst ick pH 5.5 Not Available [facility] ([facility]) [address] [place], [address], 02/04/2025 11:24:02/05/2002/04/2025 urina lysis , dipst ick Blood Large Not Available [facility] ([facility]) [address] [place], [address], 02/04/2025 11:24:19 02/05/20 25 02/04/2025 urina lysis , dipst ick Specific [place] 1.030 Not Available [facility] ( [facility]) [address] [place], [address], 02/04/2025 11:24:19 02/05/20 25 02/04/2025 urina lysis , dipst ick Ketone Trace Not Available [facility] ([facility]) [address] [place], [address], 02/04/2025 11:24:19 02/05/2002/04/2025 urina lysis , dipst ick Bilirubin Small Not Available [facility] ([facility]) [address] [place], [address], 02/04/2025 11:24:19 02/05/20 25 02/04/2025 urina lysis , dipst ick Glucose 100 Not Available [facility] ([facility]) [address] [place], [address], 02/04/2025 11:24:19 02/05/2002/04/2025 urina lysis , dipst ick Appearance Turbid Not Available [facility] ([facility]) [address] [place], [address], 02/04/2025 11:24:19 02/05/2002/04/2025 urina lysis , dipst ick Color Red Not Available [facility] ([facility]) [address] [place], [address], 02/04/2025 11:24:19 Result Notes None recorded. Problems Name Problem SNOMED Code Status Onset Date Resolution Date Notes Provider Name and Address Organization Details Recorded Time Hypothyroid ism 14831760 Active 2022 YARA bryant [facility]CMeaghan 4 07:56:02 Screening for osteoporosi s Completed 202210/30/2024 Evelyne bryant [facility] L.L.CMeaghan 5 16:06:22 History of cerebrovasc ular accident 140931750 Active 2022 YARA bryant [facility] 4 07:55:49 Hyperglycem ia 95763999 Active 2022 YARA bryant [facility] 4 07:55:56 Insomnia 014777383 Active 2023 YARA bryant [facility] L.L.CMeaghan 4 08:01:19 Essential hypertensio n 15793324 Active 2023 YARA bryant [facility] L.L.CMeaghan 4 08:17:23 Hyperlipide jono 44624989 Active 2023 YARA NEFF [facility], Amy 4 08:17:30 Depressive disorder 54141357 Active 2023 Evelyne Garcia [facility], Amy 5 08:28:30 Gastritis 5121806 Completed 202310/30/2024 Evelyne Garcia [facility], KateyCMeaghan 5 16:06:15 Pneumonitis 647459613 Completed 202310/30/2024 Evelyne Jose [facility], Amy 5 16:06:19 Abdominal pain 65501078 Completed 202310/30/2024 Evelyne Garcia [facility], Amy 5 16:06:04 Chronic low back pain 896153824 Active 2024 Evelyne Garcia [facility], DamonL.CMeaghan 5 08:28:14 Difficulty walking 197676791 Active 2024 Evelyne Jose [facility], Amy 5 08:28:47 Problem Notes None recorded. Procedures Surgical History Date Name Laterality Status Provider Name and Address Organization Details Recorded Time 03/10/20 23 total knee replacement completed YARA NEFF [facility], Amy 10/07/2023 08:11:39 08/10/19 21 Colonoscopy completed YARA NEFF [facility], Amy 10/07/2023 08:00:36 12/09/19 20 total knee replacement completed YARAREBECA NEFF [facility], Amy 10/07/2023 08:11:49 Hysterectomy completed YARA NEFF [facility], Amy 10/07/2023 07:59:21 [facility] 10/07/2023 08:00:02 Imaging Results None recorded. Procedure Notes None recorded. Medical Equipment None Reported. Allergies Allergen ID Allergen Name Allergen Category Reaction Reaction Severity Criticality Documentation Date Start Date Code Code System Note Provider Name and Address Organization Details Recorded Time 2880 Substance with sulfonami de structure and antibacte rial mechanism of action (substanc e) medicatio n Not available Not available Not available 09/17/2022 96409 8003 SNOMED NAY [facility], L.LAnne 3 17:26:07 Medications Name Sig Start Date Stop Date Status Note LastModified by Organization Details LastModified Time atorvasta tin 40 mg tablet TAKE 1 TABLET DAILY 2024 active Not Available Not Available Not Avai lable trazodone 50 mg tablet TAKE 1 TABLET AT BEDTIME 01/16 completed Not Available Not Available Not Available cetirizin e 10 mg tablet TAKE 1 TABLET BY MOUTH ONCE DAILY active Not Available Not Available No t Available Iron (ferrous sulfate) 325 mg (65 mg iron) tablet Take 1 tablet every day by oral route. active Not Available Not Available No t Available hydrocodo ne 5 mg-acetam inophen 325 mg tablet TAKE 1 TABLET BY MOUTH THREE TIMES DAILY FOR 4 DAYS 04/12 completed Not Available Not Available Not Available meloxicam 15 mg tablet TAKE 1 TABLET BY MOUTH ONCE DAILY 09/21 completed Not Available Not Available Not Available prednison e 20 mg tablet Take 2 tablets every day by oral route for 5 days. 12/02 completed Not Available Not Available Not Available Synthroid 100 mcg tablet TAKE 1 TABLET on wednesday and one tablet on wednesdayta ke 88 mcg all other days active Not Available Not Available No t Available clopidogr el 75 mg tablet TAKE 1 TABLET DAILY active Not Available Not Available No t Available amlodipin e 5 mg tablet TAKE 1 TABLET DAILY 2024 active Not Available Not Available Not Avai lable trazodone 100 mg tablet Take 1 tablet every day by oral route for 90 days. 2024 active Not Available Not Available Not Avai lable meclizine 25 mg tablet TAKE 2 TABLETS BY MOUTH TWICE DAILY NEEDED FOR DIZZINES S 05/30 /2024 completed Not Available Not Available Not Available pantopraz ole 40 mg tablet,de layed release Take 1 tablet every day by oral route for 30 days. 04/12 completed Not Available Not Available Not Available Synthroid 88 mcg tablet TAKE 1 TABLET 5 DAYS PER WEEK (wednesday through wednesday) active Not Available Not Available No t Available diclofena c potassium 50 mg tablet TAKE 1 TABLET BY MOUTH TWICE DAILY FOR 30 DAYS 09/21 completed Not Available Not Available Not Available monteluka st 10 mg tablet TAKE 1 TABLET BY MOUTH ONCE DAILY active Not Available Not Available No t Available lisinopri l 5 mg tablet Take 1 tablet every day by oral route for 90 days. 2024 active Not Available Not Available Not Avai lable ondansetr on 4 mg disintegr ating tablet DISSOLVE 1 TABLET IN MOUTH EVERY 6 HOURS NEEDED FOR NAUSEA AND VOMITING 10/06 completed Not Available Not Available Not Available fluticaso ne propionat e 50 mcg/actua tion nasal spray,yonas pension Wallace 1 spray every day by intranas al route for 30 days. 2024 active Not Available Not Available Not Avai lable naproxen 500 mg tablet TAKE 1 TABLET BY MOUTH TWICE DAILY - STOP MELOXICA M 09/21 completed Not Available Not Available Not Available escitalop delilah 20 mg tablet TAKE 1 TABLET DAILY active Not Available Not Available No t Available nitrofura ntoin monohydra te/macroc rystals 100 mg capsule Take 1 capsule every 12 hours by oral route for 5 days. 02/16 completed Not Available Not Available Not Available Vitamin C 1 daily active Not Available Not Av ailable Not Available Vitamin B-12 daily active Not Available Not Available Not Available calcium daily 04/07 completed 0; Recorded 07/06/19 23 10:51AM by Evelyne Pink RN, Office Visit; Not Available Not Available Not Available Laxative prn 01/16 completed Not Available Not Available Not Available Calcium 600 1 daily active Not Available Not Available Not Available ferrous gluconate at bedtime 04/07 completed Recorded 08/06/19 21 4:09PM by Nicolle Yoder RN, Office Visit; Refill Quantity : 0; Not Available Not Available Not Available Plavix daily 03/10 completed 436; Recorded 05/05/20 22 2:20PM by Evelyne Pink RN (Authori camille through Rose John MD), Annotati on/Adden dum; Mail Order Quantity : 90 Tablet; Mail Order Days: 90 Days; Refill Quantity : 90; Tablet; Not Available Not Available Not Available Vitamin D daily 2012 active Not Available Not Available Not Avai lable THSC Levothyro xine Sodium six days per week 03/10 completed 436; Recorded 03/02/20 22 4:10PM by Evelyne Pink RN (Authori maverickd through Rose John MD), Refill Request; Mail Order Quantity : 75 Tablet; Mail Order Days: 90 Days; Refill Quantity : 75; Tablet; Not Available Not Available Not Available Trazodone at bedtime 03/10 completed 436; Recorded 03/16/20 22 7:56AM by Yara Neff LPN (Authori maverickd through Rose John MD), Refill Request; Mail Order Quantity : 45 Tablet; Mail Order Days: 90 Days; Refill Quantity : 15; Tablet; Not Available Not Available Not Available Vitamin-C daily 04/07 completed 0; Recorded 07/06/19 23 10:51AM by Evelyne Pink RN, Office Visit; Not Available Not Available Not Available escitalop delilah oxalate daily 04/07 completed AM/sd; 436; Recorded 04/13/20 22 5:41PM by Yara Neff LPN (Authori camille through Rose John MD), Refill Request; Mail Order Quantity : 90 Tablet; Mail Order Days: 90 Days; Refill Quantity : 90; Tablet; Not Available Not Available Not Available Hydrocodo ne W/Acetami nophen three times daily 04/07 completed Recorded 07/07/19 23 2:48PM by Rose John MD, Refill Request; Refill Quantity : 0; Not Available Not Available Not Available amlodipin e besylate (bulk) daily 04/07 completed 436; Recorded 03/02/20 22 4:09PM by Evelyne Pink RN (Authori camille through Rose John MD), Refill Request; Mail Order Quantity : 90 Tablet; Mail Order Days: 90 Days; Refill Quantity : 90; Tablet; Not Available Not Available Not Available Eliquis 2.5 mg tablet TAKE ONE TABLET BY MOUTH TWICE DAILY FOR TWO WEEKS 04/07 completed Not Available Not Available Not Available Vitals Date Recorded Body height Body mass index (BMI) Body weight Body temperature Heart rate Oxygen saturation Systolic And Diastolic Provider Name and Address Organization Details Last Updated DateTime 5 160.02 cm 27.3 kg/m2 81849.3 2 g 97.8 [degF] 92 /min 98 % 142/74 mm[Hg] Erika Lionel [facility] 5 11:33:09 Social History Question Answer Notes LastModified by Organizat ion Details LastModified Time Tobacco Smoking Status Former Smoker Rose John MD [address] [place] [address], [address] 04/07/2023 11:59:59 When Did You Quit Smoking? 16+yearssinc elastcigaret te [email or web address] Information not available 04/07/2023 What Was The Date Of Your Most Recent Tobacco Screening? 02/04/2025 [email or web address] Information not available 02/04/2025 What Is Your Current Pack Years? 30ormorepack years [email or web address] Information not available 04/07/2023 How Many Years Have You Smoked Tobacco? 30 [email or web address] Information not available 04/07/2023 Sex: Unknown Functional Status Question Answer Note LastModified by Organizat ion Details LastModified Time Do you use any illicit or recreational drugs? No [email or web address] Information not available 04/07/2023 Do you or have you ever used any other forms of tobacco or nicotine? No [email or web address] Information not available 09/21/2022 What is your level of alcohol consumption? None [email or web address] Information not available 10/30/2024 Mental Status None recorded. Family History Relationship Description Onset Age of this Age Resolved Age Notes LastModified by Organization Details LastModified Time Mother Gastrointest inal stromal tumor [email or web address] Not available 10/06 07:58:03 Paternal Uncle Malignant neoplasm of lung [email or web address] Not available 10/06 07:58:15 Maternal Aunt Malignant neoplasm of breast [email or web address] Not available 10/06 07:58:30 Medical History No medical history recorded. Gynecological HistoryNo gynecological history recorded. Obstetrics History GPAL:G 0 P 0 0 0 0 Immunizations Vaccine Type Date Status Note Provider Nam e and Address Organization Details Recorded Time zoster live 4 completed Evelynebenjamin Krauseoch [facility] 04/07/2023 11:42:41 Influenza, split virus, trivalent, preservative 3 completed Evelyne Garcia [facility] 04/07/2023 11:42:41 zoster live 9 completed Evelyne Jose [facility] 04/07/2023 11:42:41 zoster live 8 completed Evelyne Jose [facility] 04/07/2023 11:42:41 Pneumococcal conjugate PCV 13 9 completed Evelyne Jose [facility] 04/07/2023 11:42:41 Tdap 4 completed Evelynebenjamin Garcia [facility] 04/07/2023 11:42:41 zoster recombinant 9 completed Evelyne Jose [facility] 04/07/2023 11:42:41 zoster recombinant 8 completed Evelyne Jose [facility] 04/07/2023 11:42:41 Influenza, high-dose, quadrivalent, PF 2 completed Evelyne Garcia [facility] 04/07/2023 11:42:41 Influenza, high-dose, quadrivalent, PF [address] [facility] 04/07/2023 11:42:41 COVID-19, mRNA, LNP-S, PF, 100 mcg/0.5mL dose or 50 mcg/0.25mL dose [address] [facility] 04/07/2023 11:42:41 COVID-19, mRNA, LNP-S, PF, 100 mcg/0.5mL dose or 50 mcg/0.25mL dose [address] [facility] 04/07/2023 11:42:41 COVID-19, mRNA, LNP-S, PF, 100 mcg/0.5mL dose or 50 mcg/0.25mL dose [address] [facility] 04/07/2023 11:42:41 COVID-19, mRNA, LNP-S, PF, 100 mcg/0.5mL dose or 50 mcg/0.25mL dose 2 completed [facility] 04/07/2023 11:42:41 COVID-19, mRNA, LNP-S, PF, 100 mcg/0.5mL dose or 50 mcg/0.25mL dose [address] [facility] 04/07/2023 11:42:41 pneumococcal polysaccharide PPV[address] [facility] 04/07/2023 11:42:41 COVID-19, mRNA, LNP-S, PF, 50 mcg/0.5 mL 3 completed Not Available [facility] 01/16/2025 08:42:14 Influenza, high-dose, trivalent, PF 4 completed Not Available [facility] 01/16/2025 08:42:14 COVID-19, mRNA, LNP-S, PF, 50 mcg/0.5 mL 4 completed Not Available [facility] 01/16/2025 08:42:14 Tdap 4 completed Evelyne bryant [facility].L.CMeaghan 04/12/2024 08:43:07 Pneumococcal conjugate PCV20, polysaccharide [id number] conjugate, adjuvant, PF 4 completed Evelyne bryant [facility].C[facility]han 04/12/2024 08:43:08 Past Encounters Encounter ID Performer Location Encounter Start Date Encounter Closed Date Diagnosis/Indication Diagnosis SNOMED-CT Code Diagnosis ICD10 Code Diagnosis IMO Codes Diagnosis Note [id number] Rose John MD [facility] ([facility]) [address] [place] [phone] 01/16/2025 08:41:59 01/17/2025 14:33:37 Depressive disorder 56955601 F32.A 26275 well controlled currently has mild depressive mood. Allergic rhinitis 964048 04 J30.9 3191290 [id number] DORETHA SHERIDAN [facility] ([facility]) [address] [place] [id number] 02/04/2025 11:21:30 02/04/2025 14:02:03 Dysuria 70188729 R30.0 67735 Acute urin ginger tract infection 851786837 N39.0 587261 Discussed to take antibiotic as prescribed until completedU rine culture ordered - will notify of any resultsEdu cated patient on increasing PO fluids of water, decreasing caffeine (coffee) and sugary drinks.May take OTC cranberry pill. Discussed if developmen t of abdominal pain, flank pain, fever, vomiting, worsening symptoms return to walk-in, PCP or ED for re-evaluat ion. Return to clinic if any changes, any worsening, any concernsPa tient verbalized understand ing of plan. Health Concerns Section Related Observation LastModified by Organization Ru vaughan LastModified Time None Recorded Concern Status LastModified by Organization Details LastModified Time None Recorded Payers Encounter Date Sequence Insurance Name Policy Number Policy Brock Covered Member ID Brock Member ID Guarantor Name 02/04/2025 1 [id number]IC[place]/ [place]ANTAGE - PPO) [id number] Mariano Breen [id number] Mariano Breen Notes Date Note Type Note Provider Name and Address Organization Details Recorded Time 02/04/2025 text/html ROS as noted in the HPI walk in ptPt has urinary burning, frequency and urgency for 3 days. Has taken cranberry pill for symptoms with no improvement. SARAH NEFF, [address], [address], [facility] 02/04/2025 11:51:27 OBGyn Episode No OBEpisode recorded.
--- OUTSIDE RECORDS SUMMARY | 2025-04-09 05:45 | XMS_ITS | Encounter Summary ---
Author Organization [facility] Address [address] [place] [address] Care Team Providers Care Structural Steel Painter Name Role Phone Marito Welch MD Primary Care Provider +- [phone] Encounter Details Date Type Department Care Team (Late st Contact Info) Description 06/02/2007 Outpatient [facility] [address] [place] [address] Marito Weclh MD [address] [address] Social History Tobacco Use Types Packs/Day Years Used Date Smoking Tobacco: Never Assessed Comments Unknown Sex and Gender Information Value Date Recorded Sex Assigned at Not on file 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
--- OUTSIDE RECORDS SUMMARY | 2025-04-09 05:45 | XMS_ITS | Data Portability ---
Author Organization 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 Plan of Treatment Reminders Order Date Submit Date Provider Last Modified By Organization Details Last Modified Time Details Appointments OFFICE VISIT ALVARO 2024 07:00A Bobby Chamorro MD Not available Not available Not available Lab culture, urine 2024 025 BEMENT [employer] [facility], [address] [place] [address], [facility] [address] [place], [address], 02/06/2025 15:15:23 urinalysi s, dipstick 2024 025 [facility] ([facility]), [address] [place], [address], 02/04/2025 11:41:41 CMP, serum or plasma 2024 025 BEMENT [facility], [address] [place] [address], [address], 10/23/2024 10:08:23 CBC 2024 025 BEMENT [facility], [address] [place] [address] Umair, [facility] [place], [address], 10/23/2024 09:37:40 thyrotrop in, QN, serum or plasma 2024 025 [facility], [address] [facility], [facility] 1, [place], [address], 10/23/2024 12:48:01 lipid panel, blood 2024 025 [facility], [address] [facility], [facility] 1, [place], [address], 10/23/2024 10:08:25 urinalysi s, dipstick 2024 025 [email or web address] [facility] ([facility]), [address] [place], [address], 07/01/2024 17:03:36 Referral None recorded. Procedures None recorded. Surgeries None recorded. Imaging DEXA - (M81.0) [facility] [address] [place], [address], 11/13/2024 16:23:20 Medication Orders nitrofura ntoin monohydra te/macroc rystals 100 mg capsule 2024 025 [facility] 15, [address], [place], [address], 02/16/2025 05:01:05 fluticaso ne propionat e 50 mcg/actua tion nasal spray,yonas pension 2024 025 [email or web address] [facility] [address] [facility], [place], [address], 01/16/2025 09:49:27 cetirizin e 10 mg tablet 2024 025 [facility] 15, [address], [place], [address], 01/16/2025 09:49:[address] 10 mg tablet 2024 025 [facility] 15, [address], [place], [address], 02/04/2025 12:28:15 trazodone 100 mg tablet [email or web address] [place] [address], [facility] [address] [place] [address], [place], [address], 10/30/2024 08:14:51 Macrobid 100 mg capsule 2024 025 [facility] 15, [address], [place], [address], 02/16/2025 05:01:05 Patient TargetsNo targets recorded. Patient Instructions Encounter Date Encounter Id Patient Instructions Last Modified By Organization Details Last Modified Time 06/25/2024 [id number] Increase fluids and follow up for worsening Not available 06/25/2024 13:30:58 Based on her symptoms, I will go ahead and place her on some Macrobid Not available 06/25/2024 13:26:33 Reason for Referral None Reported. Results Created Date Observation Date Name Description Value Unit Range Abnormal Flag Note LastModifiedBy Organization Detail LastModifiedTime 02/07/2002/06/2025 CULTU RE, URINE , ROUTI NE culture, urine, routine SEE NOTE abnormal CULTU RE, URINE , ROUTI NE Micro Numbe r: [id number] Test Statu s: Final Speci men [...] on your area of inter est: 866-M YXIMENA T ([phone]) E.col i ----- ----- ----- - INT [...] CLIEN T SERVI MARCELA. PHONE NUMBE R: [phone] [phone] Not Available [facility] [address] [place], [address], 02/06/2025 15:15:23 06/25/19 25 06/25/2024 urina lysis , dipst ick Leukocytes Negati ve Not Available [facility] ([facility]) [address] [place], [address], 06/25/2024 12:45:33 06/25/19 25 06/25/2024 urina lysis , dipst ick Nitrite negati ve Not Available [facility] ([facility]) [address] [place], [address], 06/25/2024 12:45:33 06/25/19 25 06/25/2024 urina lysis , dipst ick Urobilinogen .2 Not Available [facility] ([facility]) [address] [place], [address], 06/25/2024 12:45:33 06/25/19 25 06/25/2024 urina lysis , dipst ick Protein 100 Not Available [facility] ([facility]) [address] [place], [address], 06/25/2024 12:45:33 06/25/19 25 06/25/2024 urina lysis , dipst ick pH 6.0 Not Available [facility] ([facility]) [address] [place], [address], 06/25/2024 12:45:33 06/25/19 25 06/25/2024 urina lysis , dipst ick Blood Hemoly zed: Trace Not Available [facility] ([facility]) [address] [place], [address], 06/25/2024 12:45:33 06/25/19 25 06/25/2024 urina lysis , dipst ick Specific Orange 1.030 Not Available [facility] ( [facility]) [address] [place], [address], 06/25/2024 12:45:33 06/25/19 25 06/25/2024 urina lysis , dipst ick Ketone Negati ve Not Available [facility] ([facility]) [address] [place], [address], 06/25/2024 12:45:33 06/25/19 25 06/25/2024 urina lysis , dipst ick Bilirubin Negati ve Not Available [facility] ([facility]) [address] [place], [address], 06/25/2024 12:45:33 06/25/19 25 06/25/2024 urina lysis , dipst ick Glucose Negati ve Not Available [facility] ([facility]) [address] [place], [address], 06/25/2024 12:45:33 06/25/19 25 06/25/2024 urina lysis , dipst ick Appearance Slight ly Cloudy Not Available [facility] ([facility]) [address] [place], [address], 06/25/2024 12:45:33 06/25/19 25 06/25/2024 urina lysis , dipst ick Color Dark Yellow Not Available [facility] ([facility]) [address] [place], [address], 06/25/2024 12:45:33 10/24/19 25 10/23/2024 CBC WBC 6.2 x10 4.0-10 .5 Not Available [facility] [address], [place], [address], 10/23/2024 09:37:40 10/24/19 25 10/23/2024 CBC RBC 4.90 x10 3.50-5 .50 Not Available [facility] [address], [place], [address], 10/23/2024 09:37:40 10/24/19 25 10/23/2024 CBC HGB 15.1 g/dL 12.0-1 6.0 Not Available [facility] [address] [facility] [address] [facility] 1, [place], [address], 10/23/2024 09:37:40 10/24/19 25 10/23/2024 CBC HCT 46.7 % 37.0-4 7.0 Not Available [facility] [address] [facility] [facility] 1, [place], [address], 10/23/2024 09:37:40 10/24/19 25 10/23/2024 CBC MCV 95.3 fL 80.0-9 9.9 Not Available [facility] [address] [facility] [address] [facility] 1, [place], [address], 10/23/2024 09:37:40 10/24/19 25 10/23/2024 CBC MCH 30.7 pg 27.0-3 2.0 Not Available [facility] [address] [facility] [address] [facility] 1, [place], [address], 10/23/2024 09:37:40 10/24/19 25 10/23/2024 CBC MCHC 32.2 g/dL 32.0-3 6.0 Not Available [facility] [address] [facility] 1, [place], [address], 10/23/2024 09:37:40 10/24/19 25 10/23/2024 CBC RDW 13.5 % 11.5-1 4.5 Not Available [facility] [address] [facility] [address] [facility] 1, [place], [address], 10/23/2024 09:37:40 10/24/19 25 10/23/2024 CBC plt 250.2 x10 140.0- 451.0 Not Available [facility] [address] [facility] 1, [place], [address], 10/23/2024 09:37:40 10/24/19 25 10/23/2024 CBC lymphocytes % 17.1 % 20.0-5 0.0 low Not Available [facility] [address] [facility] [address] [facility], [place], [address], 10/23/2024 09:37:40 10/24/19 25 10/23/2024 CBC granulcytes % 72.9 % 30.0-7 0.0 high Not Available [facility] [address] [facility] 1, [place], [address], 10/23/2024 09:37:40 10/24/19 25 10/23/2024 CBC monocytes % 7.0 % 2.0-16 .0 Not Available [facility] [address] [facility], [place], [address], 10/23/2024 09:37:40 10/24/19 25 10/23/2024 CBC granulcytes# 4.5 x10 Not Bhumika ilable [facility] [address] [facility], [place], [address], 10/23/2024 09:37:40 10/24/19 25 10/23/2024 CBC lymphocytes # 1.1 x10 Not Available [facility] [address] [facility] [address] [facility] 1, [place], [address], 10/23/2024 09:37:40 10/24/19 25 10/23/2024 CBC monocytes # 0.4 x10 Not Avai lable [facility] [address] [facility] [facility] 1, [place], [address], 10/23/2024 09:37:40 10/24/19 25 10/23/2024 CMP (FEMA LE) glucose 100.0 mg/dL 60.0-9 9.0 high Not Available [facility] [address] [facility], [place], [address], 10/23/2024 10:08:23 10/24/19 25 10/23/2024 CMP (FEMA LE) BUN (blood urea nitrogen) 8.0 mg/dL 10.0-2 6.0 low Not Available [facility] [address] [facility], [place], [address], 10/23/2024 10:08:23 10/24/19 25 10/23/2024 CMP (FEMA LE) creatinine (serum) 0.6 mg/dL 0.4-1. 5 Not Available [facility] [address] [facility], [place], [address], 10/23/2024 10:08:23 10/24/19 25 10/23/2024 CMP (FEMA LE) BUN/creatini ne ratio 13.33 ratio Not Available [facility] [address] [facility], [place], [address], 10/23/2024 10:08:23 10/24/19 25 10/23/2024 CMP (FEMA LE) eGFR calculated 104.7 Not Available [facility] [address] [facility] [address] [facility] 1, [place], [address], 10/23/2024 10:08:23 10/24/19 25 10/23/2024 CMP (FEMA LE) total protein 7.1 g/dL 6.0-8. 5 Not Available [facility] [address] [facility], [place], [address], 10/23/2024 10:08:23 10/24/19 25 10/23/2024 CMP (FEMA LE) total bilirubin 0.5 mg/dL 0.2-1. 3 Not Available [facility] [address] [facility] 1, [place], [address], 10/23/2024 10:08:23 10/24/19 25 10/23/2024 CMP (FEMA LE) albumin 4.3 g/dL 3.5-5. 5 Not Available [facility] [address] [facility] 1, [place], [address], 10/23/2024 10:08:23 10/24/19 25 10/23/2024 CMP (FEMA LE) globulin 2.8 calc Not Available [facility] [address] [facility] 1, [place], [address], 10/23/2024 10:08:23 10/24/19 25 10/23/2024 CMP (FEMA LE) AST (SGOT) 20.0 U/L 0.0-46 .0 Not Available [facility] [address] [facility] 1, [place], [address], 10/23/2024 10:08:23 10/24/19 25 10/23/2024 CMP (FEMA LE) altv (SGPT) 21.0 U/L 13.0-6 9.0 normal Not Available [facility] [address] [facility] 1, [place], [address], 10/23/2024 10:08:23 10/24/19 25 10/23/2024 CMP (FEMA LE) A/G ratio 1.5 ratio Not Available [facility] [address] [facility] 1, [place], [address], 10/23/2024 10:08:23 10/24/19 25 10/23/2024 CMP (FEMA LE) ALP phos 77.0 U/L 30.0-1 40.0 normal Not Available [facility] [address] [facility] 1, [place], [address], 10/23/2024 10:08:23 10/24/19 25 10/23/2024 CMP (FEMA LE) calcium 9.1 mg/dL 8.4-10 .5 Not Available [facility] [address] [facility] 1, [place], [address], 10/23/2024 10:08:23 10/24/19 25 10/23/2024 CMP (FEMA LE) sodium 140.0 mmol/ L 136.0- 145.0 Not Available [facility] [address] [facility] 1, [place], [address], 10/23/2024 10:08:23 10/24/19 25 10/23/2024 CMP (FEMA LE) potassium 3.5 mmol/ L 3.5-5. 1 Not Available [facility] [address] [place] [address], [place], [address], 10/23/2024 10:08:23 10/24/19 25 10/23/2024 CMP (FEMA LE) chloride 105.0 mmol/ L 98.0-1 10.0 normal Not Available [facility] [address] [facility] 1, [place], [address], 10/23/2024 10:08:23 10/24/19 25 10/23/2024 CMP (FEMA LE) C02 26.0 mmol/ L 22.0-3 1.0 Not Available [facility] [address] [facility] [facility] 1, [place], [address], 10/23/2024 10:08:23 10/24/19 25 10/23/2024 CMP (FEMA LE) anion gap 9.0 calc Not Available [facility] [address] [facility] [place] [facility] 1, [place], [address], 10/23/2024 10:08:23 10/24/19 25 10/23/2024 CMP (FEMA LE) osmolality 287.7 calc Not Available [facility] [address] [facility] 1, [place], [address], 10/23/2024 10:08:23 10/24/19 25 10/23/2024 LIPID PROFI LE (FEMA LE) cholesterol 110.0 mg/dL 0.0-20 0.0 Not Available [facility] [address] [facility] 1, [place], [address], 10/23/2024 10:08:25 10/24/19 25 10/23/2024 LIPID PROFI LE (FEMA LE) trig 100.0 mg/dL 0.0-15 0.0 Not Available [facility] [address] [facility] 1, [place], [address], 10/23/2024 10:08:25 10/24/19 25 10/23/2024 LIPID PROFI LE (FEMA LE) HDL - direct 38.0 mg/dL >40.0 low Not Available [facility] [address] [facility] 1, [place], [address], 10/23/2024 10:08:25 10/24/19 25 10/23/2024 LIPID PROFI LE (FEMA LE) VLDL - direct 20.0 mg/dL Not Available [facility] [address] [facility] 1, [place], [address], 10/23/2024 10:08:25 10/24/19 25 10/23/2024 LIPID PROFI LE (FEMA LE) LDL - direct 52.0 mg/dL 0.0-13 0.0 Not Available [facility] [address] [facility] [address], [place], [address], 10/23/2024 10:08:25 10/24/19 25 10/23/2024 TSH TSH 2.43 uIU/m L 0.49-3 .82 Not Available [facility] [address] [facility] [address], [place], [address], 10/23/2024 12:48:01 02/05/20 25 02/04/2025 urina lysis , dipst ick Leukocytes Small Not Available [facility] ([facility]) [address] [place], [address], 02/04/2025 11:24:19 02/05/20 25 02/04/2025 urina lysis , dipst ick Nitrite positi ve Not Available [facility] ([facility]) [address] [place], [address], 02/04/2025 11:24:19 02/05/20 25 02/04/2025 urina lysis , dipst ick Urobilinogen 2 Not Available [facility] ([facility]) [address] [place], [address], 02/04/2025 11:24:19 02/05/20 25 02/04/2025 urina lysis , dipst ick Protein 300 Not Available [facility] ([facility]) [address] [place], [address], 02/04/2025 11:24:19 02/05/20 25 02/04/2025 urina lysis , dipst ick pH 5.5 Not Available [facility] ([facility]) [address] [place], [address], 02/04/2025 11:24:19 02/05/2002/04/2025 urina lysis , dipst ick Blood Large Not Available [facility] ([facility]) [address] [place], [address], 02/04/2025 11:24:19 02/05/2002/04/2025 urina lysis , dipst ick Specific Orange 1.030 Not Available [facility] ( [facility]) [address] [place], [address], 02/04/2025 11:24:19 02/05/2002/04/2025 urina lysis , dipst ick Ketone Trace Not Available [facility] ([facility]) [address] [place], [address], 02/04/2025 11:24:19 02/05/2002/04/2025 urina lysis , dipst ick Bilirubin Small Not Available [facility] ([facility]) [address] [place], [address], 02/04/2025 11:24:19 02/05/2002/04/2025 urina lysis , dipst ick Glucose 100 Not Available [facility] ([facility]) [address] [place], [address], 02/04/2025 11:24:19 02/05/2002/04/2025 urina lysis , dipst ick Appearance Turbid Not Available [facility] ([facility]) [address] [place], [address], 02/04/2025 11:24:19 02/05/20 25 02/04/2025 urina lysis , dipst ick Color Red Not Available [facility] ([facility]) [address] [place], [address], 02/04/2025 11:24:19 10/11/1910/09/2024 MAMMO , scree shakila, digit al, bilat eral No observ ation record ed. [email or web address] [facility] [address] [place], [address], 10/30/2024 08:14:16 12/02/1912/01/2024 DEXA No observ ation record ed. [facility] [address] [place], [address], 12/04/2024 10:13:11 Result Notes None recorded. Problems Name Problem SNOMED Code Status Onset Date Resolution Date Notes Provider Name and Address Organization Details Recorded Time Hypothyroid ism 14603105 Active 2022 YARA bryant [facility] 4 07:56:02 Screening for osteoporosi s Completed 202210/30/2024 Evelyne bryant [facility] 5 16:06:22 History of cerebrovasc ular accident 644946631 Active 2022 YARA bryant [facility] 4 07:55:49 Hyperglycem ia 30332172 Active 2022 YARA bryant [facility] 4 07:55:56 Insomnia 046952802 Active 2023 YARA bryant [facility] 4 08:01:19 Essential hypertensio n 30691972 Active 2023 YARA bryant [facility]CMeaghan 4 08:17:23 Hyperlipide jono 97209757 [facility] 4 08:17:30 Depressive disorder 82867203 Active 2023 Evelyne Garcia [facility] 5 08:28:30 Gastritis 5029967 Completed 202310/30/2024 [facility] 5 16:06:15 Pneumonitis 557037706 Completed 202310/30/2024 Evelyne Garcia [facility] 5 16:06:19 Abdominal pain 13175646 Completed 202310/30/2024 Evelyne Garcia [facility].L.CMeaghan 5 16:06:04 Chronic low back pain 046785389 Active 2024 Evelyne Garcia [facility] 5 08:28:14 Difficulty walking 657267384 Active 2024 Evelyne Garcia [facility] 5 08:28:47 Problem Notes None recorded. Procedures Surgical History Date Name Laterality Status Provider Name and Address Organization Details Recorded Time 03/10/20 23 total knee replacement completed YARA NEFF [facility], LMeaghanL.CMeaghan 10/07/2023 08:11:39 08/10/19 21 Colonoscopy completed YARA NEFF [facility], DamonLMeaghanCMeaghan 10/07/2023 08:00:36 12/09/19 20 total knee replacement completed YARA NEFF [facility], LMeaghanLMeaghanCMeaghan 10/07/2023 08:11:49 Hysterectomy completed YARA NEFF [facility], LMeaghanLAnne 10/07/2023 07:59:21 Cholecystectomy completed YARA NEFF [facility] 10/07/2023 08:00:02 Imaging Results None recorded. Procedure [...] Not available Not available Not available 09/17/2022 [id number] SNOMED LOU bryant [facility] 3 17:26:07 Medications Name Sig Start Date [...] MOUTH TWICE DAILY NEEDED FOR DIZZINES S 10/06 completed Not Available Not Available Not [...] e 50 mcg/actua tion nasal spray,yonas pension [place] 1 spray every day by intranas al [...] 22 2:20PM by Evelyne Pink RN (Authori zed through Rose Chamorro MD), Annotati on/Adden dum; Mail Order Quantity : 90 Tablet; Mail Order Days: 90 Days; Refill Quantity : 90; Tablet; Not Available Not Available Not Available Vitamin D daily 2012 active Not Available Not Available Not Avai lable [facility] Levothyro xine Sodium six days per week 03/10 completed 436; Recorded 03/02/20 22 4:10PM by Evelyne Pink RN (Authori zed through Rose Chamorro MD), Refill Request; Mail Order Quantity : 75 Tablet; Mail Order Days: 90 Days; Refill Quantity : 75; Tablet; Not Available Not Available Not Available Trazodone at bedtime 03/10 completed 436; Recorded 03/16/20 22 7:56AM by Yara Neff LPN (Authori zed through Rose Chamorro MD), Refill Request; Mail Order Quantity : 45 Tablet; Mail Order Days: 90 Days; Refill Quantity : 15; Tablet; Not Available Not Available Not Available Vitamin-C daily 04/07 completed 0; Recorded 07/06/19 23 10:51AM by Evelyne Pink RN, Office Visit; Not Available Not Available Not Available escitalop delilah oxalate daily 04/07 completed AM/sd; 436; Recorded 04/13/20 22 5:41PM by Yara Neff LPN (Authori zed through Rose Chamorro MD), Refill Request; Mail Order Quantity : 90 Tablet; Mail Order Days: 90 Days; Refill Quantity : 90; Tablet; Not Available Not Available Not Available Hydrocodo ne W/Acetami nophen three times daily 04/07 completed Recorded 07/07/19 23 2:48PM by Rose Chamorro MD, Refill Request; Refill Quantity : 0; Not Available Not Available Not Available amlodipin e besylate (bulk) daily 04/07 completed 436; Recorded 03/02/20 22 4:09PM by Evelyne Pink RN (Authori camille through Rose Chamorro MD), Refill Request; Mail Order Quantity : [...] Details Last Updated DateTime 5 160.02 cm 28 kg/m2 30004.2 9 g 98.4 [degF] 108 /min 95 % 146/70 mm[Hg] [facility] 5 12:57:26 Date Recorded Body height Body mass index (BMI) Body weight Body temperature Heart rate Oxygen saturation Systolic And Diastolic Provider Name and Address Organization Details Last Updated DateTime 5 160.02 cm 28 kg/m2 38292.5 9 g 97.7 [degF] 82 /min 97 % 132/72 mm[Hg] Evelyne Garcia [facility] 5 08:10:55 Date Recorded Body height Body mass index (BMI) Body weight Body temperature Heart rate Oxygen saturation Systolic And Diastolic Provider Name and Address Organization Details Last Updated DateTime 5 160.02 cm 27.5 kg/m2 72796.8 2 g 97.7 [degF] 85 /min 98 % 138/72 mm[Hg] YARA NEFF [facility] 5 08:47:09 Date Recorded Body height Body mass index (BMI) Body weight Body temperature Heart rate Oxygen saturation Systolic And Diastolic Provider Name and Address Organization Details Last Updated DateTime 5 160.02 cm 27.3 kg/m2 80824.3 2 g 97.8 [degF] 92 /min 98 % 142/74 mm[Hg] Erika [facility] 5 11:33:09 Social History Question Answer Notes LastModified by Organizat ion Details LastModified Time Tobacco Smoking Status Former Smoker Rose Chamorro MD [address] [place] [address], [id number], [facility], Patricia.LMeaghanCMeaghan 04/07/2023 11:59:59 When Did You Quit Smoking? 16+yearssinc elastcigaret te [email or web address] Information not available 04/07/2023 What Was The Date Of Your Most Recent Tobacco Screening? 02/04/2025 [email or web address] Information not available 02/04/2025 What Is Your Current Pack Years? 30ormorepack years Information not available 04/07/2023 How Many Years Have You Smoked Tobacco? 30 Information not available 04/07/2023 Sex: Unknown Functional Status Question Answer Note LastModified by Organizat ion Details LastModified Time Do you use any illicit or recreational drugs? No [email or web address] Information not available 04/07/2023 Do you or have you ever used any other forms of tobacco or nicotine? No [email or web address] Information not available 09/21/2022 What is your level of alcohol consumption? None [email or web address] Information not available 10/30/2024 Mental Status None recorded. Family History Relationship Description Onset Age of this Age Resolved Age Notes LastModified by Organization Details LastModified Time Mother Gastrointest inal stromal tumor Not available 10/06 07:58:03 Paternal Uncle Malignant neoplasm of lung [email or web address] Not available 10/06 07:58:15 Maternal Aunt Malignant neoplasm of breast [email or web address] Not available 10/06 07:58:30 Medical History No medical history recorded. Gynecological HistoryNo gynecological history recorded. Obstetrics History GPAL:G 0 P 0 0 0 0 Immunizations Vaccine Type Date Status Note Provider Nam e and Address Organization Details Recorded Time zoster live 4 completed Evelyne bryant [facility].CMeaghan 04/07/2023 11:42:41 Influenza, split virus, trivalent, preservative 3 completed Evelyne bryant [facility] 04/07/2023 11:42:41 zoster live 9 completed Evelyne Jose [facility], [facility] 04/07/2023 11:42:41 zoster live 8 completed Evelyne Jose [facility], [facility] 04/07/2023 11:42:41 Pneumococcal conjugate PCV 13 9 completed Evelyne Jose [facility], [facility] 04/07/2023 11:42:41 Tdap 4 completed Evelyne Jose [facility] 04/07/2023 11:42:41 zoster recombinant 9 completed Evelyne Jose [facility], [facility] 04/07/2023 11:42:41 zoster recombinant 8 completed Evelyne Jose null, [facility] 04/07/2023 11:42:41 Influenza, high-dose, quadrivalent, PF 2 completed Evelyne Jose [facility] 04/07/2023 11:42:41 Influenza, high-dose, quadrivalent, PF 3 [facility] 04/07/2023 11:42:41 COVID-19, mRNA, LNP-S, PF, 100 mcg/0.5mL dose or 50 mcg/0.25mL dose 1 [facility] 04/07/2023 11:42:41 COVID-19, mRNA, LNP-S, PF, 100 mcg/0.5mL dose or 50 mcg/0.25mL dose 1 completed [facility] 04/07/2023 11:42:41 COVID-19, mRNA, LNP-S, PF, 100 mcg/0.5mL dose or 50 mcg/0.25mL dose 2 completed Evelyne Jose null, [facility] 04/07/2023 11:42:41 COVID-19, mRNA, LNP-S, PF, 100 mcg/0.5mL dose or 50 mcg/0.25mL dose 2 completed Evelyne Jose null, [facility] 04/07/2023 11:42:41 COVID-19, mRNA, LNP-S, PF, 100 mcg/0.5mL dose or 50 mcg/0.25mL dose 1 completed [facility] 04/07/2023 11:42:41 pneumococcal polysaccharide PPV23 0 completed Evelyne Jose null, [facility] 04/07/2023 11:42:41 COVID-19, mRNA, LNP-S, PF, 50 mcg/0.5 mL 3 completed Not Available [facility] 01/16/2025 08:42:14 Influenza, high-dose, trivalent, PF 4 completed Not Available [facility] 01/16/2025 08:42:14 COVID-19, mRNA, LNP-S, PF, 50 mcg/0.5 mL 4 completed Not Available [facility] 01/16/2025 08:42:14 Tdap 4 completed Evelyne bryant, [facility] 04/12/2024 08:43:07 Pneumococcal conjugate PCV20, polysaccharide OOT205 conjugate, adjuvant, PF 4 completed Evelyne Jose null, [facility] 04/12/2024 08:43:08 Past Encounters Encounter ID Performer Location Encounter Start Date Encounter Closed Date Diagnosis/Indication Diagnosis SNOMED-CT Code Diagnosis ICD10 Code Diagnosis IMO Codes Diagnosis Note [id number] CAYETANO TAVAREZ [facility] ([facility]) [address] [place] [address] [phone] 5 09/17/2022 16:43:22 10/14/2022 16:04:35 Dysuria 41117971 R30.0 Acute urin ginger tract infection 487260097 N39.0 Start Macrobid BID x5 days today. Patient has a follow up with PCP on 09/21/22, encouraged to have urine re-evaluat ed if still having symptoms. Encouraged to drink lots of water and avoid caffeine and sugary drinks. Can continue cranberry juice if helping. If no improvemen t in 5 days, will return for further evaluation . [id number] Rose Chamorro MD [facility] ([facility]) [address] [place] [address] [id number] 5 09/21/2022 08:09:14 09/21/2022 17:41:20 Screening for osteoporosis 908544459 Z13.820 Hypothyroidism 05673880 E03.9 History of cerebrovascular accident 081637829 Z86.73 Hyperglycemia 89791777 R 73.9 Essential hypertension 32347235 I10 Hyperlipidemia 51561800 E78.5 Abnormal gait 67692831 R 26.2 Impaired mobility 294328 05 Z74.09 Pre-surger y evaluation 662994279 Z01.818 this patient is not at significan tly increased risk of cardiopulm onary complicati ons of her much needed orthopedic surgery and may proceed as planned. [id number] Rose Chamorro MD [facility] ([facility]) [address] [place] [address] [id number] 5 04/07/2023 11:28:10 04/07/2023 13:55:31 Essential hypertension 62079228 I10 Hypothyroidism 65375283 E03.9 History of cerebrovascular accident 222052028 Z86.73 Hyperglycemia 28006669 R 73.9 [id number] Rose Chamorro MD [facility] ([facility]) [address] [place] [address] [id number] 5 04/07/2023 08:06:26 04/08/2023 11:47:33 Hypothyroidism 18896265 E03.9 Hyperlipidemia 92336192 E78.5 [id number] Rose Chamorro MD [facility] ([facility]) [address] [place] [address] [id number] 5 09/30/2023 08:02:23 10/01/2023 10:20:20 Hypothyroidism 58205780 E03.9 [id number] Rose Chamorro MD [facility] ([facility]) [address] [place] [address] [phone] 5 10/07/2023 08:01:54 10/07/2023 08:51:46 Hypothyroidism 31865184 E03.9 Hyperlipidemia 20663490 E78.5 Essential hypertension 79995540 I10 Depressive disorder 3548 9007 F32.A Chronic insomnia 4741487 04 F51.04 [id number] Rose Chamorro MD [facility] ([facility]) [address] [place] [address] [id number] 5 10/22/2023 09:25:57 10/22/2023 11:47:38 Pneumonitis 680959964 J18.9 to ER if sx worsen Gastritis 3369405 K29.70 [id number] Rose Chamorro MD [facility] ([facility]) [address] [place] [address] [id number] 5 12/03/2023 08:02:01 12/03/2023 09:21:13 Hypothyroidism 82319943 E03.9 will recheck her tsh at her scheduled f/u in march. [id number] DORETHA CENTENO [facility] ([facility]) [address] [place] [address] [phone] 5 12/13/2023 17:09:43 12/13/2023 17:35:42 Acute urinary tract infection 648640240 N39.0 UA results reviewed and discussed with pt. We will start antibiotic s. Pt will increase oral fluids and can use cranberry. Return to office with no improvemen t or any problems. Go to ER with severe worsening or severe problems.W e will obtain urine culture [id number] Rose Chamorro MD [facility] ([facility]) [address] [place] [address] [id number] 5 01/26/2024 10:45:58 01/26/2024 11:22:30 Strain of abdominal muscle 574763095 S39.011A heat and restno lifting for the rest of the week. [id number] Rose Chamorro MD [facility] ([facility]) [address] [place] [address] [id number] 5 02/16/2024 11:09:57 02/16/2024 13:46:34 Hernia of anterior abdominal wall 430958350 K43.9 [id number] Rose Chamorro MD [facility] ([facility]) [address] [place] [address] [id number] 5 04/05/2024 08:12:05 04/10/2024 13:08:24 Essential hypertension 60867267 I10 Hypothyroidism 05252165 E03.9 will recheck her tsh at her scheduled f/u in march. Hyperlipidemia 80305439 E78.5 [id number] Rose Chamorro MD [facility] ([facility]) [address] [place] [address] [id number] 5 04/12/2024 07:57:48 04/12/2024 08:42:09 Cerebrovascular disease 28530337 I67.9 Chronic neck pain 821006 4862 107 M54.2 Chronic low back pain 27 2852718 M54.50 Administra tion of diphtheria, pertussis, and tetanus vaccine 058069190 Z23 Administra tion of pneumococcal vaccine 25672658 Z23 Essential hypertension 64756350 I10 History of cerebrovascular accident 363852971 Z86.73 Hyperglycemia 11555245 R 73.9 Hyperlipidemia 56487973 E78.5 Hypothyroidism 03022921 E03.9 will recheck her tsh at her scheduled f/u in march. Depressive disorder 3548 9007 F32.A well controlled currentlyh as mild depressive mood [id number] NIXON CHASE APRN [facility] ([facility]) [address] [place] [address] [id number] 5 06/25/2024 12:41:26 06/25/2024 13:38:23 Dysuria 89204140 R30.0 Acute urin ginger tract infection 321479071 N39.0 [id number] Rose Chamorro MD [facility] ([facility]) [address] [place] [address] [id number] 5 10/23/2024 08:12:29 10/23/2024 14:49:26 Essential hypertension 19135114 I10 Hyperlipidemia 06319051 E78.5 Hypothyroidism 83368943 E03.9 will recheck her tsh at her scheduled f/u in march. [id number] Rose Chamorro MD [facility] ([facility]) [address] [place] [address] [id number] 5 10/30/2024 08:01:45 10/30/2024 17:32:14 Chronic insomnia 964693669 F51.04 Screening for osteoporosis 528315340 Z13.820 656710 [id number] Rose Chamorro MD [facility] ([facility]) [address] [place] [address] [id number] 5 01/16/2025 08:41:59 01/17/2025 14:33:37 Depressive disorder 61726664 F32.A 23767 well controlled currently has mild depressive mood. Allergic rhinitis 812336 04 J30.9 1083191 [id number] DORETHA SHERIDAN [facility] ([facility]) [address] [place] [address] [id number] 5 02/04/2025 11:21:30 02/04/2025 14:02:03 Dysuria 66213137 R30.0 64334 Acute urin ginger tract infection 213380696 N39.0 919753 Discussed to take antibiotic as prescribed until [...] Concerns Section Related Observation LastModified by Organization Detai ls LastModified Time None Recorded Concern Status LastModified by Organization Details LastModified Time None Recorded Advance Directives Directive None Recorded Payers Insurance Date Sequence Insurance Name Policy Number Policy Brock Covered Member ID Brock Member ID Guarantor Name 02/04/2025 1 [id number]/ [place]ANTAGE - PPO) [id number] Mariano Breen [id number] Mariano Breen Notes Date Note Type Note Provider Name and Address Organization Details Recorded Time 5 text/html walk in ptPt has frequency, burning and lower abdominal pain for 1 week. She has been taking AZO NIXON CHASE APRN [address] [place], [address], [facility] 06/25/2024 13:32:52 5 text/html HyperlipidemiaReported by PatientHPIFor duration, patient reportschronic. For control, patient reportsusually well controlled. For adherence to treatment plan, patient reportstakes medications as prescribed. Hypertension IM/FMReported by PatientHPIFor quality, patient reportshere for check-up. For severity, patient reportsnormal (<120/<80 mmhg)andsevere. For duration, patient reportshtn present for ___ years. For onset/timing, patient reportsgradual onset. For alleviating factors, patient reportsmedication. For self care, patient reportsnon-smoker. For associated symptoms, patient reportsno shortness of breath,no palpitations, andno chest pain.home bp stays 120s systolic for the most part HypothyroidReported by PatientHPIFor reason for visit, patient reportstsh check/labs. For duration, patient reports>12 months. For associated symptoms, patient reportsno lightheadedness,no fatigue,no cold intolerance,no chest pain, andno palpitations. For treatment, patient reportslast tsh level: 2.43.ROS as noted in the HPI Pt states she is having a hard time staying asleep. She would like to discuss increasing her trazodone. Rose Chamorro MD [address] [place], [address], [facility] 10/30/2024 08:16:37 5 text/html CoughReported by PatientHPIFor associated symptoms, patient reportssputum productionbut reportsno feverandno wheezing. For quality, patient reportsproductive. For onset/timing, patient reportsgradual. For context, patient reportsnon-smokerandworse at night. For duration, (3-4 weeks).Patient reports that she has allergies. She coughs more when she lays down at night. last night however she did not cough at all. Patient has been taking benadryl and cough drops ROS as noted in the HPI Rose Chamorro MD [address] [place], [address], [facility] 01/16/2025 09:49:51 5 text/html ROS as noted in the HPI walk in ptPt has urinary burning, frequency and urgency for 3 days. Has taken cranberry pill for symptoms with no improvement. DORETHA SHERIDAN [address] [place], [address], [facility] 02/04/2025 11:51:27 OBGyn Episode No OBEpisode recorded.
--- OUTSIDE RECORDS SUMMARY | 2025-04-09 05:45 | XMS_ITS | Encounter Summary ---
Author Organization [employer] [facility] Address [address] [place] [address] Care Team Providers Care Instructional Developer Name Role Phone Marito Welch MD Primary Care Provider [phone]- [phone] Encounter Details Date Type Department Care Team (Latest Contact Info) Description 05/15/2007 Outpatient Historical [facility] [employer] Liaison [facility] 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
--- OUTSIDE RECORDS SUMMARY | 2025-04-09 05:45 | XMS_ITS | Encounter Summary ---
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
--- OUTSIDE RECORDS SUMMARY | 2025-04-09 05:45 | XMS_ITS | Continuity of Care Document ---
Author Organization [facility], [facility]) Address [address] [place] [address] Care Team Providers Care Assessment Nurse Practitioner Name Role Phone ROSE JOHN Primary Care Provider Assessment No assessment recorded. Plan of Treatment Reminders Order Date Submit Date Provider Last Modified By Organization Details Last Modified Time Details Appointments OFFICE VISIT ALVARO 2024 07:00A M Rose John MD Not available Not available Not available Lab None recorded. Referral None recorded. Procedures None recorded. Surgeries None recorded. Imaging None recorded. Medication Orders fluticaso ne propionat e 50 mcg/actua tion nasal spray,yonas pension [id number] [place] [address], [facility] [address] [place] [address], [id number], 01/16/2025 09:49:27 cetirizin e 10 mg tablet 2024 025 [facility], [address], [place], [address], 01/16/2025 09:49:[address] 10 mg tablet 2024 025 [facility], [address], [place], [address], 02/04/2025 12:28:15 Patient TargetsNo targets recorded. Patient InstructionsNo instructions recorded. Reason for Referral None Reported. Problems Name Problem SNOMED Code Status Onset Date Resolution Date Notes Provider Name and Address Organization Details Recorded Time Hypothyroid ism 93177773 Active 2022 YARA bryant [facility] 4 07:56:02 Screening for osteoporosi s Completed 202210/30/2024 Evelyne bryant [facility] 5 16:06:22 History of cerebrovasc ular accident 147736113 Active 2022 YARA bryant [facility] 4 07:55:49 Hyperglycem ia 74475792 Active 2022 YARA [facility]ryant [facility] 4 07:55:56 Insomnia 624611240 Active 2023 YARA [facility]ryant [facility] 4 08:01:19 Essential hypertensio n 43520518 Active 2023 YARA [facility]ryant [facility] 4 08:17:23 Hyperlipide jono 80158018 Active 2023 YARA [facility]ryant [facility] 4 08:17:30 Depressive disorder 06472360 Active 2023 Evelyne [facility]ryant [facility] 5 08:28:30 Gastritis 9484544 Completed 202310/30/2024 Evelyne bryant [facility] 5 16:06:15 Pneumonitis 502594491 Completed 202310/30/2024 Evelyne bryant [facility] 5 16:06:19 Abdominal pain 19919597 Completed 202310/30/2024 [facility] 5 16:06:04 Chronic low back pain 210732568 Active 2024 [facility] 5 08:28:14 Difficulty walking 015183304 Active 2024 [facility] 5 08:28:47 Problem Notes None recorded. Procedures Surgical History Date Name Laterality Status Provider Name and Address Organization Details Recorded Time 03/10/20 23 total knee replacement completed [facility] L[facility]han 10/07/2023 08:11:39 08/10/19 21 Colonoscopy completed [facility] 10/07/2023 08:00:36 12/09/19 20 total knee replacement completed [facility] 10/07/2023 08:11:49 Hysterectomy completed [facility] 10/07/2023 07:59:21 Cholecystectomy completed [facility] 10/07/2023 08:00:02 Imaging Results None recorded. Procedure [...] Not available Not available Not available 09/17/2022 [id number] SNOMED VINNYMOUSTAPHA DO [facility], LMeaghanL.CMeaghan 3 17:26:07 Medications Name Sig Start Date [...] e 50 mcg/actua tion nasal spray,yonas pension [place] 1 spray every day by intranas al [...] Evelyne Pink RN (Authori zed through Rose John MD), Annotati on/Adden dum; [...] Evelyne Pink RN (Authori zed through Rose John MD), Refill Request; Mail Order Quantity : 75 Tablet; Mail Order Days: 90 Days; Refill Quantity : 75; Tablet; Not Available Not Available Not Available Trazodone at bedtime 03/10 completed 436; Recorded 03/16/20 22 7:56AM by Yara Carrasquillo LPN (Authori maverickd through Rose John MD), [...] 436; Recorded 04/13/20 22 5:41PM by Yara Carrasquillo LPN (Authori maverickd through Rose John MD), [...] Updated DateTime 5 160.02 cm 27.5 kg/m2 33433.8 2 g 97.7 [degF] 85 /min 98 % 138/72 mm[Hg] YARA AISHWARYA [facility] 08:47:09 Social History Question Answer Notes LastModified by Organizat ion Details LastModified Time Tobacco Smoking Status Former Smoker Rose John MD [address] [place] [address], [id number], [facility] 04/07/2023 11:59:59 When Did You Quit Smoking? 16+yearssinc elastcigaret te [email or web address] Information not available 04/07/2023 What Was The Date Of Your Most Recent Tobacco Screening? 02/04/2025 [email or web address] Information not available 02/04/2025 What Is Your Current Pack Years? 30ormorepack years [email or web address] Information not available 04/07/2023 How Many Years Have You Smoked Tobacco? 30 [email or web address] Information not available 04/07/2023 Sex: Unknown Functional Status Question Answer Note LastModified by Organizat ion Details LastModified Time Do you use any illicit or recreational drugs? No [email or web address] Information not available 04/07/2023 Do you or have you ever used any other forms of tobacco or nicotine? No Information not available 09/21/2022 What is your level of alcohol consumption? None [email or web address] Information not available 10/30/2024 Mental Status None recorded. Family History Relationship Description Onset Age of this Age Resolved Age Notes LastModified by Organization Details LastModified Time Mother Gastrointest inal stromal tumor [email or web address] Not available 10/06 07:58:03 Paternal Uncle Malignant neoplasm of lung [email or web address] Not available 10/06 07:58:15 Maternal Aunt Malignant neoplasm of breast Not available 10/06 07:58:30 Medical History No medical history recorded. Gynecological HistoryNo gynecological history recorded. Obstetrics History GPAL:G 0 P 0 0 0 0 Immunizations Vaccine Type Date Status Note Provider Nam e and Address Organization Details Recorded Time zoster live 4 completed Evelyne bryant [facility] 04/07/2023 11:42:41 Influenza, split virus, trivalent, preservative 3 completed Evelyne Jose null, [facility] 04/07/2023 11:42:41 zoster live 9 completed Evelyne Jose null, [facility] 04/07/2023 11:42:41 zoster live 8 completed Evelyne Jose null, [facility] 04/07/2023 11:42:41 Pneumococcal conjugate PCV 13 9 completed Evelyne Jose null, [facility] 04/07/2023 11:42:41 Tdap 4 completed Evelyne Jose null, [facility] 04/07/2023 11:42:41 zoster recombinant 9 completed Evelyne Jose null, [facility] 04/07/2023 11:42:41 zoster recombinant 8 completed Evelyne Jose null, [facility] 04/07/2023 11:42:41 Influenza, high-dose, quadrivalent, PF 2 completed Evelyne Jose null, [facility] 04/07/2023 11:42:41 Influenza, high-dose, quadrivalent, PF 3 completed Evleyne Jose null, [facility] 04/07/2023 11:42:41 COVID-19, mRNA, LNP-S, PF, 100 mcg/0.5mL dose or 50 mcg/0.25mL dose 1 completed Evelyne Jose null, [facility] 04/07/2023 11:42:41 COVID-19, mRNA, LNP-S, PF, 100 mcg/0.5mL dose or 50 mcg/0.25mL dose 1 completed [facility] 04/07/2023 11:42:41 COVID-19, mRNA, LNP-S, PF, 100 mcg/0.5mL dose or 50 mcg/0.25mL dose 2 completed [facility] 04/07/2023 11:42:41 COVID-19, mRNA, LNP-S, PF, 100 mcg/0.5mL dose or 50 mcg/0.25mL dose 2 completed Evelyne Jose [facility] 04/07/2023 11:42:41 COVID-19, mRNA, LNP-S, PF, 100 mcg/0.5mL dose or 50 mcg/0.25mL dose 1 completed Evelyne Jose [facility] 04/07/2023 11:42:41 pneumococcal polysaccharide PPV23 0 completed [facility] 04/07/2023 11:42:41 COVID-19, mRNA, LNP-S, PF, 50 mcg/0.5 mL 3 completed Not Available [facility] 01/16/2025 08:42:14 Influenza, high-dose, trivalent, PF 4 completed Not Available [facility] 01/16/2025 08:42:14 COVID-19, mRNA, LNP-S, PF, 50 mcg/0.5 mL 4 completed Not Available [facility] 01/16/2025 08:42:14 Tdap 4 completed [facility] 04/12/2024 08:43:07 Pneumococcal conjugate PCV20, polysaccharide EXV057 conjugate, adjuvant, PF 4 completed [facility] Jose null, [facility], LMeaghanLAnne 04/12/2024 08:43:08 Past Encounters Encounter ID Performer Location Encounter Start Date Encounter Closed Date Diagnosis/Indication Diagnosis SNOMED-CT Code Diagnosis ICD10 Code Diagnosis IMO Codes Diagnosis Note [id number] Rose John MD [facility] ([facility]) [address] [place] [address] 01/16/2025 08:41:59 01/17/2025 14:33:37 Depressive disorder 95747609 F32.A 29528 well controlled currently has mild depressive mood. Allergic rhinitis 690601 04 J30.9 3435716 Health Concerns Section Related Observation LastModified by Organization Detai ls LastModified Time None Recorded Concern Status LastModified by Organization Details LastModified Time None Recorded Payers Encounter Date Sequence Insurance Name Policy Number Policy Brock Covered Member ID Brock Member ID Guarantor Name 01/16/2025 1 [place]/ [place]ANTAGE - PPO) [id number] Mariano Breen [id number] Mariano Breen Notes Date Note Type Note Provider Name and Address Organization Details Recorded Time 01/16/2025 text/html CoughReported by PatientHPIFor associated symptoms, patient reportssputum productionbut reportsno feverandno wheezing. For quality, patient reportsproductive. For onset/timing, patient reportsgradual. For context, patient reportsnon-smokeran dworse at night. For duration, (3-4 weeks).Patient reports that she has allergies. She coughs more when she lays down at night. last night however she did not cough at all. Patient has been taking benadryl and cough drops ROS as noted in the HPI Rose John MD [address] [place] [address], [phone], [facility], DamonLAnne 01/16/2025 09:49:51 OBGyn Episode No OBEpisode recorded.
--- OUTSIDE RECORDS SUMMARY | 2025-04-09 05:45 | XMS_ITS | Encounter Summary ---
Author Organization [facility] Address [address] [facility] Attn: Epic Prelude ADT NAY OLMEDO [address] Care Team Providers Care Deposition Reporter Name Role Phone Marito Welch MD Primary Care Provider [phone] Encounter Details Date Type Department Care Team (Late st Contact Info) Description 11/22/2006 Outpatient Historical Idris Peñaloza MD NO ADDRESS ON FILE Social History Tobacco Use Types Packs/Day Years Used Date Smoking Tobacco: Never Assessed Comments Unknown Sex and Gender Information Value Date Recorded Sex Assigned at Not on file 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 Gender Identity Not on file Sexual Orientation Not on file documented as of this encounter Plan of Treatment Not on file documented as of this encounter Procedures Procedure Name Priority Date/Time Associated Diagnosis Comments LIPID PANEL Routine 11/22/2006 8:10 AM CDT documented in this encounter Results * (ABNORMAL) LIPID PANEL (11/22/2006 8:10 AM CDT) CHOLESTEROL 206(H) 75 - 200 mg/dL INTERFACE SYSTEM HDL 48 40 - 60 mg/dL INTERFACE SYSTEM TRIGLYCERIDE 98 0 - 200 mg/dL INTERFACE SYSTEM GLUCOSE 87 70 - 110 mg/dL INTERFACE SYSTEM CALCULATED LDL CHOLESTEROL 138(H) 0 - 130 mg/dL INTERFACE SYSTEM CALCULATED TOTAL CHOLESTEROL TO HDL RATIO 4.29 3.27 - 4.44 INTERFACE SYSTEM 11/22/2006 8:10 AM CDT us Idris Peñaloza MD CHEMISTRY ORDERABLES Edited INTERFACE SYSTEM Refer to clinic/hospital department documented in this encounter Visit Diagnoses Not on filedocumented in this encounter Care Teams Deposition Reporter Relationship Specialty Start Date End Date Marito Welch MD [address] [id number] PCP - General 06/29/07 documented as of this encounter
--- NOTE | 2025-04-09 06:00 | W.ED.ABDPA2 ---
HPI - Abdominal Pain General: Chief Complaint: Abdominal Pain Stated Complaint: ABD Pain Time Seen by Provider: 04/09/25 05:48 History of Present Illness: 69-year-old female hypothyroidism, CVA, hyperlipidemia and hypertension who presents to the emergency room with epigastric abdominal pain. Said this started just an hour or so ago. Says it is worse when she stands up and better when she lays down. She said she is starting a new job today and she needs a note for the job. No nausea or vomiting. No dysuria. Says she has had a similar episodes of this in the past and saw GI but was never determined what was causing it. Related Data Home Medications ?Medication ?Instructions ?Recorded ?Confirmed escitalopram oxalate 20 mg tablet 20 mg PO QAM 06/16/19 03/14/24 levothyroxine 100 mcg capsule 100 mcg PO Q7D 06/16/19 03/14/24 docusate sodium 100 mg capsule 300 mg PO BEDTIME PRN Constipation 01/02/20 03/14/24 (Stool Softener) trazodone 50 mg tablet 25 mg PO BEDTIME 01/02/20 03/14/24 vitamin B12 0.5 mg-folic acid 1 mg 1 tab PO QAM 01/02/20 03/14/24 tablet ferrous gluconate 324 mg (38 mg 324 mg PO BEDTIME 08/06/20 03/14/24 iron) tablet cholecalciferol (vitamin D3) 25 25 mcg PO QAM 08/08/20 03/14/24 mcg (1,000 unit) capsule (Vitamin D3) levothyroxine 88 mcg tablet See Rx Instructions .Route .COMPLEX 08/08/20 03/14/24 (Euthyrox) ascorbic acid (vitamin C) 1,000 mg 1,000 mg PO QAM 11/12/20 03/14/24 tablet (Vitamin C) calcium 600 mg (as 1 tab PO QAM 11/12/20 03/14/24 carbonate)-vitamin D3 5 mcg (200 unit) tablet diphenhydramine HCl 25 mg capsule 50 mg PO BEDTIME 11/12/20 03/14/24 (Benadryl) fluticasone propionate 50 1 spray intranasal DAILY PRN 11/12/20 03/14/24 mcg/actuation nasal Allergy Symptoms spray,suspension lisinopril 5 mg tablet 5 mg PO DAILY 04/27/23 03/14/24 Previous Rx's ?Medication ?Instructions ?Recorded amlodipine 5 mg tablet 5 mg PO DAILY #30 tabs 11/13/20 atorvastatin 40 mg tablet 40 mg PO BEDTIME 30 days #30 tabs 11/13/20 clopidogrel 75 mg tablet 75 mg PO DAILY 30 days #30 tabs 11/13/20 sole supports #1 ea 06/01/23 meclizine 50 mg tablet 50 mg PO BID PRN dizziness #20 tabs 07/25/23 ondansetron 4 mg disintegrating 4 mg PO Q6H PRN nausea and 07/25/23 tablet vomiting #14 tabs sucralfate 1 gram tablet (Carafate) 1 g PO TID 4 weeks #84 tabs 04/09/25 Allergies Allergy/AdvReac Type Severity Reaction Status Date / Time oxycodone Allergy Severe ADR-Vomitin Verified 03/14/24 08:14 g Sulfa (Sulfonamide Allergy algy-rash Verified 03/14/24 08:14 Antibiotics) Review of Systems Narrative: Constitutional symptoms: Negative except as documented in HPI. Skin symptoms: Negative except as documented in HPI. Eye symptoms: Negative except as documented in HPI. ENMT symptoms: Negative except as documented in HPI. Respiratory symptoms: Negative except as documented in HPI. Cardiovascular symptoms: Negative except as documented in HPI. Gastrointestinal symptoms: Negative except as documented in HPI. Genitourinary symptoms: Negative except as documented in HPI. Musculoskeletal symptoms: Negative except as documented in HPI. Neurologic symptoms: Negative except as documented in HPI. Psychiatric symptoms: Negative except as documented in HPI. Endocrine symptoms: Negative except as documented in HPI. PFS ED PFSH: Medical History (Updated 04/09/25 @ 07:40 by Crystal Engle MD) COVID-19 vaccine administered Osteoarthritis Borderline hyperlipidemia Hypothyroidism Cerebrovascular accident Primary osteoarthritis of right knee Surgical History History of arthroscopy of right knee History of tubal ligation History of hysterectomy Hx of cholecystectomy Status post left knee replacement Family History Denies family history of Diabetes CAD (coronary artery disease) Clotting disorder Dementia Hyperlipidemia Psychiatric illness Chronic kidney disease (CKD) Suicide Anesthesia complication Bleeding disorder Family history of premature coronary artery disease Lung disease Cancer Hypertension Stroke Social History Smoking and tobacco/nicotine status: former use of tobacco/nicotine Quit status (tobacco/nicotine): has quit using Former quit date comment: More than 15 years ago Alcohol intake: never Substance/Drug Use: never Household members: family Physical Exam Narrative: EXAM NARRATIVE: General: Alert, no acute distress. Skin: Warm, dry. Head: Normocephalic, atraumatic. Neck: Supple, trachea midline. Eye: Extraocular movements are intact. Ears, nose, mouth and throat: mucosa moist. Cardiovascular: Regular, Normal peripheral perfusion. Respiratory: Lungs are clear to auscultation, respirations are non-labored, breath sounds are equal, Symmetrical chest wall expansion. Gastrointestinal: Soft, epigastric tenderness to palpation, Non distended Musculoskeletal: Normal ROM, no deformity. Neurological: Alert and oriented, No focal neurological deficit observed. Psychiatric: Cooperative, appropriate mood & affect. Course Vital Signs: Vital signs: Vital Signs Pulse Rate 64 04/09/25 07:57 Respiratory Rate 16 04/09/25 07:57 Blood Pressure 142/70 04/09/25 07:57 Pulse Oximetry 96 04/09/25 07:57 Oxygen Delivery Me thod Room Air 04/09/25 07:40 MDM - Abdominal Pain Medical Decision Making Medical decision making Patient's reason for coming to the emergency room: Epigastric abdominal pain Social determinants: Patient says she is starting a new job today. I reviewed the patient's medical record. 69-year-old female hypothyroidism, CVA, hyperlipidemia and hypertension I reviewed the patient's current home meds Patient takes lisinopril and levothyroxine chronically. Alternate historians: None Differential diagnosis including but not limited to and based on the above HPI, review of systems and physical exam: In this patient with epigastric pain differential would include cholelithiasis or cholecystitis. Hepatitis. Diverticulitis. Constipation. UTI. colitis. small bowel obstruction. Crohn's flare. pancreatitis. gastritis. peptic ulcer. also concern for acute cardiac event. Orders placed to evaluate differential diagnosis based on the above differential, HPI and physical exam Lab Review: Laboratory results were reviewed and interpreted by myself the emergency room physician. No leukocytosis. No anemia. No renal failure. Lipase is negative. Liver enzymes are normal CT of the abdomen pelvis with contrast: No acute process. This was reviewed and interpreted by myself the emergency room physician. I also reviewed the radiology report. Reexamination: Patient remained stable. No increased work of breathing. No altered mental status. No focal motor deficits. Assessment and plan: Abdominal pain - Discharged home - Discussed plan with patient. Answered any questions. - Evaluation and treatment of this problem were appropriate in the emergency setting. Lab Data 04/09/25 06:00 04/09/25 06:00 Labs/Radiology: Radiology Impressions Abdomen/Pelvis CT 04/09/25 06:52 IMPRESSION: No acute findings. Laboratory Results WBC 4.47 10^3/uL (3.29-11.43) 04/09/25 06:00 RBC 4.56 10^6/uL (3.85-5.65) 04/09/25 06:00 Hgb 14.10 g/dL (11.27-16.99) 04/09/25 06:00 Hct 40.8 % (36-47) 04/09/25 06:00 MCV 89.5 fl (85-98) 04/09/25 06:00 MCH 30.9 pg (27-33) 04/09/25 06:00 MCHC 34.6 g/dL (30-55) 04/09/25 06:00 RDW 12.7 % (12.1-15.1) 04/09/25 06:00 Plt Count 251 10^3/cmm (157-399) 04/09/25 06:00 MPV 9.1 fL (7.4-10.4) 04/09/25 06:00 Neut % (Auto) 71.4 % 04/09/25 06:00 Lymph % (Auto) 18.8 % 04/09/25 06:00 [place] % (Auto) 7.2 % 04/09/25 06:00 Eos % (Auto) 1.8 % 04/09/25 06:00 Baso % (Auto) 0.4 % 04/09/25 06:00 Neut # (Auto) 3.19 10^3/uL (1.8-7.7) 04/09/25 06:00 Lymph # (Auto) 0.8 10^3/uL (0.8-4.8) 04/09/25 06:00 [place] # (Auto) 0.3 10^3/uL (0.2-0.9) 04/09/25 06:00 Eos # (Auto) 0.1 10^3/uL (0.0-0.8) 04/09/25 06:00 Baso # (Auto) 0.0 10^3/uL (0.0-0.1) 04/09/25 06:00 Nucleated RBC % (auto) 0 % 04/09/25 06:00 Nucleated RBCs # 0.0 /100WBC 04/09/25 06:00 Sodium 140 mmol/L (136-145) 04/09/25 06:00 Potassium 3.6 mmol/L (3.5-5.1) 04/09/25 06:00 Chloride 104 mmol/L (98-107) 04/09/25 06:00 Carbon Dioxide 26 mmol/L (22-29) 04/09/25 06:00 Anion Gap 13.6 (5-19) 04/09/25 06:00 BUN 7 mg/dL (8-23) L 04/09/25 06:00 Creatinine 0.5 mg/dL (0.5-0.9) 04/09/25 06:00 GFR Calculation Not Reportable 04/09/25 06:00 Glucose 126 mg/dL (65-115) H 04/09/25 06:00 Calculated Osmolality 290 mOsm/kg (285-295) 04/09/25 06:00 Lactic Acid 2.8 mmol/L (0.5-2.2) H 04/09/25 06:00 Calcium 8.8 mg/dL (8.5-10.5) 04/09/25 06:00 Total Bilirubin 0.5 mg/dL (0.15-1.2) 04/09/25 06:00 AST 14 U/L (0-32) 04/09/25 06:00 ALT 16 U/L (0-33) 04/09/25 06:00 Alkaline Phosphatase 92 U/L (35-105) 04/09/25 06:00 Total Protein 6.8 g/dL (6.6-8.7) 04/09/25 06:00 Albumin 4.2 g/dL (3.5-5.2) 04/09/25 06:00 Globulin 2.6 g/dL (1.3-4.6) 04/09/25 06:00 Lipase 37 U/L (13-60) 04/09/25 06:00 Amorphous Sediment Not Reportable 04/09/25 07:35 All radiology interpretation(s) finalized by discharge Discharge Plan Discharge Patient Disposition: Home Clinical Impression: Abdominal pain Condition: Stable Prescriptions: New sucralfate [Carafate] 1 gram tablet 1 g PO TID 28 Days Qty: 84 0RF Rx Instructions: with meals No Action levothyroxine 100 mcg capsule 100 mcg PO Q7D Rx Instructions: on wednesday escitalopram oxalate 20 mg tablet 20 mg PO QAM lisinopril 5 mg tablet 5 mg PO DAILY (DME) sole supports See Rx Instructions .Route .MEDSUPPLY Qty: 1 0RF Rx Instructions: As directed trazodone 50 mg Tablet 25 mg PO BEDTIME vitamin [id number] acid 0.5-1 mg Tablet 1 tab PO QAM docusate sodium [Stool Softener] 100 mg Capsule 300 mg PO BEDTIME PRN (Reason: Constipation) ferrous gluconate 324 mg (38 mg iron) Tablet 324 mg PO BEDTIME levothyroxine [Euthyrox] 88 mcg tablet See Rx Instructions .ROUTE .COMPLEX Rx Instructions: 88 mcg orally ;every day but wednesday cholecalciferol (vitamin D3) [Vitamin D3] 25 mcg (1,000 unit) Capsule 25 mcg PO QAM ascorbic acid (vitamin C) [Vitamin C] 1,000 mg Tablet 1,000 mg PO QAM calcium carbonate-vitamin D3 600 mg(1,500mg) -200 unit Tablet 1 tab PO QAM diphenhydramine HCl [Benadryl] 25 mg Capsule 50 mg PO BEDTIME fluticasone propionate 50 mcg/actuation Taylor,Suspension 1 spray INTRANASAL DAILY PRN (Reason: Allergy Symptoms) atorvastatin 40 mg Tablet 40 mg PO BEDTIME 30 Days Qty: 30 3RF clopidogrel 75 mg Tablet 75 mg PO DAILY 30 Days Qty: 30 3RF amlodipine 5 mg tablet 5 mg PO DAILY Qty: 30 3RF meclizine 50 mg tablet 50 mg PO BID PRN (Reason: dizziness) Qty: 20 0RF ondansetron 4 mg tablet,disintegrating 4 mg PO Q6H PRN (Reason: nausea and vomiting) Qty: 14 0RF Discharge Orders: Discharge ED (Routine); Ordered 12/01/25 Ordered By: Crystal Engle Referrals: Abhay Chamorro MD [Primary Care Provider, Family Practice] Discharge Diet: Usual diet Discharge Activity: Increase activity as tolerated Patient Instructions: Abdominal Pain (ED), Opioid Safety, Pain Management, Patient Portal & Ria Instructions Activity Restrictions/Additional Instructions: Thank you for choosing [facility] for your healthcare needs today. You have been screened and evaluated and felt safe for discharge. Health conditions do change or evolve sometimes and as such it is important that you follow up with your Primary Doctor to be re checked, 3-5 days is a general good time frame for follow up. You are always welcome to return to the ED for re assessment if your symptoms are worsening or you have new concerns Print Language: Swiss Coding Level of Care Code ED Can Bander Operator for Wilda Singh
[2025-04-09 06:04] VITALS: BMI 25.8
[2025-04-09 06:06] LABS: Hematocrit 40.8 % (36-47); Hemoglobin 14.10 g/dL (11.27-16.99); Mean Corpuscular HGB Conc 34.6 g/dL (30-55); Mean Corpuscular Hemoglobin 30.9 pg (27-33); Mean Corpuscular Volume 89.5 fl (85-98); Nucleated Red Blood Cells % 0 %; Platelet Count 251 10^3/cmm (157-399); Red Blood Count 4.56 10^6/uL (3.85-5.65); White Blood Count 4.47 10^3/uL (3.29-11.43)
[2025-04-09 06:28] LABS: Alanine Aminotransferase 16 U/L (0-33); Albumin Level 4.2 g/dL (3.5-5.2); Alkaline Phosphatase 92 U/L (35-105); Anion Gap 13.6 (5-19); Aspartate Amino Transferase 14 U/L (0-32); Blood Urea Nitrogen 7 mg/dL (8-23); Calcium 8.8 mg/dL (8.5-10.5); Carbon Dioxide 26 mmol/L (22-29); Chloride 104 mmol/L (98-107); Creatinine Clr Calc Pharmacy 58.9856; Globulin 2.6 g/dL (1.3-4.6); Glucose 126 mg/dL (65-115); Lipase 37 U/L (13-60); Osmolality Calculated 290 mOsm/kg (285-295); Potassium 3.6 mmol/L (3.5-5.1); Sodium 140 mmol/L (136-145); Total Protein 6.8 g/dL (6.6-8.7)
[2025-04-09 06:29] LABS: Lactic Sepsis W/Reflex 2.8 mmol/L (0.5-2.2)
--- NOTE | 2025-04-09 06:52 | CTR_ITS ---
PROCEDURE INFORMATION: Exam: CT Abdomen And Pelvis With Contrast Exam date and time: 04/09/2025 6:59 AM Age: 69 years old Clinical indication: Pain; Other: Epigastric; Prior surgery; Surgery date: 6+ months; Surgery type: Gallbladder, c section; Additional info: Epigastric abdominal pain TECHNIQUE: Imaging protocol: Computed tomography of the abdomen and pelvis with contrast. Radiation optimization: All CT scans at this facility use at least one of these dose optimization techniques: automated exposure control; mA and/or kV adjustment per patient size (includes targeted exams where dose is matched to clinical indication); or iterative reconstruction. Contrast material: [id number]; Contrast volume: 100 ml; Contrast route: INTRAVENOUS (IV); COMPARISON: CT abdomen pelvis w con* [id number] 03/13/2024 5:56 PM RADIATION DOSE METRICS: Total DLP (mGy-cm): 489.5 FINDINGS: Liver: Small hepatic cysts. Gallbladder and biliary ducts: Cholecystectomy. Pancreas: Normal. No ductal dilation. Spleen: Normal. No splenomegaly. Adrenal glands: Slight nodularity of the medial limb of the left adrenal gland unchanged. Kidneys and ureters: Normal. No hydronephrosis. Stomach and bowel: There is a large amount of colonic fecal material suggesting constipation. Appendix: No evidence of appendicitis. Intraperitoneal space: Unremarkable. No free air. No significant fluid collection. Vasculature: Unremarkable. No abdominal aortic aneurysm. Lymph nodes: Unremarkable. No enlarged lymph nodes. Urinary bladder: Unremarkable as visualized. Reproductive: Hysterectomy. Bones/joints: Unremarkable. No acute fracture. Soft tissues: Bilateral inguinal hernias containing only fat. CT/CT abdomen pelvis w con* [id number] IMPRESSION: No acute findings.
[2025-04-09 06:53] VITALS: BP 127/56; O2SAT 97
[2025-04-09] MEDS: iohexol 350 mg/mL 500 mL Btl (per mL) IV (07:02)
[2025-04-09 07:40] VITALS: BP 140/68; PULSE 62; RESP 16; O2SAT 94
[2025-04-09 07:52] LABS: Reflex Lactate Order REFLEX LACTIC ORDERD
[2025-04-09 07:57] VITALS: BP 142/70; PULSE 64; RESP 16; O2SAT 96
[2025-04-09 08:20] LABS: Glucose Urine UA Negative (Normal); Nitrate Urine Negative (Negative); Specific Gravity, Urine 1.024 (1.005-1.030)
== END 2025-04-09 08:05 | disposition home or self-care (01) ==
PROVIDERS: Emergency Provider Emergency Medicine; PCP Family Medicine
DX: R10.13 Epigastric pain (principal); Z79.02 Long term (current) use of antithrombotics/antiplatelets; Z87.891 Personal history of nicotine dependence; E78.49 Other hyperlipidemia; Z86.73 Personal history of transient ischemic attack (TIA), and cerebral infarction without residual deficits; I10 Essential (primary) hypertension
CPT/HCPCS: 74177; 80053; 81001; 83605; 83690; 85025; 99285